=== PATIENT | male | born 1950 | race Caucasian/White ===

== ENCOUNTER 2020-09-04 06:08 | Inpatient (IN) ==
--- NOTE | 2020-08-20 13:58 | PAT Medication Instructions ---
Medication Instructions Date of Service August 20, 2020 Home Medications aspirin 81 mg PO UD atorvastatin [Lipitor] 40 mg PO QAM cholecalciferol (vitamin D3) 25 mcg PO QAM clopidogrel [Plavix] 75 mg PO QAM cyanocobalamin (vitamin B-12) [Vitamin B-12] 1,000 mcg PO QAM finasteride [Proscar] 5 mg PO QAM folic acid 1 mg PO QAM omeprazole 40 mg PO QAM Continue as directed aspirin 81 mg PO UD ASK your prescriber and surgeon clopidogrel [Plavix] 75 mg PO QAM DO NOT take the morning of surgery cholecalciferol (vitamin D3) 25 mcg PO QAM cyanocobalamin (vitamin B-12) [Vitamin B-12] 1,000 mcg PO QAM folic acid 1 mg PO QAM Take morning of surgery With a small sip of water, OTHERWISE NOTHING TO EAT OR DRINK AFTER MIDNIGHT: atorvastatin [Lipitor] 40 mg PO QAM finasteride [Proscar] 5 mg PO QAM omeprazole 40 mg PO QAM Other Notes If you have any questions please call us at [phone] or [phone] or [phone] or [phone]
--- NOTE | 2020-08-21 10:54 | Anesthesiology Consultation ---
Date of Service August 21, 2020 Assessment & Plan (1) Encounter for pre-operative examination: - COVID screening: Per assessment on 08/21: Travel screen negative, no known COVID-19 positive contacts or current COVID-19 related symptoms. Patient vaccinated. Surgeon arranging preop COVID testing (scheduled 09/02; SUSANNAH). Awaiting results. - ASA/plavix instructions: per surgeon/prescriber (to hold Plavix 7 days prior to surgery and continue ASA perioperatively) Chart Review Chart Review: Acceptable Risk for Surgery and Patient seen in Pre Admission Testing Teaching & Discussion Pre-Anesthesia Teaching/Discussion Notes: Instructed NPO after midnight before surgery,except medications with 15 cc of water. Medication instructions provided according to the PAT guidelines. History Surgery Operation Date: 09/04/20 12:25 Proposed Procedures p L3-L5 Decompression and Fusion, Spinal Cord Monitoring - Alex Ron DO Height/Weight Height: 6 ft 2 in Weight: 106.1 kg Allergies Allergy/AdvReac Type Severity Reaction Status Date / Time No Known Drug Allergies Allergy Verified 08/20/20 10:04 Medications Home Medications Medication Instructions Recorded Confirmed Last Taken aspirin 81 mg PO UD 08/20/20 08/20/20 Unknown atorvastatin [Lipitor] 40 mg PO QAM 08/20/20 08/20/20 Unknown cholecalciferol (vitamin D3) 25 mcg PO QAM 08/20/20 08/20/20 Unknown clopidogrel [Plavix] 75 mg PO QAM 08/20/20 08/20/20 Unknown cyanocobalamin (vitamin B-12) 1,000 mcg PO QAM 08/20/20 08/20/20 Unknown [Vitamin B-12] finasteride [Proscar] 5 mg PO QAM 08/20/20 08/20/20 Unknown folic acid 1 mg PO QAM 08/20/20 08/20/20 Unknown omeprazole 40 mg PO QAM 08/20/20 08/20/20 Unknown Past Medical History Medical History (Updated 08/21/20 @ 11:20 by Jordana Kirby) BPH (benign prostatic hyperplasia) GERD (gastroesophageal reflux disease) controlled Hiatal hernia Hyperlipidemia Sleep apnea CPAP Spinal stenosis Transient ischemic attack (TIA) x2 (2015)- on plavix Exercise / Class Metabolic Activity II 4-5 Yardwork/Stairs/Walk up hill (one flight of stairs (no chest pain, no sob)) Past Surgical History Surgical History History of arthroscopy R/L rotator cuff repairs (Rx1, Lx2) History of colonoscopy History of esophagogastroduodenoscopy (EGD) History of herniorrhaphy Right inguinal S/P eye surgery Right lens 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 Physical Exam Vital Signs VITALS BP 130/88 P 90 TEMP 97.9 SP02 97%RA RESP 18 PHYSICAL Full cervical extension range of motion. Full TMJ range of motion. TMD 4 finger breaths Mallampati Score 3 Dentition: missing molars, + crown (upper front) Lungs: clear throughout to auscultation Cardiac: regular rate and rhythm, no murmurs noted Spine: normal Carotid arteries: negative bruit Extremities: no edema Trimmed jaimes Lab Results Anesthesia Preop Results Results Anesthesia Widget: WBC 6.68 K/uL (4.8-10.8) 08/21/20 Hgb 15.3 g/dL (14.0-18.0) 08/21/20 Hct 44.5 % (42-52) 08/21/20 Plt 256 K/uL (130-400) 08/21/20 Na 141 mmol/L (136-145) 08/21/20 K 4.5 mmol/L (3.5-5.1) 08/21/20 Cl 113 mmol/L (98-107) H 08/21/20 CO2 24 mmol/L (21-32) 08/21/20 BUN 29 mg/dl (7-18) H 08/21/20 Creat 0.96 mg/dl (0.6-1.4) 08/21/20 Glucose Level 85 mg/dl (70-99) 08/21/20 PT 10.0 Seconds (9.0-12.0) 08/21/20 PTT 24.9 Seconds (21.0-31.0) 08/21/20 INR 1.0 (0.9-1.1) 08/21/20 Urine Color Yellow 08/21/20 Urine Appearance Clear (Clear) 08/21/20 Urine pH 8.0 (4.5-7.5) H 08/21/20 Urine Specific [place] 1.023 (1.000-1.030) 08/21/20 Urine Protein Negative (Negative) 08/21/20 Urine Glucose (UA) Negative (Negative) 08/21/20 Urine Ketones Negative (Negative) 08/21/20 Urine Blood 1+ (Negative) H 08/21/20 Urine Nitrite Negative (Negative) 08/21/20 Urine Bilirubin Negative (Negative) 08/21/20 Urine Urobilinogen Negative (Negative) 08/21/20 Urine Leukocyte Esterase Negative (Negative) 08/21/20 Urine WBC (Auto) 1-5 /hpf (0-5) 08/21/20 Urine RBC (Auto) 10-30 /hpf (0-4) H 08/21/20 Urine Hyaline Casts (Auto) 0 /lpf (0-5) 08/21/20 Urine Epithelial Cells (Auto) 10-20 /lpf (0-5) H 08/21/20 Urine Bacteria (Auto) Negative (Negative) 08/21/20 Blood Type A Positive 08/21/20 Antibody Screen NEGATIVE 08/21/20 Testing Electrocardiogram Date: 08/21/20 NSR at 82bpm. Leftward axis. Otherwise normal ECG. Chest X-Ray Date: 08/21/20 FINDINGS: The cardiac and mediastinal contours are normal. There is no evidence of focal pulmonary consolidation. There is no evidence of failure. No pleural effusions are visualized.[ There is a suspected hiatal hernia. There are moderate basilar atelectatic changes. IMPRESSION: Suspected hiatal hernia. Mild basilar atelectatic change
[~2020-09-04 06:08] MED LIST: ACETAMINOPHEN 500 MG TAB PO SCH; CeleBREX 200 MG CAP PO SCH; GABAPENTIN 300 MG CAP PO SCH; LACTATED RINGER'S 1,000 ML IV SCH; ceFAZolin 2000MG 2,000 MG/15 ML SYR IV SCH
[2020-09-04] MEDS ORDERED: MIDAZOLAM HCL 1 MG/ML 2ML VIAL ONE (06:55)
[2020-09-04] MEDS ORDERED: fentaNYL citrate 100 MCG/2 ML VIAL ONE (06:55)
[2020-09-04] MEDS ORDERED: HYDROmorphone INJ 2 MG/ML SYR/VIAL ONE (06:55)
[2020-09-04] MEDS ORDERED: fentaNYL citrate 100 MCG/2 ML VIAL IV PRN (07:00)
[2020-09-04] MEDS ORDERED: NALOXONE HCL 0.4 MG/1 ML VIAL/CARP IV PRN ×2 (07:00→11:50)
[2020-09-04] MEDS ORDERED: PROMETHAZINE HCL 12.5 MG in SODIUM CHLORIDE 0.9% 50 ML IV PRN ×2 (07:00→11:50)
[2020-09-04] MEDS ORDERED: ATROPINE SULFATE 0.1 MG/ML 10ML SYR IV PRN (07:00)
[2020-09-04] MEDS ORDERED: LABETALOL HCL IV 5 MG/ML 20ML IV PRN (07:00)
[2020-09-04] MEDS ORDERED: ONDANSETRON INJ 2 MG/ML 2 ML VIAL IV PRN ×2 (07:00→11:50)
[2020-09-04] MEDS ORDERED: ePHEDrine sulfate 50 MG/ML AMP IV PRN (07:00)
[2020-09-04] MEDS ORDERED: FLUMAZENIL 0.1 MG/1 ML 10 ML VIAL IV PRN (07:00)
[2020-09-04] MEDS ORDERED: HYDROmorphone INJ 1 MG/ML SYRINGE IV PRN ×2 (07:00→11:50)
[2020-09-04] MEDS ORDERED: SCOPOLAMINE 1 MG TDSY TD ONE (07:07)
--- NOTE | 2020-09-04 07:26 | History & Physical Bridge Note ---
Date of Service September 04, 2020 History & Physical Bridge Note I have examined the patient, reviewed the History & Physical and in the interval since the performance of the History & Physical I have noted the following changes of clinical significance: no changes noted
--- NOTE | 2020-09-04 07:27 | History & Physical Report ---
Date of Service September 04, 2020 Assessment & Plan (1) Neurogenic 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 spinal stenosis: Admission and Anticipated Discharge Date Admission Date: L3-L5 decompression fusion History of Present Illness Chief Complaint: Back and leg pain Primary Care Provider: Jessee Bello DO This is a 70-year-old male who presents with current persistent back and leg pain. Failing course of nonoperative care is here for surgical invention. Allergies Allergy/AdvReac Type Severity Reaction Status Date / Time No Known Drug Allergies Allergy Verified 09/04/20 06:56 Home Medications Medication Instructions Recorded Confirmed Type aspirin 81 mg PO UD 08/20/20 08/20/20 History atorvastatin [Lipitor] 40 mg PO QAM 08/20/20 08/20/20 History cholecalciferol (vitamin D3) 25 mcg PO QAM 08/20/20 09/04/20 History clopidogrel [Plavix] 75 mg PO QAM 08/20/20 09/04/20 History cyanocobalamin (vitamin B-12) 1,000 mcg PO QAM 08/20/20 09/04/20 History [Vitamin B-12] finasteride [Proscar] 5 mg PO QAM 08/20/20 09/04/20 History folic acid 1 mg PO QAM 08/20/20 09/04/20 History omeprazole 40 mg PO QAM 08/20/20 08/20/20 History Past Med/Surg History Medical History (Updated 09/04/20 @ 07:27 by Alex Ron DO) BPH (benign prostatic hyperplasia) GERD (gastroesophageal reflux disease) controlled Hiatal hernia Hyperlipidemia Sleep apnea CPAP Spinal stenosis Transient ischemic attack (TIA) x2 (2015)- on plavix Surgical History History of arthroscopy R/L rotator cuff repairs (Rx1, Lx2) History of colonoscopy History of esophagogastroduodenoscopy (EGD) History of herniorrhaphy Right inguinal S/P eye surgery Right lens 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, 3rd, 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) Status post repair of hydrocele Social History Smoking Status: Never smoker Do You Dip or Chew Tobacco: No; Hx Alcohol Use: No Hx Substance Use: No Preferred Language: [place] Timorese Manager Investment Banking Required: No Beliefs That Will Affect Care: None Current Living Situation: Spouse Other Information That Helps Us Care for You: No Feels Safe at Home: Yes Safety Concerns: Feels Safe At This Time Assistive Devices: Cane Physical Exam Physical Exam: Patient is alert and oriented Heart regular rate and rhythm Lungs clear to auscultation Results & Data ([facility]) Vital Signs (Past 12 Hours) Vital Signs Temp Pulse Resp BP Pulse Ox 09/04/20 06:40 36.5 C 88 18 174/100 H 97
[2020-09-04] MEDS ORDERED: FAMOTIDINE/PF 20 MG/2 ML VIAL IV ONE (07:29)
[2020-09-04] MEDS ORDERED: BUPIVACAINE/EPINEPHRINE 0.5% MPF 1:200,000 30 ML VIAL ONE (07:38)
[2020-09-04] MEDS ORDERED: KETAMINE 50 MG/5 ML SYRINGE ONE (08:05)
[2020-09-04] MEDS ORDERED: ALBUMIN HUMAN 5% 12.5 GM/250 ML VIAL IV ONE (08:06)
[2020-09-04] MEDS ORDERED: PHENYLEPHRINE HCL 10 MG/ML VIAL ONE (08:19)
[2020-09-04] MEDS ORDERED: PROPOFOL IV EMULSION 10 MG/ML 20 ML VIAL IV ONE (08:19)
[2020-09-04] MEDS ORDERED: ONDANSETRON INJ 2 MG/ML 2 ML VIAL ONE (08:19)
[2020-09-04] MEDS ORDERED: ROCURONIUM BROMIDE 10 MG/ML 5 ML VIAL IV ONE (08:19)
[2020-09-04] MEDS ORDERED: GLYCOPYRROLATE 0.2 MG/ML VIAL ONE (08:19)
[2020-09-04] MEDS ORDERED: PHENYLEPHRINE 100MCG/ML 5ML SYR ONE (08:19)
[2020-09-04] MEDS ORDERED: NEOSTIGMINE METHYLSULFATE 1 MG/ML 10ML VIAL ONE (08:19)
[2020-09-04] MEDS ORDERED: DEXAMETHASONE SOD INJ 4 MG/ML VIAL ONE (08:19)
[2020-09-04] MEDS ORDERED: LIDOCAINE 2% 2 ML VIAL/AMP(20MG/ML) INFIL ONE (08:19)
[2020-09-04] MEDS ORDERED: METOCLOPRAMIDE HCL INJ 5 MG/ML 2 ML VIAL ONE (08:19)
[2020-09-04] MEDS ORDERED: FLOSEAL HEMOSTATIC MATRIX 10ML TOP ONE (09:41)
--- NOTE | 2020-09-04 09:49 | Operative Report ---
Post Operative Report Pre & Post Diagnosis Operation Date: 09/04/20 07:45 Pre-Op Diagnosis: Spinal Stenosis, Lumbar Region with Neurogenic Claudication Post-Op Diagnosis: Spinal Stenosis, Lumbar Region with Neurogenic Claudication I identified the patient and participated in the time-out.: Yes Procedure Operation Date: 09/04/20 07:45 Actual Procedures #1 Lumbar decompression with bilateral medial facetectomies and foraminotomies L2-3, L3-4 and L4-5. #2 posterior spinal fusion L3-4 L4-5. #3 placement posterior instrumentation L3-4 L4-5. #4 interbody fusion L3-4 L4-5. #5 placement peek cage 12 x 26 mm at L3-4 and L4-5. #6 placement locally harvested morselized autograft in the posterior gutters. #7 placement of infuse collagen sponge, and master graft in the posterior lateral gutters and I factor in the interbody space. Surgeon Alex Ron, DO Line Dancer Thee Brown Estimated Blood Loss 300 Findings Consistent with Post-Op Diagnosis Specimens None Indications This is a 70-year-old male who presents with above-mentioned diagnosis after failed extensive course of nonoperative care is here for surgical intervention. Description of Procedure Patient was met with identified informed consent obtained. Patient was then taken to the operative suite underwent ablation placed in a prone position Maged table top Keyur frame. All bony prominences well-padded eyes inspected to ensure no external pressure placed upon the. This point the lumbar spine was prepped and draped in a sterile fashion. Sharp dissection with the assistance of Bovie cautery performed down to and exposing the lamina and transverse processes of L3-L4-L5 bilaterally. From a caudal cephalad fashion complete laminectomy L4 L3 and partial laminectomy of L2 was performed including bilateral medial facetectomies and foraminotomies addressing severe spinal stenosis. Pedicle screws were then placed in L3-L4-L5 bilaterally with assistance of fluoroscopy and the proper sized kandace placed. By way of a transforaminal approach on the right a complete discectomy of L3-4 L5 was p erformed endplates curetted to subcortical being bone and a 13 x 26 mm peek cage filled with I factor tapped in position. Then proceeded to L3-L4 and again by way of a transforaminal portion right complete discectomy was performed endplates curetted to subcortically bone and a 13 x 26 mm peek cage filled with I factor tapped position. The rods were then compressed locked in final position bilaterally. The transverse processes of L3-L4-L5 burred to subcortical bleeding bone. Infuse collagen sponge master graft local autograft was placed in the posterior gutters. 15 round HENRRY drain inserted. The incision was then closed with 1 Vicryl the fascia 2-0 Vicryl subcutaneously and 4 Monocryl for final skin closure. Steri-Strip sterile dressing placed. Patient waken taken PACU stable condition. Please note spinal cord monitoring was utilized at the procedure no changes noted. Lastly Thee Brown was present at the entire surgery involved the patient positioning complex portions of the surgery and final skin closure. I attest to the content of the Intraoperative Record and any orders documented therein. Any exceptions are noted below.
--- NOTE | 2020-09-04 09:54 | History & Physical Report ---
Date of Service September 04, 2020 Assessment & Plan (1) Neurogenic 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 spinal stenosis: Admission and Anticipated Discharge Date Admission Date: L1-L3 decompression fusion History of Present Illness Chief Complaint: Back and leg pain Primary Care Provider: Jessee Bello DO This is a 70-year-old male who presents with chronic persistent back and leg pain. Failing course of nonoperative care is here for surgical intervention. Allergies Allergy/AdvReac Type Severity Reaction Status Date / Time No Known Drug Allergies Allergy Verified 09/04/20 06:56 Home Medications Medication Instructions Recorded Confirmed Type aspirin 81 mg PO UD 08/20/20 08/20/20 History atorvastatin [Lipitor] 40 mg PO QAM 08/20/20 08/20/20 History cholecalciferol (vitamin D3) 25 mcg PO QAM 08/20/20 09/04/20 History clopidogrel [Plavix] 75 mg PO QAM 08/20/20 09/04/20 History cyanocobalamin (vitamin B-12) 1,000 mcg PO QAM 08/20/20 09/04/20 History [Vitamin B-12] finasteride [Proscar] 5 mg PO QAM 08/20/20 09/04/20 History folic acid 1 mg PO QAM 08/20/20 09/04/20 History omeprazole 40 mg PO QAM 08/20/20 08/20/20 History Past Med/Surg History Medical History (Updated 09/04/20 @ 07:27 by Alex Ron DO) BPH (benign prostatic hyperplasia) GERD (gastroesophageal reflux disease) controlled Hiatal hernia Hyperlipidemia Sleep apnea CPAP Spinal stenosis Transient ischemic attack (TIA) x2 (2015)- on plavix Surgical History History of arthroscopy R/L rotator cuff repairs (Rx1, Lx2) History of colonoscopy History of esophagogastroduodenoscopy (EGD) History of herniorrhaphy Right inguinal S/P eye surgery Right lens 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, 3rd, 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) Status post repair of hydrocele Social History Smoking Status: Never smoker Do You Dip or Chew Tobacco: No; Hx Alcohol Use: No Hx Substance Use: No Preferred Language: Indonesian Tower Director Required: No Beliefs That Will Affect Care: None Current Living Situation: Spouse Other Information That Helps Us Care for You: No Feels Safe at Home: Yes Safety Concerns: Feels Safe At This Time Assistive Devices: Cane Physical Exam Physical Exam: Patient is alert and oriented Heart regular rhythm Lungs clear to auscultation Results & Data ([facility]) Vital Signs (Past 12 Hours) Vital Signs Temp Pulse Resp BP Pulse Ox 09/04/20 06:40 36.5 C 88 18 174/100 H 97
--- NOTE | 2020-09-04 10:06 | Fluoroscopy Report ---
FL lumbar spine 2-3V CLINICAL HISTORY: L3-L5 DECOMPRESSION AND FUSION COMPARISON STUDY: None. FLUOROSCOPY TIME: 26 seconds. FINDINGS: 2 fluoroscopic spot images of the lumbar spine were submitted. There is posterior decompres ginny and fusion from L3 through L5 with pedicle screws and rods. The hardware appears intact. Disc sp aces are placed. IMPRESSION: Fluoroscopy provided for posterior decompression and fusion from L3 through L5. ACT 112: Negative or not required by law. Electronically signed by: Raúl Chan M.D. 09/04/2020 10:05 AM
[2020-09-04] MEDS ORDERED: MAGNESIUM HYDROXIDE SUSP 30 ML UDC PO PRN (11:50)
[2020-09-04] MEDS ORDERED: ACETAMINOPHEN 1,000 MG/100 ML VIAL IV PRN (11:50)
[2020-09-04] MEDS ORDERED: diphenhydrAMINE Capsule 25 MG CAP PO PRN (11:50)
[2020-09-04] MEDS ORDERED: ALUMINUM/MAGNESIUM SUSP 30 ML UDC PO PRN (11:50)
[2020-09-04] MEDS ORDERED: DO NOT ADMINISTER PNEUMOCOCCAL VACCINE PRN (11:50)
[2020-09-04] MEDS ORDERED: FAMOTIDINE 20 MG TAB PO PRN (11:50)
[2020-09-04] MEDS ORDERED: LORazepam 0.5 MG/1 ML VIAL IV PRN (11:50)
[2020-09-04] MEDS ORDERED: ONDANSETRON 4 MG OD TAB PO PRN (11:50)
[2020-09-04] MEDS ORDERED: LORazepam 0.5 MG TAB PO PRN (11:50)
[2020-09-04] MEDS ORDERED: HYDROmorphone INJ 0.5 MG/0.5 ML SYR IV PRN (11:50)
[2020-09-04] MEDS ORDERED: DO NOT ADMINISTER FLU VACCINE PRN (11:50)
[2020-09-04] MEDS ORDERED: ACETAMINOPHEN 500 MG TAB PO PRN (11:50)
[2020-09-04] MEDS ORDERED: METOCLOPRAMIDE HCL INJ 5 MG/ML 2 ML VIAL IV PRN (11:50)
[2020-09-04] MEDS ORDERED: SOD PHOSPHATE/SOD BIPHOSPHATE ENEMA 132 ML BTL PR PRN (11:50)
[2020-09-04] MEDS ORDERED: hydrOXYzine HCl 25 MG TAB PO PRN (11:50)
--- NOTE | 2020-09-04 12:03 | Anesthesiology Progress Note ---
Date of Service September 04, 2020 Anesthesia Post Procedure Vital Signs Vital Signs: Temp Pulse Pulse Resp BP BP Pulse Ox 09/04/20 11:23 80 22 124/72 95 09/04/20 11:05 90 20 123/71 94 09/04/20 10:55 79 20 126/74 97 09/04/20 10:45 82 20 129/74 97 09/04/20 10:35 82 20 121/70 97 09/04/20 10:25 82 20 139/77 98 09/04/20 10:17 36.2 C L 100 H 16 144/76 H 98 09/04/20 06:40 36.5 C 88 18 174/100 H 97 Transfer of Care Handoff Completed per policy Notes Mental Status: alert / awake / arousable Patient Amnestic to Procedure: Yes Nausea / Vomiting: adequately controlled Pain: adequately controlled Airway Patency, RR, SpO2: stable & adequate BP & HR: stable & adequate Hydration State: stable & adequate Anesthetic Complications: no major complications apparent
--- NOTE | 2020-09-04 15:28 | Hospitalist Consultation ---
Date of Consultation September 04, 2020 Assessment & Plan (1) S/P spinal surgery: This is a 70yo M with PMH of TIAs, GERD, obstructive sleep apnea on CPAP, hyperlipidemia, BPH and other medical problems below who is POD#0 s/p lumbar decompression with bilateral medial facetectomies and foraminotomies L2-3, L3-4 and L4-5 and posterior spinal fusion L3-4 L4-[address] Ron. POD#0 s/p lumbar decompression with bilateral medial facetectomies and foraminotomies L2-3, L3-4 and L4-5 and posterior spinal fusion L3-4 L4-[address] Ron Per ortho for pain control, wound care, anticoagulation and activities Monitor H&H (EBL: 300ml, pre-op hgb 15.3) Continue incentive spirometry, PT/OT when appropriate (2) Transient ischemic attack (TIA): History of TIAs in 2013 Continue aspirin, statin Recommend resuming Plavix as soon as appropriate in post-op setting, per Dr. Ron (3) Sleep apnea: CPAP HS (4) Hyperlipidemia: Continue statin (5) BPH (benign prostatic hyperplasia): Continue Proscar Bladder scan PRN (6) GERD (gastroesophageal reflux disease): Continue PPI PCP: Dr. Hooks ([place]) Dispo: Per ortho Patient seen in collaboration with Dr. Avila. Please see addendum. Thank you for this consultation. We will follow the patient with you during their hospital stay. You can reach a member of the [facility] Hospitalist Team 17/10 via [employer]. Supervising Physician Co-Signing Physician Notes Patient seen and examined by me, care coordinated with Herlinda Breaux PA-C, please refer to her note above for further detail. Pt is a 70yo M with PMH of TIAs, GERD, obstructive sleep apnea on CPAP, hyperlipidemia, BPH , hiatal hernia, who is POD#0 s/p lumbar decompression with bilateral medial facetectomies and foraminotomies L2-3, L3-4 and L4-5 and posterior spinal fusion L3-4 L4-[address] Ron. Patient tolerated procedure well, currently laying in bed, in no acute distress. He is alert and oriented, answering questions appropriately. Patient's at the bedside. Pt denies any fevers, chills, chest pain, shortness of breath. Says that his legs are already feeling better. Has minimal back pain right now after surgery. Lungs are clear to auscultation bilaterally, w/o any wheezing rhonchi crackles. Heart sounds regular. Abdomen soft, nontender nondistended. Patient moves extremities. Continue to monitor hemodynamic status, H&H, Plavix restart per Dr. Ron, when appropriate. Jocelyn Avila MD History of Present Illness Reason for Consultation: post op med mgmt Attending Physician: Alex Ron DO History of Present Illness This is a 70yo M with PMH of TIAs, GERD, obstructive sleep apnea on CPAP, hyperlipidemia, BPH and other medical problems below who is POD#0 s/p lumbar decompression with bilateral medial facetectomies and foraminotomies L2-3, L3-4 and L4-5 and posterior spinal fusion L3-4 L4-[address] Ron. Feeling well postoperatively. Minimal surgical site discomfort. No paresthesias or pain in bilateral lower extremities. Tolerating diet without issue. Denies any nausea, vomiting,abdominal pain or diarrhea. No fever, chills, lightheadedness, chest pain, palpitations or shortness of breath. History of 2 TIAs in 2013. Is on aspirin, Plavix and statin. Receives primary care from Dr. Hooks in [place]. Allergies Allergy/AdvReac Type Severity Reaction Status Date / Time No Known Drug Allergies Allergy Verified 09/04/20 06:56 Home Medications Medication Instructions Recorded Confirmed Type aspirin 81 mg PO UD 08/20/20 08/20/20 History atorvastatin [Lipitor] 40 mg PO QAM 08/20/20 08/20/20 History cholecalciferol (vitamin D3) 25 mcg PO QAM 08/20/20 09/04/20 History clopidogrel [Plavix] 75 mg PO QAM 08/20/20 09/04/20 History cyanocobalamin (vitamin B-12) 1,000 mcg PO QAM 08/20/20 09/04/20 History [Vitamin B-12] finasteride [Proscar] 5 mg PO QAM 08/20/20 09/04/20 History folic acid 1 mg PO QAM 08/20/20 09/04/20 History omeprazole 40 mg PO QAM 08/20/20 08/20/20 History Patient History Medical History BPH (benign prostatic hyperplasia) GERD (gastroesophageal reflux disease) controlled Hiatal hernia Hyperlipidemia Sleep apnea CPAP Spinal stenosis Transient ischemic attack (TIA) x2 (2016)- on plavix Surgical History History of arthroscopy R/L rotator cuff repairs (Rx1, Lx2) History of colonoscopy History of esophagogastroduodenoscopy (EGD) History of herniorrhaphy Right inguinal S/P eye surgery Right lens 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, 3rd, 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) Status post repair of hydrocele Family History Other Hypertension Social History Smoking Status: Never smoker Do You Dip or Chew Tobacco: No; Hx Alcohol Use: No Hx Substance Use: No Preferred Language: Tunisian Communication Ability: Effective Pediatric Anesthesiologist Required: No Beliefs That Will Affect Care: None marital status: Current Living Situation: Spouse Other Information That Helps Us Care for You: No Feels Safe at Home: Yes Safety Concerns: Feels Safe At This Time Assistive Devices: Cane Review of Systems Review of Systems: At least ten systems reviewed and negative except as noted in the HPI. Physical Exam Physical Exam: General Appearance: WD/WN, vitals as above, NAD, sitting up in bed, pleasant, conversing easily Head: normocephalic, atraumatic Eyes: normal inspection, PERRL, conjunctivae normal, anicteric sclerae ENT: external ear and nose normal, oropharynx normal Neck: normal visual inspection, trachea midline, no thyromegaly Respiratory: normal respiratory effort, lungs clear to auscultation, no wheeze, rales, rhonchi. No accessory muscle use Cardiovascular: regular rate, rhythm, no murmur, normal peripheral pulses, no BLE edema Abdomen/GI: normal bowel sounds, soft, nontender, no hepatosplenomegaly : Bo in place Extremities/Musculoskeletal: +Lumbar surgical dressing c/d/i. + HENRRY drain visualized. No cyanosis or clubbing, extremities motor strength 5/5 Neurologic: PERRL, CN's II-XI intact bilaterally and moves all extremities Psychiatric: A+Ox3, euthymic affect Skin: no rashes, normal color, warm/dry Results & Data Results & Data ([facility]) Vital Signs (Past 12 Hours) Vital Signs Temp Pulse Pulse Resp BP BP Pulse Ox 09/04/20 14:15 105 H 18 138/81 96 09/04/20 13:55 36.4 C L 88 12 119/72 97 09/04/20 13:15 99 H 19 107/74 96 09/04/20 12:50 96 H 12 118/68 97 09/04/20 12:30 106 H 18 111/63 94 09/04/20 11:55 87 20 120/65 94 09/04/20 11:40 87 22 121/69 95 09/04/20 11:23 80 22 124/72 95 09/04/20 11:05 90 20 123/71 94 09/04/20 10:55 79 20 126/74 97 09/04/20 10:45 82 20 129/74 97 09/04/20 10:35 82 20 121/70 97 09/04/20 10:25 82 20 139/77 98 09/04/20 10:17 36.2 C L 100 H 16 144/76 H 98 09/04/20 06:40 36.5 C 88 18 174/100 H 97 Diagnostic Findings Lumbar Spine X-Ray 09/04/20 07:45 FL lumbar spine 2-3V CLINICAL HISTORY: L3-L5 DECOMPRESSION AND FUSION COMPARISON STUDY: None. FLUOROSCOPY TIME: 26 seconds. FINDINGS: 2 fluoroscopic spot images of the lumbar spine were submitted. There is posterior decompression and fusion from L3 through L5 with pedicle screws and rods. The hardware appears intact. Disc spaces are placed. IMPRESSION: Fluoroscopy provided for posterior decompression and fusion from L3 through L5. ACT 112: Negative or not required by law. Electronically signed by: Raúl Chan M.D. 09/04/2020 10:05 AM
[2020-09-04] MEDS: ceFAZolin 2000MG 2,000 MG/15 ML SYR IV SCH ×2 (18:15→22:51)
[2020-09-04] MEDS: LACTATED RINGER'S 1,000 ML IV SCH ×3 (18:15→23:53)
[2020-09-04] MEDS: DOCUSATE SODIUM/SENNA 50/8.6MG TAB PO SCH (19:58)
[2020-09-04] MEDS: oxyCODONE HCL IR 5 MG TAB (IMMEDIATE RELEASE) PO PRN (22:51)
[2020-09-05] MEDS ORDERED: Nursing to Pharmacy Communication SCH (05:15)
[2020-09-05] MEDS: POLYETHYLENE (MIRALAX) 17 GM PACK PO SCH ×3 (05:32→19:40)
[2020-09-05 06:00] LABS: Basophils # (auto) 0.01 K/uL (0-0.2); Basophils % (auto) 0.1 %; Eosinophils # (auto) 0.02 K/uL (0-0.5); Eosinophils % (auto) 0.2 %; Hematocrit (blood only) 35.7 % (42-52); Hemoglobin 12.2 g/dL (14.0-18.0); Immature Granulocytes # (auto) 0.03 K/uL (0.00-0.02); Immature Granulocytes % (auto) 0.2 %; Lymphocytes # (auto) 1.19 K/uL (1.2-3.4); Lymphocytes % (auto) 9.9 %; Mean Corpuscular Hemoglobin 32.2 pg (25-34); Mean Corpuscular Hgb Conc 34.2 g/dL (32-36); Mean Corpuscular Volume 94.2 fL (80-100); Mean Platelet Volume 8.9 fL (7.4-10.4); Monocytes # (auto) 1.34 K/uL (0.11-0.59); Monocytes % (auto) 11.2 %; Neutrophils # (auto) 9.42 K/uL (1.4-6.5); Neutrophils % (auto) 78.4 %; Platelet Count 219 K/uL (130-400); RDW Coefficient of Variation 13.5 % (11.5-14.5); RDW Standard Deviation 46.1 fL (36.4-46.3); Red Blood Count 3.79 M/uL (4.7-6.1); White Blood Count 12.01 K/uL (4.8-10.8)
[2020-09-05 06:19] LABS: BUN Creatinine Ratio 20.6 (10-20); Calcium 8.4 mg/dl (8.5-10.1); Creatinine Clr Calc Pharmacy 85.9 ml/min; Est GFR (African American) 86.8 ml/min; Est GFR (Non-African American) 74.9 ml/min; Potassium 4.1 mmol/L (3.5-5.1)
[2020-09-05] MEDS: CHOLECALCIFEROL 1,000 UNITS 25 MCG TAB PO SCH (08:41)
[2020-09-05] MEDS: PANTOprazole 40 MG TAB PO SCH (08:41)
[2020-09-05] MEDS: ATORVASTATIN 40 MG TAB PO SCH (08:41)
[2020-09-05] MEDS: FOLIC ACID 1 MG TAB PO SCH (08:42)
[2020-09-05] MEDS: CYANOCOBALAMIN 500 MCG TABLET (VITAMIN B-12) PO SCH (08:42)
[2020-09-05] MEDS: FINASTERIDE 5 MG TAB PO SCH (08:42)
--- NOTE | 2020-09-05 08:51 | Hospitalist Progress Note ---
Date of Service September 05, 2020 Assessment & Plan (1) S/P spinal surgery: This is a 70yo M with PMH of TIAs, GERD, obstructive sleep apnea on CPAP, hyperlipidemia, BPH and other medical problems below who is POD#0 s/p lumbar decompression with bilateral medial facetectomies and foraminotomies L2-3, L3-4 and L4-5 and posterior spinal fusion L3-4 L4-[address] Ron. POD#2 s/p lumbar decompression with bilateral medial facetectomies and foraminotomies L2-3, L3-4 and L4-5 and posterior spinal fusion L3-4 L4-[address] Ron Per ortho for pain control, wound care, anticoagulation and activities Monitor H&H (pre-op hgb 15.3, now 12.2) Continue incentive spirometry, PT/OT when appropriate Mild acute blood loss anemia, postop, dilutional Current hemoglobin 12.2, preop 15.3 Expected, no need for blood transfusion, continue to monitor H&H (2) Transient ischemic attack (TIA): History of TIAs in 2013 Continue aspirin, statin Recommend resuming Plavix as soon as appropriate in post-op setting, per Dr. Ron (3) Sleep apnea: CPAP HS (4) Hyperlipidemia: Continue statin (5) BPH (benign prostatic hyperplasia): Continue Proscar Bladder scan PRN (6) GERD (gastroesophageal reflux disease): Continue PPI PCP: Dr. Hooks ([place]) Dispo: Per ortho Thank you for this consultation. We will follow the patient with you during their hospital stay. You can reach a [facility] via [place] Text. Admission and Anticipated Discharge Date Admission Date: September 04, 2020 Subjective Patient seen in follow-up postop spinal surgery Currently is lying in bed, in no acute distress, had uneventful night however did not sleep much Denies any chest pain, shortness of breath, abdominal pain, nausea or vomiting He is moving extremities, was walking in hallway today Bo catheter was just removed Review of Systems Review of Systems: All systems reviewed & are unremarkable except as noted in HPI & below Constitutional: no fever and no chills Respiratory: no cough and no dyspnea Cardiovascular: no chest pain and no palpitations Gastrointestinal: no abdominal pain, no nausea and no vomiting Physical Exam Physical Exam: General Appearance: WD/WN, vitals as above, NAD, sitting up in bed, pleasant, conversing easily Head: normocephalic, atraumatic Eyes: normal inspection, PERRL, conjunctivae normal, anicteric sclerae ENT: external ear and nose normal, oropharynx normal Neck: normal visual inspection, trachea midline, no thyromegaly Respiratory: normal respiratory effort, lungs clear to auscultation, no wheeze, rales, rhonchi. No accessory muscle use Cardiovascular: regular rate, rhythm, no murmur, normal peripheral pulses, no BLE edema Abdomen/GI: normal bowel sounds, soft, nontender : Bo removed (09/05) Extremities/Musculoskeletal: +Lumbar surgical dressing c/d/i. + HENRRY drain visualized. No cyanosis or clubbing, extremities motor strength 5/5 Neurologic: PERRL, EOMI, no facial asymmetry, speech fluent, moves all extremities Psychiatric: A+Ox3, euthymic affect Skin: no rashes, normal color, warm/dry Results & Data Results & Data ([facility]) Vital Signs (Past 12 Hours) Vital Signs Temp Pulse Resp BP Pulse Ox 09/05/20 03:09 36.6 C 90 16 123/69 98 09/04/20 23:05 36.5 C 68 16 127/75 97 Laboratory Results 09/05/20 09/05/20 Range/Units 05:39 05:39 WBC 12.01 H (4.8-10.8) K/uL RBC 3.79 L (4.7-6.1) M/uL Hgb 12.2 L (14.0-18.0) g/dL Hct 35.7 L (42-52) % MCV 94.2 (80-100) fL MCH 32.2 (25-34) pg MCHC 34.2 (32-36) g/dL RDW Std Deviation 46.1 (36.4-46.3) fL RDW Coeff of Catina 13.5 (11.5-14.5) % Plt Count 219 (130-400) K/uL MPV 8.9 (7.4-10.4) fL Immature Gran % (Auto) 0.2 % Neut % (Auto) 78.4 % Lymph % (Auto) 9.9 % Schleicher % (Auto) 11.2 % Eos % (Auto) 0.2 % Baso % (Auto) 0.1 % Neut # (Auto) 9.42 H (1.4-6.5) K/uL Lymph # (Auto) 1.19 L (1.2-3.4) K/uL Schleicher # (Auto) 1.34 H (0.11-0.59) K/uL Eos # (Auto) 0.02 (0-0.5) K/uL Baso # (Auto) 0.01 (0-0.2) K/uL Immature Gran # (Auto) 0.03 H (0.00-0.02) K/uL Sodium 141 (136-145) mmol/L Potassium 4.1 (3.5-5.1) mmol/L Chloride 110 H (98-107) mmol/L Carbon Dioxide 26 (21-32) mmol/L Anion Gap 5.0 (3-11) BUN 21 H (7-18) mg/dl Creatinine 1.00 (0.6-1.4) mg/dl Est Cr Clr Drug Dosing 85.9 ml/min Est GFR ( Amer) 86.8 ml/min Est GFR (Non-Af Amer) 74.9 ml/min BUN/Creatinine Ratio 20.6 H (10-20) Glucose 116 H (70-99) mg/dl Calcium 8.4 L (8.5-10.1) mg/dl Medications Administered Current Inpatient Medications Acetaminophen (Acetaminophen 500 Mg Tab) 1,000 mg PO Q8H PRN PRN Reason: MILD Pain Scale 1,2,3 & Pre PT Stop: 10/04/20 11:49 Al Hydrox/Mg Hydrox/Simethicone (Aluminum/Magnesium Susp 30 Ml Udc) 30 ml PO Q6H PRN PRN Reason: Dyspepsia Stop: 10/04/20 11:49 Aspirin (Aspirin 81 Mg Ectab) 81 mg PO [id number] [facility] Stop: 10/07/20 08:59 Atorvastatin Calcium (Atorvastatin 40 Mg Tab) 40 mg PO QAM [facility] Stop: 10/05/20 08:59 Last Admin: 09/05/20 08:41 Dose: 40 mg Documented by: Bisacodyl (Bisacodyl 10 Mg Supp) 10 mg [place] DAILY PRN PRN Reason: Constipation Stop: 10/06/20 09:49 Cyanocobalamin (Cyanocobalamin 500 Mcg Tablet (Vitamin B-12)) [facility] Stop: 10/05/20 08:59 Last Admin: 09/05/20 08:42 Dose: 1,000 mcg Documented by: Diphenhydramine HCl (Diphenhydramine Capsule 25 Mg Cap) 25 mg PO Q6H PRN PRN Reason: Allergic Rhinitis/Insomnia Stop: 10/04/20 11:49 Famotidine (Famotidine 20 Mg Tab) 20 mg PO Q12H PRN PRN Reason: Dyspepsia Stop: 10/04/20 11:49 Finasteride (Finasteride 5 Mg Tab) 5 mg PO [facility] Stop: 10/05/20 08:59 Last Admin: 09/05/20 08:42 Dose: 5 mg Documented by: Folic Acid (Folic Acid 1 Mg Tab) 1 mg PO [facility] Stop: 10/05/20 08:59 Last Admin: 09/05/20 08:42 Dose: 1 mg Documented by: Hydromorphone HCl (Hydromorphone Inj 0.5 Mg/0.5 Ml Syr) 0.5 mg IV Q3H PRN PRN Reason: MOD pain (scale 4-6) & Pre PT Stop: 09/18/20 11:49 Hydromorphone HCl (Hydromorphone Inj 1 Mg/Ml Syringe) 1 mg IV Q3H PRN PRN Reason: severe pain (scale 7-10) Stop: 09/18/20 11:49 Hydroxyzine HCl (Hydroxyzine Hcl 25 Mg Tab) 25 mg PO Q8H PRN PRN Reason: Anxiety Stop: 10/04/20 11:49 Promethazine HCl 12.5 mg/ (Sodium Chloride) 50.5 mls @ 202 mls/hr IV Q6H PRN PRN Reason: Nausea &/or Vomiting Stop: 10/04/20 11:49 Acetaminophen (Ofirmev) 1,000 mg in 100 mls @ 400 mls/hr IV Q8H PRN PRN Reason: Pain Rating 1-3 & Pre PT Stop: 09/05/20 09:50 Lorazepam (Ativan) 0.5 mg in 1 mls @ 1 mls/min IV Q8H PRN PRN Reason: Sedation/Anxiety Stop: 10/04/20 11:49 Influenza Virus Vaccine Quadrival (Do Not Administer Flu Vaccine) 1 ea N/A PRN PRN PRN Reason: Notification Stop: 10/04/20 11:49 Lorazepam (Lorazepam 0.5 Mg Tab) 0.5 mg PO Q8H PRN PRN Reason: sedation/anxiety Stop: 10/04/20 11:49 Last Admin: 09/04/20 22:38 Dose: 0.5 mg Documented by: Magnesium Hydroxide (Magnesium Hydroxide Susp 30 Ml Udc) 30 ml PO Q24H PRN PRN Reason: Constipation Stop: 10/04/20 11:49 Metoclopramide HCl (Metoclopramide Hcl Inj 5 Mg/Ml 2 Ml Vial) 10 mg IV Q6H PRN PRN Reason: Nausea &/or Vomiting Stop: 10/04/20 11:49 Naloxone HCl (Naloxone Hcl 0.4 Mg/1 Ml Vial/Carp) 0.1 mg IV Q5M PRN PRN Reason: Oversedation/respiratory dep Stop: 10/04/20 11:49 Ondansetron HCl (Ondansetron Inj 2 Mg/Ml 2 Ml Vial) 4 mg IV Q6H PRN PRN Reason: Nausea &/or Vomiting Stop: 10/04/20 11:49 Ondansetron HCl (Ondansetron 4 Mg Od Tab) 4 mg PO Q6H PRN PRN Reason: Nausea Stop: 10/04/20 11:49 Oxycodone HCl (Oxycodone Hcl Ir 5 Mg Tab (Immediate Release)) 5 - 10 mg PO Q4H PRN PRN Reason: Pain & Pre PT Stop: 09/18/20 11:49 Last Admin: 09/04/20 22:51 Dose: 5 mg Documented by: Pantoprazole Sodium (Pantoprazole 40 Mg Tab) 40 mg PO QAM [facility]; Protocol Stop: 10/05/20 08:59 Last Admin: 09/05/20 08:41 Dose: 40 mg Documented by: Pneumococcal Polyvalent Vaccine (Do Not Administer Pneumococcal Vaccine) 1 ea N/A PRN PRN PRN Reason: Notification Stop: 10/04/20 11:49 Polyethylene Glycol (Polyethylene (Miralax) 17 Gm Pack) 17 gm PO Q6 [facility] Stop: 10/05/20 05:59 Last Admin: 09/05/20 05:32 Dose: 17 gm Documented by: Senna/Docusate Sodium (Docusate Sodium/Senna 50/8.6mg Tab) 2 tab PO HS [facility] Stop: 10/04/20 20:59 Last Admin: 09/04/20 19:58 Dose: 2 tab Documented by: Sodium Biphosphate/Sodium Phosphate (Sod Phosphate/Sod Biphosphate Enema 132 Ml Btl) 132 ml [place] ONE PRN PRN Reason: Constipation Stop: 10/04/20 11:49 Tramadol HCl (Tramadol Hcl 50 Mg Tablet) 50 - 100 mg PO Q4H PRN PRN Reason: Moderate-Severe pain & Pre PT Stop: 10/04/20 11:49 Vitamin D (Cholecalciferol 1,000 Units 25 Mcg Tab) 1,[facility] Stop: 10/05/20 08:59 Last Admin: 09/05/20 08:41 Dose: 1,000 units Documented by:
[2020-09-05] MEDS: oxyCODONE HCL IR 5 MG TAB (IMMEDIATE RELEASE) PO PRN ×3 (10:01→16:30)
--- NOTE | 2020-09-05 10:49 | Orthopedic Progress Note ---
Date of Service September 05, 2020 Assessment & Plan (1) Neurogenic 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 spinal stenosis: Admission and Anticipated Discharge Date Admission Date: September 04, 2020 This time we will continue physical therapy monitor his HENRRY output anticipate discharge home Monday. Subjective Patient's back pain is controlled leg symptoms improved Physical Exam Physical Exam: Patient is in the chair at the bedside. Is good strength testing. Appears comfortable. Results & Data ([facility]) Vital Signs (Past 12 Hours) Vital Signs Temp Pulse Resp BP Pulse Ox 09/05/20 03:09 36.6 C 90 16 123/69 98 09/04/20 23:05 36.5 C 68 16 127/75 97
[2020-09-05] MEDS ORDERED: SODIUM CHLORIDE 0.9% 1000ML 500 ML IV ONE (18:45)
--- NOTE | 2020-09-05 19:09 | Hospitalist Progress Note ---
Date of Service September 05, 2020 Assessment & Plan Admission and Anticipated Discharge Date Admission Date: September 04, 2020 Subjective Called by the nursing staff at the bedside for the patient. Apparently patient was sleeping soundly, received pain medications around 4:30 PM. Then he got up on his own and was a bit confused. Unfortunately he also pulled out his drain at that time. Nursing staff then got patient to the chair and placed dressings over the site. Reportedly there was still a lot of serosanguineous fluid in the drain. He then reportedly had episode of reduced consciousness. However nursing staff also reports that he was able to answer questions appropriately during this time. Also surgical team was notified about the drain yet. Now positioned in bed, back to baseline. He is alert and oriented answering questions appropriately. He denies any chest pain, shortness of breath, dizziness, or lightheadedness. He is able to move all 4 extremities spontaneously and without difficulty. There is no sensory loss. There is no facial asymmetry. Speech is fluent. Heart sounds regular, breath sounds clear. Abdomen soft nontender to palpation. Patient may have had a vasovagal episode but will further evaluate, ordered 500 bolus of normal saline. Stat CBC BMP, EKG. Will notify the music composer to follow-up and monitor the patient. Jocelyn Avila MD Results & Data Results & Data ([facility]) Vital Signs (Past 12 Hours) Vital Signs Temp Pulse Resp BP Pulse Ox 09/05/20 14:58 36.6 C 77 16 103/63 99 09/05/20 07:05 36.7 C 76 16 106/64 99
[2020-09-05 19:49] LABS: Hemoglobin 11.3 g/dL (14.0-18.0); Mean Corpuscular Hemoglobin 32.3 pg (25-34); Mean Corpuscular Volume 97.1 fL (80-100); Mean Platelet Volume 9.2 fL (7.4-10.4); Platelet Count 217 K/uL (130-400); RDW Coefficient of Variation 13.5 % (11.5-14.5); RDW Standard Deviation 47.6 fL (36.4-46.3); White Blood Count 8.02 K/uL (4.8-10.8)
[2020-09-05 20:05] LABS: BUN Creatinine Ratio 23.7 (10-20); Calcium 7.6 mg/dl (8.5-10.1); Creatinine Clr Calc Pharmacy 90.4 ml/min; Est GFR (African American) 92.3 ml/min; Est GFR (Non-African American) 79.7 ml/min; Magnesium 1.7 mg/dl (1.8-2.4); Potassium 4.3 mmol/L (3.5-5.1)
[2020-09-05] MEDS: DOCUSATE SODIUM/SENNA 50/8.6MG TAB PO SCH (20:26)
[2020-09-05 20:29] LABS: Mean Corpuscular Hgb Conc 33.2 g/dL (32-36)
[2020-09-06] MEDS: POLYETHYLENE (MIRALAX) 17 GM PACK PO SCH ×4 (00:29→18:12)
[2020-09-06] MEDS: traMADol HCL 50 MG TABLET PO PRN ×2 (00:53→05:38)
[2020-09-06 06:03] LABS: Hematocrit (blood only) 34.6 % (42-52); Hemoglobin 11.8 g/dL (14.0-18.0); Mean Corpuscular Hemoglobin 32.5 pg (25-34); Mean Corpuscular Hgb Conc 34.1 g/dL (32-36); Mean Corpuscular Volume 95.3 fL (80-100); Mean Platelet Volume 9.2 fL (7.4-10.4); Platelet Count 214 K/uL (130-400); RDW Coefficient of Variation 13.5 % (11.5-14.5); RDW Standard Deviation 47.1 fL (36.4-46.3); Red Blood Count 3.63 M/uL (4.7-6.1); White Blood Count 9.42 K/uL (4.8-10.8)
[2020-09-06 06:26] LABS: BUN Creatinine Ratio 22.6 (10-20); Calcium 8.6 mg/dl (8.5-10.1); Creatinine Clr Calc Pharmacy 98.8 ml/min; Est GFR (African American) 99.9 ml/min; Est GFR (Non-African American) 86.2 ml/min; Magnesium 1.8 mg/dl (1.8-2.4)
[2020-09-06] MEDS ORDERED: SODIUM PHOSPHATE 3 MMOL/1 ML INFUSION IV STA (06:58)
--- NOTE | 2020-09-06 07:06 | Hospitalist Progress Note ---
Date of Service September 06, 2020 Assessment & Plan (1) S/P spinal surgery: This is a 70yo M with PMH of TIAs, GERD, obstructive sleep apnea on CPAP, hyperlipidemia, BPH and other medical problems below who is POD#0 s/p lumbar decompression with bilateral medial facetectomies and foraminotomies L2-3, L3-4 and L4-5 and posterior spinal fusion L3-4 L4-[address] Ron. S/p lumbar decompression with bilateral medial facetectomies and foraminotomies L2-3, L3-4 and L4-5 and posterior spinal fusion L3-4 L4-[address] Ron Per ortho for pain control, wound care, anticoagulation and activities Monitor H&H (pre-op hgb 15.3, now 12.2) Continue incentive spirometry, PT/OT when appropriate Mild acute blood loss anemia, postop, dilutional Current hemoglobin 11.8 stable from yesterday 12.2, (preop 15.3) Expected, no need for blood transfusion, continue to monitor H&H (2) Transient ischemic attack (TIA): History of TIAs in 2013 Continue aspirin, statin Recommend resuming Plavix as soon as appropriate in post-op setting, per Dr. Ron (3) Sleep apnea: CPAP HS (4) Hyperlipidemia: Continue statin (5) BPH (benign prostatic hyperplasia): Continue Proscar Bladder scan PRN (6) GERD (gastroesophageal reflux disease): Continue PPI PCP: Dr. Hooks ([place]) Dispo: Per ortho Thank you for this consultation. We will follow the patient with you during their hospital stay. You can [facility] via [place] Text. Admission and Anticipated Discharge Date Admission Date: September 04, 2020 Subjective Patient seen in follow-up postop spinal surgery Currently is sitting up in chair, just walked from the bathroom, in no acute distress Denies any chest pain, shortness of breath, abdominal pain, nausea or vomiting Currently sitting in the chair, in no acute distress, feeling quite well. He says he feels much better than yesterday. He had episode last evening when he got up from bed confused and pulled his drain. Then had also reduced consciousness per nursing staff. On my evaluation, exam was unremarkable at that time. No significant change on the labs or EKG. Patient feels that it was likely due to pain medications. Currently no complaints at all. Eating well, voiding, passing gas but no bowel movement yet. Review of Systems Review of Systems: All systems reviewed & are unremarkable except as noted in HPI & below Constitutional: no fever and no chills Respiratory: no cough and no dyspnea Cardiovascular: no chest pain and no palpitations Gastrointestinal: no abdominal pain, no nausea and no vomiting Physical Exam Physical Exam: General Appearance: WD/WN, vitals as above, NAD, sitting up in bed, pleasant, conversing easily Head: normocephalic, atraumatic Eyes: normal inspection, PERRL, conjunctivae normal, anicteric sclerae ENT: external ear and nose normal, oropharynx normal Neck: normal visual inspection, trachea midline, no thyromegaly Respiratory: normal respiratory effort, lungs clear to auscultation, no wheeze, rales, rhonchi. No accessory muscle use Cardiovascular: regular rate, rhythm, no murmur, normal peripheral pulses, no BLE edema Abdomen/GI: normal bowel sounds, soft, nontender : Bo removed (09/05) Extremities/Musculoskeletal: +Lumbar surgical dressing c/d/i. (HENRRY drain removed accidentally by the pt). No cyanosis or clubbing, extremities motor strength 5/5 Neurologic: PERRL, EOMI, no facial asymmetry, speech fluent, moves all extremities Psychiatric: A+Ox3, euthymic affect Skin: no rashes, normal color, warm/dry Results & Data Results & Data ([facility]) Vital Signs (Past 12 Hours) Vital Signs Temp Pulse Resp BP Pulse Ox 09/05/20 22:01 36.9 C 88 18 99/54 L 97 Laboratory Results 09/06/20 09/06/20 09/05/20 Range/Units 05:33 05:33 19:13 WBC 9.42 (4.8-10.8) K/uL RBC 3.63 L (4.7-6.1) M/uL Hgb 11.8 L (14.0-18.0) g/dL Hct 34.6 L (42-52) % MCV 95.3 (80-100) fL MCH 32.5 (25-34) pg MCHC 34.1 (32-36) g/dL RDW Std Deviation 47.1 H (36.4-46.3) fL RDW Coeff of Catina 13.5 (11.5-14.5) % Plt Count 214 (130-400) K/uL MPV 9.2 (7.4-10.4) fL Sodium 139 138 (136-145) mmol/L Potassium 4.0 4.3 (3.5-5.1) mmol/L Chloride 108 H 107 (98-107) mmol/L Carbon Dioxide 24 27 (21-32) mmol/L Anion Gap 6.0 5.0 (3-11) BUN 20 H 22 H (7-18) mg/dl Creatinine 0.87 0.95 (0.6-1.4) mg/dl Est Cr Clr Drug Dosing 98.8 90.4 ml/min Est GFR ( Amer) 99.9 92.3 ml/min Est GFR (Non-Af Amer) 86.2 79.7 ml/min BUN/Creatinine Ratio 22.6 H 23.7 H (10-20) Glucose 103 H 122 H (70-99) mg/dl Calcium 8.6 7.6 L (8.5-10.1) mg/dl Phosphorus 2.0 L (2.5-4.9) mg/dl Magnesium 1.8 1.7 L (1.8-2.4) mg/dl Crossmatch 09/05/20 09/04/20 Range/Units 19:13 06:25 WBC 8.02 (4.8-10.8) K/uL RBC 3.50 L (4.7-6.1) M/uL Hgb 11.3 L (14.0-18.0) g/dL Hct 34.0 L (42-52) % MCV 97.1 (80-100) fL MCH 32.3 (25-34) pg MCHC 33.2 (32-36) g/dL RDW Std Deviation 47.6 H (36.4-46.3) fL RDW Coeff of Catina 13.5 (11.5-14.5) % Plt Count 217 (130-400) K/uL MPV 9.2 (7.4-10.4) fL Sodium (136-145) mmol/L Potassium (3.5-5.1) mmol/L Chloride (98-107) mmol/L Carbon Dioxide (21-32) mmol/L Anion Gap (3-11) BUN (7-18) mg/dl Creatinine (0.6-1.4) mg/dl Est Cr Clr Drug Dosing ml/min Est GFR ( Amer) ml/min Est GFR (Non-Af Amer) ml/min BUN/Creatinine Ratio (10-20) Glucose (70-99) mg/dl Calcium (8.5-10.1) mg/dl Phosphorus (2.5-4.9) mg/dl Magnesium (1.8-2.4) mg/dl Crossmatch See Detail Medications Administered Current Inpatient Medications Acetaminophen (Acetaminophen 500 Mg Tab) 1,000 mg PO Q8H PRN PRN Reason: MILD Pain Scale 1,2,3 & Pre PT Stop: 10/04/20 11:49 Al Hydrox/Mg Hydrox/Simethicone (Aluminum/Magnesium Susp 30 Ml Udc) 30 ml PO Q6H PRN PRN Reason: Dyspepsia Stop: 10/04/20 11:49 Aspirin (Aspirin 81 Mg Ectab) 81 mg PO MoWeFr@0900 [facility] Stop: 10/07/20 08:59 Atorvastatin Calcium (At[facility]vastatin 40 Mg Tab) [facility] Stop: 10/05/20 08:59 Last Admin: 09/05/20 08:41 Dose: 40 mg Documented by: Bisacodyl (Bisacodyl 10 Mg Supp) 10 mg [place] DAILY PRN PRN Reason: Constipation Stop: 10/06/20 09:49 Cyanocobalamin (Cyanocobalamin 500 Mcg Tablet (Vitamin B-12)) 1,000 [facility] Stop: 10/05/20 08:59 Last Admin: 09/05/20 08:42 Dose: 1,000 mcg Documented by: Diphenhydramine HCl (Diphenhydramine Capsule 25 Mg Cap) 25 mg PO Q6H PRN PRN Reason: Allergic Rhinitis/Insomnia Stop: 10/04/20 11:49 Famotidine (Famotidine 20 Mg Tab) 20 mg PO Q12H PRN PRN Reason: Dyspepsia Stop: 10/04/20 11:49 Finasteride (Finasteride 5 Mg Tab) [facility] Stop: 10/05/20 08:59 Last Admin: 09/05/20 08:42 Dose: 5 mg Documented by: Folic Acid (Folic Acid 1 Mg Tab) 1 mg PO QAM [facility] Stop: 10/05/20 08:59 Last Admin: 09/05/20 08:42 Dose: 1 mg Documented by: Hydromorphone HCl (Hydromorphone Inj 0.5 Mg/0.5 Ml Syr) 0.5 mg IV Q3H PRN PRN Reason: MOD pain (scale 4-6) & Pre PT Stop: 09/18/20 11:49 Hydromorphone HCl (Hydromorphone Inj 1 Mg/Ml Syringe) 1 mg IV Q3H PRN PRN Reason: severe pain (scale 7-10) Stop: 09/18/20 11:49 Hydroxyzine HCl (Hydroxyzine Hcl 25 Mg Tab) 25 mg PO Q8H PRN PRN Reason: Anxiety Stop: 10/04/20 11:49 Promethazine HCl 12.5 mg/ (Sodium Chloride) 50.5 mls @ 202 mls/hr IV Q6H PRN PRN Reason: Nausea &/or Vomiting Stop: 10/04/20 11:49 Lorazepam (Ativan) 0.5 mg in 1 mls @ 1 mls/min IV Q8H PRN PRN Reason: Sedation/Anxiety Stop: 10/04/20 11:49 Dexamethasone 8 mg/ Syringe 2 mls @ 1 mls/min IV DAILY [facility] Stop: 10/06/20 08:59 Sodium Phosphate 21 mmol/ (Sodium Chloride) 507 mls @ 88 mls/hr IV ONE ONE Stop: 09/06/20 13:00 Influenza Virus Vaccine Quadrival (Do Not Administer Flu Vaccine) 1 ea N/A PRN PRN PRN Reason: Notification Stop: 10/04/20 11:49 Lorazepam (Lorazepam 0.5 Mg Tab) 0.5 mg PO Q8H PRN PRN Reason: sedation/anxiety Stop: 10/04/20 11:49 Last Admin: 09/04/20 22:38 Dose: 0.5 mg Documented by: Magnesium Hydroxide (Magnesium Hydroxide Susp 30 Ml Udc) 30 ml PO Q24H PRN PRN Reason: Constipation Stop: 10/04/20 11:49 Metoclopramide HCl (Metoclopramide Hcl Inj 5 Mg/Ml 2 Ml Vial) 10 mg IV Q6H PRN PRN Reason: Nausea &/or Vomiting Stop: 10/04/20 11:49 Naloxone HCl (Naloxone Hcl 0.4 Mg/1 Ml Vial/Carp) 0.1 mg IV Q5M PRN PRN Reason: Oversedation/respiratory dep Stop: 10/04/20 11:49 Ondansetron HCl (Ondansetron Inj 2 Mg/Ml 2 Ml Vial) 4 mg IV Q6H PRN PRN Reason: Nausea &/or Vomiting Stop: 10/04/20 11:49 Ondansetron HCl (Ondansetron 4 Mg Od Tab) 4 mg PO Q6H PRN PRN Reason: Nausea Stop: 10/04/20 11:49 Oxycodone HCl (Oxycodone Hcl Ir 5 Mg Tab (Immediate Release)) 5 - 10 mg PO Q4H PRN PRN Reason: Pain & Pre PT Stop: 09/18/20 11:49 Last Admin: 09/05/20 16:30 Dose: 10 mg Documented by: Pantoprazole Sodium (Pantoprazole 40 Mg Tab) [facility] Protocol Stop: 10/05/20 08:59 Last Admin: 09/05/20 08:41 Dose: 40 mg Documented by: Pneumococcal Polyvalent Vaccine (Do Not Administer Pneumococcal Vaccine) 1 ea N/A PRN PRN PRN Reason: Notification Stop: 10/04/20 11:49 Polyethylene Glycol (Polyethylene (Miralax) 17 Gm Pack) 17 gm PO Q6 [facility] Stop: 10/05/20 05:59 Last Admin: 09/06/20 05:35 Dose: 17 gm Documented by: Senna/Docusate Sodium (Docusate Sodium/Senna 50/8.6mg Tab) 2 tab PO HS [facility] Stop: 10/04/20 20:59 Last Admin: 09/05/20 20:26 Dose: 2 tab Documented by: Sodium Biphosphate/Sodium Phosphate (Sod Phosphate/Sod Biphosphate Enema 132 Ml Btl) 132 ml [place] ONE PRN PRN Reason: Constipation Stop: 10/04/20 11:49 Tramadol HCl (Tramadol Hcl 50 Mg Tablet) 50 - 100 mg PO Q4H PRN PRN Reason: Moderate-Severe pain & Pre PT Stop: 10/04/20 11:49 Last Admin: 09/06/20 05:38 Dose: 100 mg Documented by: Vitamin D (Cholecalciferol 1,000 Units 25 Mcg Tab) 1,000 units PO QAM [facility] Stop: 10/05/20 08:59 Last Admin: 09/05/20 08:41 Dose: 1,000 units Documented by:
[2020-09-06] MEDS ORDERED: SODIUM PHOSPHATE 21 MMOL in SODIUM CHLORIDE 0.9% 500 ML IV ONE (07:15)
--- NOTE | 2020-09-06 08:25 | Orthopedic Progress Note ---
Date of Service September 06, 2020 Assessment & Plan (1) Neurogenic 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 spinal stenosis: Patient about confusion last night resulting in removal of his HENRRY drain. We will continue to monitor for any signs of hematoma. We will continue with GI DVT prophylaxis and pain control measures. We will try to minimize the use of narcotics to reduce the risk of confusion. We will mobilize him with physical therapy today. We will see how he does over the next 24 hours and possible discharge home tomorrow if all goes well. Admission and Anticipated Discharge Date Admission Date: September 04, 2020 Subjective Patient was seen bedside in room 312. Apparently last night he had a bout of confusion. He gotten up and out of bed accidentally pulling out his HENRRY drain. He was confused brought back to the room and passed on the chair. Medicine was called he was given a bolus of IV fluid. The rest of the night was uneventful. This morning he is alert and oriented. He has a moderate amount of pain mostly incisional no symptoms going down the legs. He denies any other numbness, tingling, or paresthesias. Physical Exam Physical Exam: On exam he is alert and oriented. He answers questions appropriately. He is able to move all extremities to gravity. His dressing is clean dry and intact. His calves are supple nontender his abdomen supple nontender. Results & Data ([facility]) Vital Signs (Past 12 Hours) Vital Signs Temp Pulse Resp BP BP Pulse Ox 09/06/20 07:34 37.1 C 96 H 16 102/63 92 09/05/20 22:01 36.9 C 88 18 99/54 L 97
[2020-09-06] MEDS: FOLIC ACID 1 MG TAB PO SCH (09:44)
[2020-09-06] MEDS: dexAMETHasone 8 MG in SYRINGE 0 ML IV SCH (09:45)
[2020-09-06] MEDS: ATORVASTATIN 40 MG TAB PO SCH (09:45)
[2020-09-06] MEDS: CHOLECALCIFEROL 1,000 UNITS 25 MCG TAB PO SCH (09:45)
[2020-09-06] MEDS: CYANOCOBALAMIN 500 MCG TABLET (VITAMIN B-12) PO SCH (09:45)
[2020-09-06] MEDS: PANTOprazole 40 MG TAB PO SCH (09:45)
[2020-09-06] MEDS: FINASTERIDE 5 MG TAB PO SCH (09:46)
[2020-09-06] MEDS ORDERED: bisacodyL 10 MG SUPP PR PRN (09:50)
--- NOTE | 2020-09-06 09:54 | Electrocardiogram Report ---
Test Reason : Blood Pressure : / mmHG Vent. Rate : 091 BPM Atrial Rate : 091 BPM P-R Int : 140 ms QRS Dur : 098 ms QT Int : 356 ms P-R-T Axes : 052 -26 023 degrees QTc Int : 437 ms Normal sinus rhythm with sinus arrhythmia Normal ECG When compared with ECG of 21-AUG-2020 11:24, Left anterior fascicular block is no longer Present Confirmed by Vaibhav Armas ([id number]) on 09/06/2020 9:53:48 AM Referred By: Alex Ron Confirmed By:Vaibhav Armas
[2020-09-06] MEDS: DOCUSATE SODIUM/SENNA 50/8.6MG TAB PO SCH (19:54)
[2020-09-07] MEDS: POLYETHYLENE (MIRALAX) 17 GM PACK PO SCH ×3 (00:52→12:19)
[2020-09-07] MEDS: traMADol HCL 50 MG TABLET PO PRN (02:03)
[2020-09-07 06:05] LABS: Hematocrit (blood only) 34.2 % (42-52); Hemoglobin 11.8 g/dL (14.0-18.0)
[2020-09-07 06:46] LABS: BUN Creatinine Ratio 20.7 (10-20); Calcium 8.1 mg/dl (8.5-10.1); Creatinine Clr Calc Pharmacy 108.8 ml/min; Est GFR (Non-African American) 89.7 ml/min; Potassium 3.7 mmol/L (3.5-5.1)
--- NOTE | 2020-09-07 07:50 | Hospitalist Progress Note ---
Date of Service September 07, 2020 Assessment & Plan (1) S/P spinal surgery: This is a 70yo M with PMH of TIAs, GERD, obstructive sleep apnea on CPAP, hyperlipidemia, BPH and other medical problems below who is POD#0 s/p lumbar decompression with bilateral medial facetectomies and foraminotomies L2-3, L3-4 and L4-5 and posterior spinal fusion L3-4 L4-[address] Ron. S/p lumbar decompression with bilateral medial facetectomies and foraminotomies L2-3, L3-4 and L4-5 and posterior spinal fusion L3-4 L4-[address] Ron Per ortho for pain control, wound care, anticoagulation and activities Monitor H&H (pre-op hgb 15.3) Continue incentive spirometry, PT/OT when appropriate Mild acute blood loss anemia, postop, dilutional Current hemoglobin 11.8 stable from previous (preop 15.3) Expected, no need for blood transfusion, continue to monitor H&H (2) Transient ischemic attack (TIA): History of TIAs in 2013 Continue aspirin, statin Recommend resuming Plavix as soon as appropriate in post-op setting, per Dr. Ron (3) Sleep apnea: CPAP HS (4) Hyperlipidemia: Continue statin (5) BPH (benign prostatic hyperplasia): Continue Proscar Bladder scan PRN (6) GERD (gastroesophageal reflux disease): Continue PPI PCP: Dr. Hooks ([place]) Dispo: Per ortho Thank you for this consultation. We will follow the patient with you during their hospital stay. You can reach a member of the [facility]10 via [employer]. Admission and Anticipated Discharge Date Admission Date: September 04, 2020 Subjective Patient seen in follow-up postop spinal surgery Currently laying in bed in NAD Walked w/ PT earlier this AM Denies any chest pain, shortness of breath, abdominal pain, nausea or vomiting Eating well, voiding, passing gas but no bowel movement yet. Review of Systems Review of Systems: All systems reviewed & are unremarkable except as noted in HPI & below Constitutional: no fever and no chills Respiratory: no cough and no dyspnea Cardiovascular: no chest pain and no palpitations Gastrointestinal: no abdominal pain, no nausea and no vomiting Physical Exam Physical Exam: General Appearance: WD/WN, vitals as above, NAD, sitting up in bed, pleasant, conversing easily Head: normocephalic, atraumatic Eyes: normal inspection, PERRL, conjunctivae normal, anicteric sclerae ENT: external ear and nose normal, oropharynx normal Neck: normal visual inspection, trachea midline, no thyromegaly Respiratory: normal respiratory effort, lungs clear to auscultation, no wheeze, rales, rhonchi. No accessory muscle use Cardiovascular: regular rate, rhythm, no murmur, normal peripheral pulses, no BLE edema Abdomen/GI: normal bowel sounds, soft, nontender : Bo removed (09/05) Extremities/Musculoskeletal: +Lumbar surgical dressing c/d/i. (HENRRY drain removed accidentally by the pt). No cyanosis or clubbing, extremities motor strength 5/5 Neurologic: PERRL, EOMI, no facial asymmetry, speech fluent, moves all extremities Psychiatric: A+Ox3, euthymic affect Skin: no rashes, normal color, warm/dry Results & Data Results & Data ([facility]) Vital Signs (Past 12 Hours) Vital Signs Temp Pulse Resp BP Pulse Ox 09/07/20 06:12 36.7 C 94 H 16 131/77 93 09/06/20 22:55 36.9 C 94 H 16 123/77 94 Laboratory Results 09/07/20 09/07/20 Range/Units 05:50 05:50 Hgb 11.8 L (14.0-18.0) g/dL Hct 34.2 L (42-52) % Sodium 140 (136-145) mmol/L Potassium 3.7 (3.5-5.1) mmol/L Chloride 108 H (98-107) mmol/L Carbon Dioxide 26 (21-32) mmol/L Anion Gap 6.0 (3-11) BUN 16 (7-18) mg/dl Creatinine 0.79 (0.6-1.4) mg/dl Est Cr Clr Drug Dosing 108.8 ml/min Est GFR ( Amer) 104.0 ml/min Est GFR (Non-Af Amer) 89.7 ml/min BUN/Creatinine Ratio 20.7 H (10-20) Glucose 115 H (70-99) mg/dl Calcium 8.1 L (8.5-10.1) mg/dl Magnesium 2.0 (1.8-2.4) mg/dl Medications Administered Current Inpatient Medications Acetaminophen (Acetaminophen 500 Mg Tab) 1,000 mg PO Q8H PRN PRN Reason: MILD Pain Scale 1,2,3 & Pre PT Stop: 10/04/20 11:49 Al Hydrox/Mg Hydrox/Simethicone (Aluminum/Magnesium Susp 30 Ml Udc) 30 ml PO Q6H PRN PRN Reason: Dyspepsia Stop: 10/04/20 11:49 Aspirin (Aspirin 81 Mg Ectab) 81 mg PO [id number] [facility] Stop: 10/07/20 08:59 Atorvastatin Calcium (Atorvastatin 40 Mg Tab) 40 mg PO [facility] Stop: 10/05/20 08:59 Last Admin: 09/06/20 09:45 Dose: 40 mg Documented by: Bisacodyl (Bisacodyl 10 Mg Supp) 10 mg [place] DAILY PRN PRN Reason: Constipation Stop: 10/06/20 09:49 Cyanocobalamin (Cyanocobalamin 500 Mcg Tablet (Vitamin B-12)) 1,000 mcg PO [facility] Stop: 10/05/20 08:59 Last Admin: 09/06/20 09:45 Dose: 1,000 mcg Documented by: Diphenhydramine HCl (Diphenhydramine Capsule 25 Mg Cap) 25 mg PO Q6H PRN PRN Reason: Allergic Rhinitis/Insomnia Stop: 10/04/20 11:49 Famotidine (Famotidine 20 Mg Tab) 20 mg PO Q12H PRN PRN Reason: Dyspepsia Stop: 10/04/20 11:49 Finasteride (Finasteride 5 Mg Tab) 5 mg PO [facility] Stop: 10/05/20 08:59 Last Admin: 09/06/20 09:46 Dose: 5 mg Documented by: Folic Acid (Folic Acid 1 Mg Tab) 1 mg PO [facility] Stop: 10/05/20 08:59 Last Admin: 09/06/20 09:44 Dose: 1 mg Documented by: Hydromorphone HCl (Hydromorphone Inj 0.5 Mg/0.5 Ml Syr) 0.5 mg IV Q3H PRN PRN Reason: MOD pain (scale 4-6) & Pre PT Stop: 09/18/20 11:49 Hydromorphone HCl (Hydromorphone Inj 1 Mg/Ml Syringe) 1 mg IV Q3H PRN PRN Reason: severe pain (scale 7-10) Stop: 09/18/20 11:49 Hydroxyzine HCl (Hydroxyzine Hcl 25 Mg Tab) 25 mg PO Q8H PRN PRN Reason: Anxiety Stop: 10/04/20 11:49 Promethazine HCl 12.5 mg/ (Sodium Chloride) 50.5 mls @ 202 mls/hr IV Q6H PRN PRN Reason: Nausea &/or Vomiting Stop: 10/04/20 11:49 Lorazepam (Ativan) 0.5 mg in 1 mls @ 1 mls/min IV Q8H PRN PRN Reason: Sedation/Anxiety Stop: 10/04/20 11:49 Dexamethasone 8 mg/ Syringe 2 mls @ 1 mls/min IV DAILY [place] Stop: 10/06/20 08:59 Last Admin: 09/06/20 09:45 Dose: 1 mls/min Documented by: Influenza Virus Vaccine Quadrival (Do Not Administer Flu Vaccine) 1 ea N/A PRN PRN PRN Reason: Notification Stop: 10/04/20 11:49 Lorazepam (Lorazepam 0.5 Mg Tab) 0.5 mg PO Q8H PRN PRN Reason: sedation/anxiety Stop: 10/04/20 11:49 Last Admin: 09/04/20 22:38 Dose: 0.5 mg Documented by: Magnesium Hydroxide (Magnesium Hydroxide Susp 30 Ml Udc) 30 ml PO Q24H PRN PRN Reason: Constipation Stop: 10/04/20 11:49 Metoclopramide HCl (Metoclopramide Hcl Inj 5 Mg/Ml 2 Ml Vial) 10 mg IV Q6H PRN PRN Reason: Nausea &/or Vomiting Stop: 10/04/20 11:49 Naloxone HCl (Naloxone Hcl 0.4 Mg/1 Ml Vial/Carp) 0.1 mg IV Q5M PRN PRN Reason: Oversedation/respiratory dep Stop: 10/04/20 11:49 Ondansetron HCl (Ondansetron Inj 2 Mg/Ml 2 Ml Vial) 4 mg IV Q6H PRN PRN Reason: Nausea &/or Vomiting Stop: 10/04/20 11:49 Ondansetron HCl (Ondansetron 4 Mg Od Tab) 4 mg PO Q6H PRN PRN Reason: Nausea Stop: 10/04/20 11:49 Oxycodone HCl (Oxycodone Hcl Ir 5 Mg Tab (Immediate Release)) 5 - 10 mg PO Q4H PRN PRN Reason: Pain & Pre PT Stop: 09/18/20 11:49 Last Admin: 09/05/20 16:30 Dose: 10 mg Documented by: Pantoprazole Sodium (Pantoprazole 40 Mg Tab) 40 mg PO QAM [facility]; Protocol Stop: 10/05/20 08:59 Last Admin: 09/06/20 09:45 Dose: 40 mg Documented by: Pneumococcal Polyvalent Vaccine (Do Not Administer Pneumococcal Vaccine) 1 ea N/A PRN PRN PRN Reason: Notification Stop: 10/04/20 11:49 Polyethylene Glycol (Polyethylene (Miralax) 17 Gm Pack) 17 gm PO Q6 [place] Stop: 10/05/20 05:59 Last Admin: 09/07/20 05:56 Dose: 17 gm Documented by: Potassium Chloride (Potassium Chloride Crtab 20 Meq Tabcr) 20 meq PO NOW STA Stop: 09/07/20 07:49 Senna/Docusate Sodium (Docusate Sodium/Senna 50/8.6mg Tab) 2 tab PO HS [place] Stop: 10/04/20 20:59 Last Admin: 09/06/20 19:54 Dose: 2 tab Documented by: Sodium Biphosphate/Sodium Phosphate (Sod Phosphate/Sod Biphosphate Enema 132 Ml Btl) 132 ml [place] ONE PRN PRN Reason: Constipation Stop: 10/04/20 11:49 Tramadol HCl (Tramadol Hcl 50 Mg Tablet) 50 - 100 mg PO Q4H PRN PRN Reason: Moderate-Severe pain & Pre PT Stop: 10/04/20 11:49 Last Admin: 09/07/20 02:03 Dose: 100 mg Documented by: Vitamin D (Cholecalciferol 1,000 Units 25 Mcg Tab) 1,000 units PO QAM [facility] Stop: 10/05/20 08:59 Last Admin: 09/06/20 09:45 Dose: 1,000 units Documented by:
[2020-09-07] MEDS: ATORVASTATIN 40 MG TAB PO SCH (08:07)
[2020-09-07] MEDS: FINASTERIDE 5 MG TAB PO SCH (08:08)
[2020-09-07] MEDS: PANTOprazole 40 MG TAB PO SCH (08:08)
[2020-09-07] MEDS: FOLIC ACID 1 MG TAB PO SCH (08:08)
[2020-09-07] MEDS: CHOLECALCIFEROL 1,000 UNITS 25 MCG TAB PO SCH (08:08)
[2020-09-07] MEDS: CYANOCOBALAMIN 500 MCG TABLET (VITAMIN B-12) PO SCH (08:08)
[2020-09-07] MEDS: dexAMETHasone 8 MG in SYRINGE 0 ML IV SCH (08:09)
[2020-09-07] MEDS ORDERED: POTASSIUM CHLORIDE CRTAB 20 MEQ TABCR PO ONE (08:15)
[2020-09-07] MEDS ORDERED: ASPIRIN 81 MG ECTAB PO SCH (09:00)
[2020-09-07] MEDS ORDERED: POTASSIUM CHLORIDE CRTAB 20 MEQ TABCR PO SCH (10:45)
--- NOTE | 2020-09-07 12:20 | Discharge Summary ---
Date of Service September 07, 2020 Admission HPI Per Admitting Provider This is a 70-year-old male who presents with chronic persistent back and leg pain. Failing course of nonoperative care is here for surgical intervention. Principal Diagnosis Lumbar spinal stenosis with neurogenic claudication Discharge Data Allergies Allergy/AdvReac Type Severity Reaction Status Date / Time No Known Drug Allergies Allergy Verified 09/04/20 06:56 Consultations 09/04/20 11:50 Consult Hospitalist Routine Procedures Performed Operation Date: 09/04/20 07:45 Actual Procedures p L3-L5 Decompression and Fusion, Spinal Cord Monitoring, Interbody at L3-L4 and L4-L5(Not Applicable) - Alex Ron DO Ordered Studies 09/04/20 07:45 FL lumbar spine 2-3V Routine Hospital Course (1) Neurogenic 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 spinal stenosis: Patient with limiting present fusion trial exhausting orthopedic for possibly. Postop day #1 is up and ambulating beers postop day #2 on postop day 3 pain is well controlled HENRRY drain decreased appropriately. Excellent strength testing. Subsequent discharge home. Discharge orders instructions from the chart for further review. Total Time Total Time Spent Total Time Spent (In Minutes): 20 minutes Discharge Plan Discharge Items Patient Disposition: Home - Self-Care Reason For Visit: Spinal Stenosis, Lumbar Region with Neurogenic Discharge Diagnosis: Lumbar spinal stenosis with neurogenic claudication Activity: As commented below Non-emergency contact: Primary Care Provider Call non-emergency contact if: you have any medication questions Follow-up/Referrals: Jessee Bello DO [Primary Care Provider] - Diet: Regular Addtl Attending Provider Instructions: ACTIVITY RECOMMENDATIONS: SELF CARE INSTRUCTIONS AFTER THORACIC/LUMBAR FUSIONS 1. You may walk to your tolerance. It is good exercise for your legs and back. Expect some back and intermittent leg aches and pains. 2. You may perform "counter-top" level activities (make a sandwich, vincent with a project, etc.). 3. No bending or lifting of more than 10 pounds or back twisting of any nature (roll like a log when turning in bed). 4. You may ride in a car for 20-30 minutes at a time. No driving until after your first visit with your doctor. 5. Frequent changes of position and restricting sitting to 30 minutes at a time will help limit the amount of back spasms and stiffness you may experience. 6. You may discontinue the use of ambulatory aids (cane, crutches, etc.) once your strength and confidence allow. 7. You may copper roller handler printing the shower and let water strike your incision when you arrive home at least once daily. Do not take a tub bath, sit in a hot tub or go into a swimming pool until after your first recheck in the office. SPECIAL CARE INSTRUCTIONS: VERY IMPORTANT TO READ AND REVIEW A. Your surgical incision has been closed with a cosmetic suture under the skin that will dissolve in about 6 weeks. In 14 days, you can use a pair of clean scissors and cut the suture that is left outside of the skin at the ends of your incision. 1. The small skin tapes can be removed 7 days after surgery if they have not fallen off by that point. 2. You may keep the wound open to air as much as possible to promote healing after post-op day number 5 unless told otherwise by your doctor. 3. If you think the wound looks like it is becoming infected (redness or worsening drainage) and/or you are experiencing fever, chill or worsening back pain and muscle spasms, contact the office so that we may evaluate you as soon as possible. B. Complications are uncommon, but please contact us if you have any signs or symptoms of: 1. wound infection (fever higher than 102.5 degrees F, redness, separation of wound, drainage, or increasing pain from the incision) 2. blood clots in legs (pain, swelling, redness and warmth in legs) 3. urinary tract infection (fever higher than 102.5 degrees F, burning upon urination or increased frequency of urination) 4. nerve problems (inability to walk on your toes or heels, numbness, loss of bowel or bladder control) 5. any other symptoms that concern you C. Please call the office at if you have any concerns or questions about your operation or recovery. D. No smoking! Smoking drastically decreases the chance of a solid fusion. E. Do not take any anti-inflammatory medications (Indocin, Advil, Motrin, Aspirin, Naprosyn, etc.) as these may inhibit the chance of a solid fusion. Tylenol is okay to take for pain. MANAGING PAIN AFTER SPINAL SURGERY 1. Narcotic medication is intended for short-term use and will be provided for surgical pain. Surgical pain usually lasts for a period of 4-6 weeks. Narcotic medication includes Percocet, Vicodin, Darvocet, Tylenol #3 or Lortab. 2. Longer-term pain is more appropriately treated with non-narcotic medication such as Tylenol ES. 3. Muscle spasm is not appropriately treated with narcotics. Muscle relaxers such as Soma, Flexeril or Skelaxin can be used along with Tylenol ES. 4. Remember that we all live with some "aches and pains". This is not unusual or uncommon after an injury or as we get older. a. Back pain is expected and may include muscle spasms for 4 to 6 weeks after surgery. The pain should gradually improve. If the pain worsens for no apparent reason, please contact the office. b. Intermittent leg pain may also be experienced and should not be concerned about unless it worsens for no apparent reason. If so, please contact the office. 5. We will provide appropriate medication within the normal guidelines of their prescribed use. We will also be very cautious and aware of potential abuse and extended duration of patients' medication needs. a. Pain medications are for your comfort and to assist with sleep and rest so that the tissue can heal. They are not provided in order to return to normal activity and should not be used through the day. To do so or worsening pain at night can result from ongoing tissue damage and development of tolerance to the prescribed medicine. 6. Please allow 2-3 days to process refills. Prescriptions will not be mailed but must be picked up at the office. FOLLOW UP VISIT: Keep your scheduled follow-up appointment. Any questions, please call the office at . Pending Studies at Discharge: No Stand-Alone Forms: [facility], Sm[facility] Cess[facility] Medications and DC Order Prescriptions: New tramadol 50 mg tablet 50 mg PO Q6H PRN (Reason: pain, moderate) Qty: 30 RF: 0 Continued atorvastatin [Lipitor] 40 mg Tablet 40 mg PO QAM RF: 0 cyanocobalamin (vitamin B-12) [Vitamin B-12] 1,000 mcg Tablet 1,000 mcg PO QAM RF: 0 clopidogrel [Plavix] 75 mg Tablet 75 mg PO QAM RF: 0 omeprazole 40 mg Capsule,Delayed Release(Dr/Ec) 40 mg PO QAM RF: 0 aspirin 81 mg Tablet,Delayed Release (Dr/Ec) 81 mg PO UD RF: 0 folic acid 1 mg Tablet 1 mg PO QAM RF: 0 finasteride [Proscar] 5 mg Tablet 5 mg PO QAM RF: 0 cholecalciferol (vitamin D3) 25 mcg (1,000 unit) Tablet 25 mcg PO QAM RF: 0 Discharge Orders: Discharge Order (Routine); Ordered 09/07/20 Ordered By: Alex Ron Admission Data Admit Date/Time: 09/04/20 11:50 Attending Provider: Alex Ron Admit Provider: Alex Ron Primary Care Provider: Jessee Bello Other Providers: Juan M Avila Other Interventions: Discharge Summary Assessment (RN) Last Done: 09/07/20 12:16
== END 2020-09-07 13:59 | disposition home health service (06) | DRG 455 ==
LOC: ASU 06:08 → 3E 11:50

== ENCOUNTER 2024-10-29 14:03 | Inpatient (IN) ==
[2024-10-29 14:57] LABS: Hematocrit (blood only) 35.2 % (42.0-52.0); Hemoglobin 11.6 g/dl (14.0-18.0); Immature Granulocytes # (auto) 0.04 K/uL (0.01-0.20); Immature Granulocytes % (auto) 0.4 %; Mean Corpuscular Hemoglobin 29.7 pg (25.0-34.0); Mean Corpuscular Volume 90.3 fL (80.0-100.0); Platelet Count 282 K/uL (130-400); RDW Standard Deviation 47.7 fL (36.4-46.3); Red Blood Count 3.90 M/uL (4.70-6.10); White Blood Count 9.03 K/ul (4.8-10.8)
[2024-10-29 15:15] LABS: Alanine Aminotransferase 8 U/L (7-52); Albumin Globulin Ratio 1.2 (0.9-2); Alkaline Phosphatase 70 U/L (34-104); Anion Gap 8 (3-11); Bilirubin,Total 0.5 mg/dl (0.2-1.0); Blood Urea Nitrogen 30 mg/dl (6-23); Calcium 9.2 mg/dl (8.6-10.3); Carbon Dioxide 24 mmol/L (21-32); Chloride 104 mmol/L (98-107); Globulin 2.9 gm/dl (2.5-4.0); Glucose 108 mg/dl (70-99(Fasting)); Lipase 11 U/L (11-82); Potassium 4.9 mmol/L (3.5-5.1); Sodium 136 mmol/L (136-145); Total Protein 6.5 gm/dl (6.0-8.3)
[2024-10-29 15:23] LABS: Appearance Urine Turbid (Clear); Bacteria Urine Automated None Seen (None Seen); Cast Urine Automated 0-2 /lpf (0-2); Epithelial Cell Urine Auto 0-2 /hpf (0-2); Glucose Urine UA Negative (Negative); RBC Urine Automated >20 /hpf (0-2); WBC Urine Automated >50 /hpf (0-5)
[2024-10-29 15:23] LABS: INR 0.9 (0.9-1.1); Partial Thromboplastin Time 26 Seconds (21-31); Prothrombin Time 10.3 Seconds (9.0-12.0)
--- NOTE | 2024-10-29 16:39 | Emergency Department Note ---
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 Patient is accompanied by his who provide additional history. they report he is due to start chemo. Patient has been struggling with ureteral stents in place. He states his hydronephrosis continues to worsen. He is trying to get set up of [facility] for percutaneous nephrostomy tubes. Patient notes that he passing large clots and blood today. Patient reports some suprapubic pain. Patient does report that he takes Plavix daily. They deny fever or chills. No cough or congestion. Denies chest pain or palpitations. No shortness of breath. They deny abdominal pain, nausea and vomiting. No recent changes in bowel movements. Patient denies recent changes in medications or OTC supplements. Patient offers no other complaints, today. ADDITIONAL HISTORY OBTAINED: Per HPI Chronic Medical/Social Conditions Affecting Care: Per HPI PAST MEDICAL HISTORY: See Below PAST SURGICAL HISTORY: See Below FAMILY HISTORY: See Below SOCIAL HISTORY: See Below HOME MEDICATIONS: See Below ALLERGIES: See Below VITALS: See Below PHYSICAL EXAMINATION: GENERAL: Sitting up in bed, alert, ill appearing, well nourished, no distress, non-toxic EYE EXAM: conjunctival pallor.PERRL and EOM's grossly intact. OROPHARYNX: no exudate, no erythema, lips, buccal mucosa, and tongue normal and mucous membranes are moist NECK: supple, no nuchal rigidity, no adenopathy, non-tender LUNGS: Clear to auscultation. Normal chest wall mechanics HEART: no murmurs, Tachycardic rate, regular rhythm ABDOMEN: abdomen soft, tenderness to palpation suprapubic regionr, no masses, no rebound or guarding. BACK: Back is symmetrical on inspection and there is no deformity, no midline tenderness, no CVA tenderness. SKIN: no rashes and no bruising UPPER EXTREMITIES: upper extremities are grossly normal. LOWER EXTREMITIES: No pitting edema. NEURO EXAM: Normal sensorium, GCS 15, normal speech, no gross weakness of arms, no gross weakness of legs. MEDICAL DECISION MAKING: Differential diagnoses includes but not limited to gross hematuria, malignancy, complicated UTI, pyelonephritis, hydronephrosis, acute anemia, electrolyte derangements, kidney dysfunction In summary, this is a 74 year old male who presented with worsening kidney function as an outpatient. Differential as above. Nursing notes and pertinent past medical records reviewed. Vital signs reviewed and the patient is tachycardic but otherwise afebrile and hemodynamically stable. History and presentation revealed complex past medical history with urothelial cell carcinoma with significant hydronephrosis secondary to his malignancy. Patient does have ureteral stenting in place. Patient is being evaluated for PCNs as an outpatient but now presents with gross hematuria. Given his complex urologic history, I would be concern for possible UTI. I reviewed outpatient urology notes. It is unclear if the urology team was going to attempt right ureteral stenting again but that seems to be dictated within her note. The patient is trying to get set up for PCNs at [facility] but this is a nonurgent procedure. I did discuss with the patient that I will touch base with his urologist given his symptoms today. Patient is concerned about his chemo that is supposed to start within the coming days. Physical examination revealed General He appears ill and pale. He does have suprapubic tenderness to palpation. Some blood noted at the penis. Do suspect he likely has gross hematuria from his cancer but could be related to a complicated UTI. Will likely recheck his CT for further evaluation of his hydronephrosis as well as his malignancy. Plan for labs as well as urinalysis. I did have a prolonged discussion regarding placement of a urethral catheter with the patient. He is very hesitant and would like to hold off for now. Diagnostics interpreted by me include EKG and cardiac monitoring as listed below: -Cardiac Monitoring: An order was placed for continuous cardiac monitoring. The monitor shows a rate of 80-110s with regular rhythm. -ECG: EKG independently interpreted ny me reveals sinus tachycardia at a rate of [address] segment changes suggest STEMI. Left anterior fascicular block present. Intervals are otherwise within normal limits. Patient completed laboratory studies and imaging. labs show no significant leukocytosis. He does have mild anemia. Kidney function has continued to worsen. ALESIA present. No significant electrolyte derangements. Patient's urinalysis shows large amount of blood. There is a significant amount of pyuria. This is leukocyte esterase as well as nitrite positive. Given his foreign objects within his urinary symptoms including ureteral stenting, as well as the gross hematuria, I am concerned that he could possibly have a UTI. He was started on IV ceftriaxone. I again had prolonged conversations with the patient as well as his at the bedside. I did recommend placement of Bo catheter. He was finally agreeable. Patient was given IV fentanyl for pain control as well as Uro-Jet. Patient had hand irrigation and showed a pale red urine after irrigation. Do not feel that continuous bladder irrigation was necessary at this time. Patient had a CT abdomen/pelvis that was independently interpreted by me as significant mural thickening of the bladder. Likely from his malignancy but could be blood clot as well. The patient will require admission. I did discuss with on-call urology regarding his case. They again did not recommend transfer as he has been on anticoagulation/antiplatelets and this is not an urgent procedure to have PCNs in place. They are agreeable for admission at the hospital. Family is also agreeable to this plan. Ultimately, the decision was made to admit the patient for gross hematuria with extensive urological history in the setting of an ALESIA and possible complicated UTI. I discussed the case with the hospitalist service via telephone/Tiger[employer] and they are agreeable to admit the patient to their services. Based on the above, including the patient's age, coexisting illnesses, labs, imaging, and exam findings the decision to treat as an inpatient. I discussed the patient with the hospitalist team who recommended admission to their services. They received the medications, treatments, interventions indicated above and their condition remained stable. I discussed my findings with the patient and their family and they understand and agree with the treatment plan. All patient / family questions were answered to their satisfaction. Consults/Care Managements Discussions: Per [facility] ER treatment provided: See above Procedures:none Critical Care: None The chart was completed utilizing [employer] Speech voice recognition software. Grammatical errors, random word insertions, pronoun errors, and incomplete sentences are an occasional consequence of this system due to software limitations, ambient noise, and hardware issues. Any formal questions or concerns about the content, text, or information contained within the body of this dictation should be directly addressed to the physician for clarification. Past Med/Surg History Problem List (Updated 11/01/24 @ 19:40 by Warner Borjas DO) Diarrhea Gross hematuria (Acute) Iron deficiency anemia Acute kidney injury (Acute) Hydronephrosis (Acute) Urothelial carcinoma of bladder (Acute) History of bladder cancer Neurogenic 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 spinal stenosis BPH (benign prostatic hyperplasia) GERD (gastroesophageal reflux disease) controlled Hyperlipidemia Sleep apnea CPAP Transient ischemic attack (TIA) x2 (2015)- on plavix Medical History Hydronephrosis creat worsening; pt saw urology and had procedure 10/22/24 Anemia heme/onc following On anticoagulant therapy Hx of motion sickness PONV (postoperative nausea and vomiting) Prostate cancer dx in 2021 - monitoring, no treatment Bladder cancer initially dx 2021,s/p TURBT; now with metastatic urothelial carcinoma: currently undergoing chemo tx History of COVID-2019 - no hospitalization Hyperlipidemia Hx of deep venous thrombosis remote hx, prior to 1999 (s/p surgery) - no issues since treated with anticoagulant. History of TIA (transient ischemic attack) x2 (2015)- on plavix BPH (benign prostatic hyperplasia) Sleep apnea cpap GERD (gastroesophageal reflux disease) Spinal stenosis Hiatal hernia Surgical History H/O insertion of central venous access port (10/24/24) Insertion of Access Port with Fluoroscopy(Left) - Sky Mojica DO History of cystoscopy 10/22/24; 'no major complications' per anesthesia progress note S/P trigger finger release S/P cataract extraction S/P ureteral stent placement left (early august 2024) H/O transurethral resection of bladder tumor (TURBT) August 2024 S/P spinal surgery L3/[address] 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) History of arthroscopy R/L rotator cuff repairs (Rx1, Lx2) History of herniorrhaphy Right inguinal Status post repair of hydrocele History of esophagogastroduodenoscopy (EGD) History of colonoscopy Family History Father Cancer Sister Cancer Other Hypertension No family history of adverse response to anesthesia Social History Smoking Status: Never smoker Second Hand Exposure: No; Do You Dip or Chew Tobacco: No; Hx Alcohol Use: No Hx Substance Use: No Preferred Language: Hong Konger Communication Ability: Effective Technical Sales Director Required: No Beliefs That Will Affect Care: Spiritual marital status: Current Living Situation: Spouse and Family Current Living Situation Comment: home with and grandson current occupational status: retired How many Children do You have: 1 Feels Safe at Home: Yes during the past year weight has: remained stable Assistive Devices: Cane and CPAP Allergies Allergies Allergy/AdvReac Type Severity Reaction Status Date / Time No Known Drug Allergies Allergy Verified 10/29/24 12:56 Home Meds Home Medications Medication Instructions Recorded Confirmed aspirin 81 mg tablet,delayed 81 mg PO UD 08/20/20 10/29/24 release atorvastatin 40 mg tablet (Lipitor) 40 mg PO HS 08/20/20 10/29/24 cholecalciferol (vitamin D3) 25 25 mcg PO HS 08/20/20 10/29/24 mcg (1,000 unit) tablet clopidogrel 75 mg tablet (Plavix) 75 mg PO QAM 08/20/20 10/29/24 cyanocobalamin (vitamin B-12) 1,000 mcg PO QPM 08/20/20 10/29/24 1,000 mcg tablet (Vitamin B-12) folic acid 1 mg tablet 1 mg PO QPM 08/20/20 10/29/24 omeprazole 40 mg capsule,delayed 40 mg PO QAM 08/20/20 10/29/24 release tamsulosin 0.4 mg capsule 0.8 mg PO HS 08/21/24 10/29/24 ferrous sulfate 325 mg (65 mg 325 mg PO 3XWK 10/14/24 10/29/24 iron) tablet (FeroSul) calcium carbonate 500 mg PO HS 10/15/24 10/29/24 magnesium aspart,citrate,oxide 400 mg PO HS 10/15/24 10/29/24 loperamide 2 mg capsule 2 mg PO BID PRN Loose Stool 10/29/24 10/29/24 vibegron 75 mg tablet 0 mg PO DAILY 10/29/24 10/29/24 Previous Rx's Medication Instructions Recorded escitalopram oxalate 10 mg tablet 10 mg PO QAM #7 tabs 10/31/24 oxybutynin chloride 5 mg 5 mg PO QAM #10 tabs 10/31/24 tablet,extended release 24 hr Results & Data (ED) Vital Signs Vital Signs - 24 hr 10/29/24 14:21 10/29/24 15:00 10/29/24 16:00 Temperature 36.6 C Temperature Source Temporal Artery Scan Pulse Rate 119 H 119 H 91 H Pulse Rate from SpO2 Sensor 92 H Pulse Rhythm Regular Respiratory Rate 18 18 16 Respiratory Effort / Characteristics Non-Labored Spontaneous Respiratory Depth Normal Respiratory Pattern Regular Blood Pressure 121/71 131/80 Blood Pressure Mean 87 97 Pulse Oximetry 96 96 98 Oxygen Delivery Method Room Air Room Air Sepsis Recent Fever Within 48 Hours No Sepsis New/Unexplained Change in Mental Status N/A Sepsis Action Taken by Nursing No Action Required 10/29/24 16:04 Temperature Temperature Source Pulse Rate 98 H Pulse Rate from SpO2 Sensor Pulse Rhythm Respiratory Rate Respiratory Effort / Characteristics Respiratory Depth Respiratory Pattern Blood Pressure Blood Pressure Mean Pulse Oximetry Oxygen Delivery Method Sepsis Recent Fever Within 48 Hours Sepsis New/Unexplained Change in Mental Status Sepsis Action Taken by Nursing Laboratory Data 10/31/24 08:03 10/31/24 08:03 Lab Results 10/29/24 10/29/24 Range/Units 14:41 14:53 WBC 9.03 (4.8-10.8) K/ul RBC 3.90 L (4.70-6.10) M/uL Hgb 11.6 L (14.0-18.0) g/dl Hct 35.2 L (42.0-52.0) % MCV 90.3 (80.0-100.0) fL MCH 29.7 (25.0-34.0) pg MCHC 33.0 (32.0-36.0) g/dL RDW Std Deviation 47.7 H (36.4-46.3) fL RDW Coeff of Catina 14.6 H (11.5-14.5) % Plt Count 282 (130-400) K/uL MPV 8.4 L (9.4-12.4) fL Immature Gran % (Auto) 0.4 % Neut % (Auto) 68.6 % Lymph % (Auto) 15.2 % [place] % (Auto) 11.1 % Eos % (Auto) 3.9 % Baso % (Auto) 0.8 % Neut # (Auto) 6.20 (1.40-6.50) K/uL Lymph # (Auto) 1.37 (1.20-3.40) K/uL [place] # (Auto) 1.00 H (0.11-0.59) K/uL Eos # (Auto) 0.35 (0.00-0.50) K/uL Baso # (Auto) 0.07 (0.00-0.20) K/uL Immature Gran # (Auto) 0.04 (0.01-0.20) K/uL PT 10.3 (9.0-12.0) Seconds INR 0.9 (0.9-1.1) APTT 26 (21-31) Seconds PTT Ratio 1.0 Sodium 136 (136-145) mmol/L Potassium 4.9 (3.5-5.1) mmol/L Chloride 104 (98-107) mmol/L Carbon Dioxide 24 (21-32) mmol/L Anion Gap 8 (3-11) BUN 30 H (6-23) mg/dl Creatinine 1.83 H (0.6-1.4) mg/dl Est Cr Clr Drug Dosing Not Reportable eGFR 37.77 BUN/Creatinine Ratio 16.4 (10-20) Glucose 108 H (70-99(Fasting)) mg/dl Lactate 1.2 (0.4-2.0) mmol/L Calcium 9.2 (8.6-10.3) mg/dl Total Bilirubin 0.5 (0.2-1.0) mg/dl AST 14 (13-39) U/L ALT 8 (7-52) U/L Alkaline Phosphatase 70 (34-104) U/L Total Protein 6.5 (6.0-8.3) gm/dl Albumin 3.6 (3.4-5.0) gm/dl Globulin 2.9 (2.5-4.0) gm/dl Albumin/Globulin Ratio 1.2 (0.9-2) Lipase 11 (11-82) U/L Urine Color Red Urine Appearance Turbid A (Clear) Urine pH 6.5 (4.5-7.5) Ur Specific [place] 1.022 (1.000-1.030) Urine Protein 2+ H (Negative) Urine Glucose (UA) Negative (Negative) Urine Ketones Negative (Negative) Urine Blood 3+ H (Negative) Urine Nitrite Positive A (Negative) Urine Bilirubin 1+ H (Negative) Urine Urobilinogen Negative (Negative) Ur Leukocyte Esterase 2+ H (Negative) Urine WBC (Auto) >50 H (0-5) /hpf Urine RBC (Auto) >20 H (0-2) /hpf U Hyaline Cast (Auto) 0-2 (0-2) /lpf U Epithel Cells (Auto) 0-2 (0-2) /hpf Urine Bacteria (Auto) None Seen (None Seen) Urine Comment Administered Medications Discontinued Medications Acetaminophen (Acetaminophen 325 Mg Tab) 650 mg PO NOW STA Stop: 10/29/24 20:47 Last Admin: 10/29/24 20:50 Dose: 650 mg Documented By: RASHID Atorvastatin Calcium (Atorvastatin 40 Mg Tab) 40 mg PO [facility] Stop: 11/28/24 21:56 Last Admin: 10/31/24 19:06 Dose: 40 mg Documented By: Admin: 10/30/24 21:48 Dose: 40 mg Documented By: Admin: 10/29/24 22:32 Dose: 40 mg Documented By: MARZENA Calcium Carbonate (Calcium Carbonate 1250mg Tab) 1 tab PO [facility] Stop: 11/28/24 21:59 Last Admin: 10/30/24 21:48 Dose: 1 tab Documented By: Admin: 10/29/24 22:33 Dose: 1 tab Documented By: MARZENA Diazepam (Diazepam 5 Mg Tablet) 5 mg PO NOW ONE Stop: 10/30/24 22:49 Last Admin: 10/30/24 23:45 Dose: 5 mg Documented By: MARZENA Escitalopram Oxalate (Escitalopram Oxalate 10 Mg Tab) 10 mg PO QAM [facility] Stop: 11/30/24 08:59 Last Admin: 10/31/24 10:28 Dose: 10 mg Documented By: CHAYA Fentanyl Citrate (Fentanyl Citrate Pf 100 Mcg/2 Ml Vial) 50 mcg IV NOW ONE Stop: 10/29/24 18:18 Last Admin: 10/29/24 18:57 Dose: 50 mcg Documented By: RHONDA Ferrous Sulfate (Ferrous Sulfate 325 Mg Tab) 325 mg PO MoWeFr [facility] Stop: 11/29/24 08:59 Last Admin: 10/30/24 09:28 Dose: Not Given Documented By: GUILLERMO Folic Acid (Folic Acid 1 Mg Tab) 1 mg PO QPM [facility] Stop: 11/28/24 21:56 Last Admin: 10/30/24 21:49 Dose: 1 mg Documented By: Admin: 10/29/24 22:33 Dose: 1 mg Documented By: MARZENA Hydromorphone HCl (Hydromorphone Inj 0.5 Mg/0.5 Ml Syr) 0.25 mg IV NOW STA Stop: 10/30/24 00:53 Last Admin: 10/30/24 01:13 Dose: 0.25 mg Documented By: MARZENA Hydromorphone HCl (Hydromorphone Inj 0.5 Mg/0.5 Ml Syr) 0.5 mg IV Q3H PRN PRN Reason: Pain5,6,7 Stop: 11/13/24 01:53 Last Admin: 10/30/24 19:39 Dose: 0.5 mg Documented By: Admin: 10/30/24 12:11 Dose: 0.5 mg Documented By: Admin: 10/30/24 09:27 Dose: 0.5 mg Documented By: Admin: 10/30/24 06:20 Dose: 0.5 mg Documented By: Admin: 10/30/24 02:15 Dose: 0.5 mg Documented By: MARZENA Hydromorphone HCl (Hydromorphone Inj 1 Mg/Ml Syringe) 1 mg IV Q3H PRN PRN Reason: Pain 8,9,10 Stop: 11/13/24 01:53 Last Admin: 10/31/24 19:19 Dose: 1 mg Documented By: Admin: 10/31/24 11:45 Dose: 1 mg Documented By: Admin: 10/31/24 01:13 Dose: 1 mg Documented By: MARZENA Hydroxyzine HCl (Hydroxyzine Hcl 25 Mg Tab) 25 mg PO Q8H PRN PRN Reason: Anxiety/Agitation Stop: 11/30/24 07:55 Last Admin: 10/31/24 12:58 Dose: 25 mg Documented By: YARA Ceftriaxone Sodium (Rocephin) 1,000 mg in 50 mls @ 100 mls/hr IV NOW STA Stop: 10/29/24 18:34 Last Infusion: 10/29/24 19:38 Dose: Infused Documented By: Admin: 10/29/24 19:01 Dose: 100 mls/hr Documented By: RHONDA Lactated Ringer's (Lr) 1,000 mls @ 80 mls/hr IV .[id number] [facility] Stop: 11/01/24 20:29 Last Infusion: 10/30/24 19:51 Dose: Infused Documented By: Admin: 10/30/24 13:35 Dose: 125 mls/hr Documented By: Infusion: 10/30/24 13:35 Dose: Infused Documented By: Admin: 10/30/24 06:17 Dose: 125 mls/hr Documented By: Infusion: 10/30/24 06:17 Dose: Infused Documented By: Admin: 10/29/24 22:32 Dose: 125 mls/hr Documented By: MARZENA Acetaminophen (Ofirmev) 1,000 mg in 100 mls @ 400 mls/hr IV Q8H PRN PRN Reason: Pain or Fever Stop: 11/02/24 02:59 Last Infusion: 10/31/24 17:16 Dose: Infused Documented By: Admin: 10/31/24 16:53 Dose: 400 mls/hr Documented By: Infusion: 10/31/24 10:13 Dose: Infused Documented By: Admin: 10/31/24 07:15 Dose: 400 mls/hr Documented By: YARA Ceftriaxone Sodium (Rocephin) 2,000 mg in 50 mls @ 100 mls/hr IV Q24H [facility]; Protocol Stop: 11/09/24 16:29 Last Infusion: 10/31/24 17:16 Dose: Infused Documented By: Admin: 10/31/24 16:38 Dose: 100 mls/hr Documented By: Infusion: 10/30/24 19:51 Dose: Infused Documented By: Admin: 10/30/24 19:13 Dose: 100 mls/hr Documented By: MARZENA Iron Sucrose 300 mg/ Sodium (Chloride) 265 mls @ 176.667 mls/hr IV TODAY ONE Stop: 10/31/24 09:29 Last Infusion: 10/31/24 12:04 Dose: Infused Documented By: Admin: 10/31/24 09:53 Dose: 177 mls/hr Documented By: CHAYA Sodium Chloride (Nss) 500 mls @ 999 mls/hr IV .Q31M ONE Stop: 10/31/24 08:21 Last Infusion: 10/31/24 09:40 Dose: Infused Documented By: Admin: 10/31/24 08:58 Dose: 999 mls/hr Documented By: CHAYA Sodium Chloride (Nss) 1,000 mls @ 80 mls/hr IV .[id number] [facility] Stop: 11/01/24 08:59 Last Admin: 10/31/24 09:49 Dose: 80 mls/hr Documented By: CHAYA Ioversol (Optiray 320 100ml) 93 ml IV ONCE ONE Stop: 10/29/24 17:36 Last Admin: 10/29/24 17:35 Dose: 93 ml Documented By: LUCRECIA Lidocaine HCl (Lidocaine 2% Jelly 5 Ml Tube) 5 ml EXT NOW ONE Stop: 10/29/24 18:18 Last Admin: 10/29/24 18:59 Dose: 5 ml Documented By: RHONDA Lorazepam (Lorazepam 2 Mg/1 Ml Vial) 0.25 mg IV NOW ONE Stop: 10/29/24 20:24 Last Admin: 10/29/24 22:31 Dose: 0.25 mg Documented By: MARZENA Lorazepam (Lorazepam 2 Mg/1 Ml Vial) Confirm Administered Dose 2 mg .ROUTE .STK- MED ONE Stop: 10/29/24 22:30 Last Admin: 10/29/24 23:31 Dose: Not Given Documented By: MARZENA Lorazepam (Lorazepam 1 Mg Tab) 1 mg PO NOW STA Stop: 10/29/24 23:26 Last Admin: 10/29/24 23:54 Dose: 1 mg Documented By: MARZENA Magnesium Oxide (Magnesium Oxide 400 Mg Tab) 400 mg PO [facility] Stop: 11/28/24 21:59 Last Admin: 10/30/24 21:48 Dose: 400 mg Documented By: Admin: 10/29/24 22:33 Dose: 400 mg Documented By: MARZENA Ondansetron HCl (Ondansetron Inj 2 Mg/Ml 2 Ml Vial) 4 mg IV Q6H PRN PRN Reason: Nausea Stop: 11/28/24 21:56 Last Admin: 10/31/24 19:20 Dose: 4 mg Documented By: Admin: 10/31/24 12:59 Dose: 4 mg Documented By: Admin: 10/31/24 07:15 Dose: 4 mg Documented By: Admin: 10/30/24 19:38 Dose: 4 mg Documented By: Admin: 10/30/24 02:24 Dose: 4 mg Documented By: MARZENA Oxybutynin Chloride (Oxybutynin Chloride Xl 5 Mg Tabcr) 5 mg PO [facility] Stop: 11/29/24 18:29 Last Admin: 10/31/24 09:05 Dose: 5 mg Documented By: Admin: 10/30/24 19:12 Dose: 5 mg Documented By: MARZENA Pantoprazole Sodium (Pantoprazole 40 Mg Tab) 40 mg PO [facility] Stop: 11/29/24 08:59 Last Admin: 10/31/24 09:05 Dose: 40 mg Documented By: Admin: 10/30/24 09:28 Dose: Not Given Documented By: GUILLERMO Tamsulosin HCl (Tamsulosin Hcl 0.4 Mg Cap) 0.8 mg PO [facility] Stop: 11/28/24 21:56 Last Admin: 10/31/24 19:06 Dose: 0.8 mg Documented By: Admin: 10/29/24 22:34 Dose: 0.8 mg Documented By: Admin: 10/29/24 22:33 Dose: Not Given Documented By: MARZENA Discharge Plan Visit Data Chief Complaint: Hematuria Stated Complaint: BLOOD CLOTS ED Provider: Warner Borjas Discharge Problem: Gross hematuria, Urothelial carcinoma of bladder, Hydronephrosis, Acute kidney injury Patient Disposition: Admitted As Inpatient Condition: Fair Discharge Instructions Interventions: ED Discharge Assessment Last Done: 10/29/24 21:27
[2024-10-29] MEDS: OPTIRAY 320 100ml IV ONE (17:35)
[2024-10-29] MEDS: LIDOCAINE 2% JELLY 5 ML TUBE EXT ONE (18:59)
[2024-10-29] MEDS: cefTRIAXone SODIUM 1,000 MG/50 ML BAG IV STA (19:01)
--- NOTE | 2024-10-29 19:18 | CT Scan Report ---
EXAM: CT abd pelvis IV con only CLINICAL HISTORY: gross hematuria, stents, bladder caner TECHNIQUE: Contrast-enhanced CT of the abdomen and pelvis was performed, with the following protocol: axial images with, and reconstructed coronal and sagittal images. Intravenous contrast was administered. One of the following dose reduction techniques was utilized for this exam: Automated exposure control, adjustment of the mA and/or kV according to patient size, and use of iterative reconstruction. COMPARISON: None. FINDINGS: Abdomen: Liver: Normal in size, shape, and density. No focal lesions, cysts, or masses were identified. Hepatic vasculature and biliary ducts are unremarkable. Gallbladder and Biliary System: The gallbladder is normal in size and shape. No wall thickening, or pericholecystic fluid. There are few gallstones ranging 7-13 mm. The common bile duct is normal in caliber without dilation. Pancreas: Pancreatic head, body, and tail are visualized and appear normal in size and density. No pancreatic masses or calcifications were noted. The pancreatic duct is not dilated. Spleen: Normal in size, shape, and density. No splenic lesions or masses were identified. Appendix: The appendix is not seen. Kidneys and Adrenal Glands: Both kidneys are normal in size, shape, and position. Cortical thickness is within normal limits. No renal calculi. A left double J catheter is seen in adequate place with residual mild hjgfm-gysjshs-hqvhjblch. The proximal end is within the left renal upper calyx while the lower end is intravesical. Mild right tduhm-rmdiqtz-hguhpxnds. Adrenal glands are unremarkable with no evidence of masses or hyperplasia. Pelvis: Urinary Bladder: Mural wall thickening is encircling the bladder neck and encroaching upon both VUJs, reaching 24 mm in thickness. Prostate: Normal in size and contour. No focal lesions or masses identified. Seminal Vesicles: Normal in size and appearance. No abnormalities noted. Rectum and Sigmoid Colon: Uniform circumferential anorectal mural wall thickening is extending up to the distal sigmoid colon and reaching 2 cm in unilateral lip thickness. Peritoneal and Retroperitoneal Structures: No free fluid or abnormal fluid collections were identified within the abdomen or pelvis. Multiple bilateral iliac and paraortic pathological lymph nodes, measure up to 4 cm. Bowel: The visualized small bowel loops are normal in caliber and appearance. No evidence of bowel obstruction. Bones and Soft Tissues: Pelvic bones and soft tissues are unremarkable. Lower lumbar fixation. No fractures or abnormal masses were identified. Lower chest: Large hiatus hernia with adjacent small free fluid. IMPRESSION: 1. Mural wall thickening is encircling the bladder neck and encroaching upon both VUJs, reaching 24 mm in thickness, matched with the provided history of bladder cancer. Associated bilateral iliac and paraaortic pathological lymphadenopathy; metastatic. 2. A left double J catheter is seen in adequate place with residual mild jjzqg-ljhrddm-pewvjxhti. 3. Mild right baghm-mpxltql-vuzwhokgv. 4. Uniform circumferential anorectal mural wall thickening is extending up to the distal sigmoid colon, limited assessment due to collapsed lumen. Advise reassessment after rectal contrast distension. 5. Calcular GB. 6. Large hiatus hernia with adjacent small free fluid. Electronically signed by Omar Dickinson 10-29-2024 7:18 PM
--- NOTE | 2024-10-29 19:40 | History & Physical Report ---
Date of Service October 29, 2024 Assessment & Plan (1) Gross hematuria: (2) Acute kidney injury: (3) Diarrhea: Plan 74-year-old male PMHx of PAD, prostate cancer (2021 s/p TURBT, metastatic urothelial carcinoma), BPH, HLD, DVT (1999), TIA (2016, x 2), LIZBETH on CPAP, GERD, spinal stenosis, and hydronephrosis presenting for hematuria. Patient states that he has been following with urology for worsening creatinine and known hydronephrosis. ED evaluation reveals CBC without leukocytosis, H&H 11.6/35.2; PT/INR WNL; CMP creatinine 1.83, BUN 39, glucose 100; lactate 1.2 protein, blood, nitrites, LE, WBC and RBC without bacteria; CTAP mural wall thickening bladder neck (24 mm thickness), LAD, left double-J catheter in adequate place with residual hydroureteronephrosis, anorectal mural wall thickening to the sigmoid colon, calcular GB, hiatal hernia; EKG sinus tachycardia with LAFB at 101 bpm.; Provided with fentanyl 50 mcg IV and ceftriaxone 1 g IV in the ED. #Gross hematuria/ALESIA/Metastatic urothelial CA H/o prostate CA (dx 2021, s/p TURBT), BPH, known hydronephrosis bilaterally (s/p L ureteral stent 08/29/2024); Was having normal renal functions until September 2024 where it started to increase to 1.8-2.0. Currently awaiting bilateral nephrostomy tubes. Initially was scheduled to have bilateral stents placed but due to anatomy, unable to be completed. Does follow with oncology, is to "start on Enfortumab Vedotin/pembrolizumab from 10/30/24 (EV 1.2 mg/kg, D 1, 8, Pembrolizumab 200 mg IV q21d) x 9 cycles and then Pembrolizumab x 2 years" per urology note (10/29/2024). Hematuria with clots worsening day of arrival. Hand irrigation completed in ED, pt passing urine independently now. - CBC w/o leukocytosis, H/H 11.6/35.2; CMP Cr 1.83, BUN 39; lactate WNL - CBC, BMP am - UA does have abnormal findings, no bacteria present however; pending cx -- did receive 1 dose ceftriaxone in ED - deferred at time of admission, adjust at urology's discretion - CTAP mural wall thickening of bladder (24mm), LAD, L double-J catheter - Bladder scan prn - If clotting continues, assist with manual irrigation first. If no resolution, then initiate CBI - Tamsulosin po - continue - Hold ASA + Plavix night of admission - IVF LR @ 125 mL/hr - Urology consulted - appreciate input + recs - Oncology consulted - appreciate input + recs #Diarrhea Ongoing x 1 month; Takes Imodium as needed for loose stool. - CBC w/o leukocytosis, lactate WNL - CTAP uniform circumferential anorectal mural wall thickening to distal sigmoid - Stool studies completed ~ 1 week ago, negative results - Continue prn imodium #H/o TIA- x2 in 2015; On DAPT (ASA on //, Plavix) - HOLD while gross hematuria #HLD- Atorvastatin - continue #RANI- H/H 11.6/35.2 at admission; On ferrous sulfate (//), folic acid po - continue #GERD- Omeprazole - continue Dispo: Admit, med/tele VTE Prophylaxis: SCDs This document was dictated utilizing Datalink. Please excuse any grammatical errors that may be secondary to use of this software. Admission and Anticipated Discharge Date Admission Date: 10/29/2024 History of Present Illness Chief Complaint: Hematuria Primary Care Provider: Pete Escobar MD 74-year-old male PMHx of PAD, prostate cancer (2021 s/p TURBT, metastatic urothelial carcinoma), BPH, HLD, DVT (1999), TIA (2015, x 2), LIZBETH on CPAP, GERD, spinal stenosis, and hydronephrosis presenting for hematuria. Patient states that he has been following with urology for worsening creatinine and known hydronephrosis. Patient states that he has not ongoing for coming and going episodes of hematuria for "months." States that he [facility] arrival he started to pass clots in his urine and was having bright red urine. He was not having any pain, but continues to feel as though he cannot urinate which has also been "going on for a while." States he has been able to control his bowel and bladder for the past month or so. Whenever he is sitting and stretches his legs out he is without control. Patient denies fever or chills. No pain at present, just some discomfort with sleeping. Denies palpitation, SOB, lightheadedness, dizziness, or syncope. He does not use urinary catheter at baseline. He had a stent placed in August by urology. He did have a port placed in his L chest on 10/24/2024 because he was scheduled to have chemo initiated on 10/30/2024. He does admit to some anxiety regarding his situation. Requesting something to help with his anxiety and to help him sleep. ED evaluation reveals CBC without leukocytosis, H&H 11.6/35.2; PT/INR WNL; CMP creatinine 1.83, BUN 39, glucose 100; lactate 1.2 protein, blood, nitrites, LE, WBC and RBC without bacteria; CTAP rmural wall thickening bladder neck (24 mm thickness), LAD, left double-J catheter in adequate place with residual hydroureteronephrosis, anorectal mural wall thickening to the sigmoid colon, calcular GB, hiatal hernia; EKG sinus tachycardia with LAFB at 101 bpm.; Provided with fentanyl 50 mcg IV and ceftriaxone 1 g IV in the ED. Please see Dr. Breaux's attestation for adjustments/additions to treatment plan. Allergies Allergy/AdvReac Type Severity Reaction Status Date / Time No Known Drug Allergies Allergy Verified 10/29/24 12:56 Home Medications Medication Instructions Recorded Confirmed Type aspirin 81 mg tablet,delayed 81 mg PO UD 08/20/20 10/29/24 History release atorvastatin 40 mg tablet (Lipitor) 40 mg PO HS 08/20/20 10/29/24 History cholecalciferol (vitamin D3) 25 25 mcg PO HS 08/20/20 10/29/24 History mcg (1,000 unit) tablet clopidogrel 75 mg tablet (Plavix) 75 mg PO QAM 08/20/20 10/29/24 History cyanocobalamin (vitamin B-12) 1,000 mcg PO QPM 08/20/20 10/29/24 History 1,000 mcg tablet (Vitamin B-12) folic acid 1 mg tablet 1 mg PO QPM 08/20/20 10/29/24 History omeprazole 40 mg capsule,delayed 40 mg PO QAM 08/20/20 10/29/24 History release tamsulosin 0.4 mg capsule 0.8 mg PO HS 08/21/24 10/29/24 History ferrous sulfate 325 mg (65 mg 325 mg PO 3XWK 10/14/24 10/29/24 History iron) tablet (FeroSul) calcium carbonate 500 mg PO HS 10/15/24 10/29/24 History magnesium aspart,citrate,oxide 400 mg PO HS 10/15/24 10/29/24 History loperamide 2 mg capsule 2 mg PO BID PRN Loose Stool 10/29/24 10/29/24 History vibegron 75 mg tablet 0 mg PO DAILY 10/29/24 10/29/24 History Past Med/Surg History Problem List (Updated 10/29/24 @ 20:27 by Esvin Cardenas PA-C) Diarrhea Gross hematuria Iron deficiency anemia Acute kidney injury Hydronephrosis Urothelial carcinoma of bladder History of bladder cancer Neurogenic 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 spinal stenosis BPH (benign prostatic hyperplasia) GERD (gastroesophageal reflux disease) controlled Hyperlipidemia Sleep apnea CPAP Transient ischemic attack (TIA) x2 (2015)- on plavix Medical History Hydronephrosis creat worsening; pt saw urology and had procedure 10/22/24 Anemia heme/onc following On anticoagulant therapy Hx of motion sickness PONV (postoperative nausea and vomiting) Prostate cancer dx in 2021 - monitoring, no treatment Bladder cancer initially dx 2021,s/p TURBT; now with metastatic urothelial carcinoma: curre ntly undergoing chemo tx History of COVID-2019 - no hospitalization Hyperlipidemia Hx of deep venous thrombosis remote hx, prior to 1999 (s/p surgery) - no issues since treated with anticoagulant. History of TIA (transient ischemic attack) x2 (2015)- on plavix BPH (benign prostatic hyperplasia) Sleep apnea cpap GERD (gastroesophageal reflux disease) Spinal stenosis Hiatal hernia Surgical History H/O insertion of central venous access port (10/24/24) Insertion of Access Port with Fluoroscopy(Left) - Sky Mojica, DO History of cystoscopy 10/22/24; 'no major complications' per anesthesia progress note S/P trigger finger release S/P cataract extraction S/P ureteral stent placement left (early august 2024) H/O transurethral resection of bladder tumor (TURBT) August 2024 S/P spinal surgery L3/[address] 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) History of arthroscopy R/L rotator cuff repairs (Rx1, Lx2) History of herniorrhaphy Right inguinal Status post repair of hydrocele History of esophagogastroduodenoscopy (EGD) History of colonoscopy Family History Father Cancer Sister Cancer Other Hypertension No family history of adverse response to anesthesia Social History Smoking Status: Never smoker Second Hand Exposure: No; Do You Dip or Chew Tobacco: No; Hx Alcohol Use: No Hx Substance Use: No Preferred Language: Singaporean Communication Ability: Effective Adventure Guide Required: No Beliefs That Will Affect Care: None marital status: Current Living Situation: Spouse and Family Current Living Situation Comment: home with and grandson current occupational status: retired How many Children do You have: 1 Other Information That Helps Us Care for You: No Feels Safe at Home: Yes Safety Concerns: Feels Safe At This Time during the past year weight has: remained stable Assistive Devices: Cane and Glasses Review of Systems Review of Systems: All systems reviewed & are unremarkable except as noted in Subjective Physical Exam Physical Exam: General: No acute distress Skin: Warm and dry Head: Normocephalic, atraumatic Eyes: PERRL, conjunctivae clear, sclera non-icteric; wearing glasses ENT: External ear and ear canal without swelling; nose atraumatic; good dentition, tongue normal appearance, pharynx normal Neck: Supple, no LAD Cardio: RRR, no M/G/R, S1 and S2 normal Resp: No respiratory distress, Lungs CTA in all lobes bilaterally, no wheezes, rales, or rhonchi Abdomen: Soft, symmetric, mild tenderness to palpation of RLQ/LLQ; No masses or hepatosplenomegaly; Bowel sounds normoactive : Urinary catheter in place, light red urine in tubing and bag; some minimal clots base of bag MSK: No deformities; pulses palpable and equal; no edema. Neuro: Awake, alert; Sensation intact bilaterally; CN grossly intact Psych: Appropriate mood and affect; good judgement and insight. , Windy, present in room at time of visit. Results & Data Results & Data Vital Signs (Past 12 Hours) Vital Signs Temp Pulse Resp BP Pulse Ox O2 Del Method 10/29/24 19:30 89 10/29/24 19:00 94 H 21 140/83 95 10/29/24 18:06 90 9 L 142/92 H 96 10/29/24 17:00 89 16 132/85 96 10/29/24 16:33 88 5 L 135/86 97 10/29/24 16:04 98 H 10/29/24 16:00 91 H 16 131/80 98 10/29/24 15:00 119 H 18 96 Room Air 10/29/24 14:21 36.6 C 119 H 18 121/71 96 Room Air Laboratory Results 10/29/24 14:53 Urine Culture - Pending Urine,Clean Catch 10/29/24 10/29/24 14:53 14:41 WBC 9.03 RBC 3.90 L Hgb 11.6 L Hct 35.2 L MCV 90.3 MCH 29.7 MCHC 33.0 RDW Std Deviation 47.7 H RDW Coeff of [place] 14.6 H Plt Count 282 MPV 8.4 L Immature Gran % (Auto) 0.4 Neut % (Auto) 68.6 Lymph % (Auto) 15.2 [place] % (Auto) 11.1 Eos % (Auto) 3.9 Baso % (Auto) 0.8 Neut # (Auto) 6.20 Lymph # (Auto) 1.37 [place] # (Auto) 1.00 H Eos # (Auto) 0.35 Baso # (Auto) 0.07 Immature Gran # (Auto) 0.04 PT 10.3 INR 0.9 APTT 26 PTT Ratio 1.0 Sodium 136 Potassium 4.9 Chloride 104 Carbon Dioxide 24 Anion Gap 8 BUN 30 H Creatinine 1.83 H Est Cr Clr Drug Dosing Not Reportable eGFR 37.77 BUN/Creatinine Ratio 16.4 Glucose 108 H Lactate 1.2 Calcium 9.2 Total Bilirubin 0.5 AST 14 ALT 8 Alkaline Phosphatase 70 Total Protein 6.5 Albumin 3.6 Globulin 2.9 Albumin/Globulin Ratio 1.2 Lipase 11 Urine Color Red Urine Appearance Turbid A Urine pH 6.5 Ur Specific [place] 1.022 Urine Protein 2+ H Urine Glucose (UA) Negative Urine Ketones Negative Urine Blood 3+ H Urine Nitrite Positive A Urine Bilirubin 1+ H Urine Urobilinogen Negative Ur Leukocyte Esterase 2+ H Urine WBC (Auto) >50 H Urine RBC (Auto) >20 H U Hyaline Cast (Auto) 0-2 U Epithel Cells (Auto) 0-2 Urine Bacteria (Auto) None Seen Urine Comment Diagnostic Findings Abdomen/Pelvis CT 10/29/24 14:33 EXAM: CT abd pelvis IV con only CLINICAL HISTORY: gross hematuria, stents, bladder caner TECHNIQUE: Contrast-enhanced CT of the abdomen and pelvis was performed, with the following protocol: axial images with, and reconstructed coronal and sagittal images. Intravenous contrast was administered. One of the following dose reduction techniques was utilized for this exam: Automated exposure control, adjustment of the mA and/or kV according to patient size, and use of iterative reconstruction. COMPARISON: None. FINDINGS: Abdomen: Liver: Normal in size, shape, and density. No focal lesions, cysts, or masses were identified. Hepatic vasculature and biliary ducts are unremarkable. Gallbladder and Biliary System: The gallbladder is normal in size and shape. No wall thickening, or pericholecystic fluid. There are few gallstones ranging 7-13 mm. The common bile duct is normal in caliber without dilation. Pancreas: Pancreatic head, body, and tail are visualized and appear normal in size and density. No pancreatic masses or calcifications were noted. The pancreatic duct is not dilated. Spleen: Normal in size, shape, and density. No splenic lesions or masses were identified. Appendix: The appendix is not seen. Kidneys and Adrenal Glands: Both kidneys are normal in size, shape, and position. Cortical thickness is within normal limits. No renal calculi. A left double J catheter is seen in adequate place with residual mild akgey-zxsuahn-joqngxike. The proximal end is within the left renal upper calyx while the lower end is intravesical. Mild right nxaht-ngrrsyl-hpmbrpvkz. Adrenal glands are unremarkable with no evidence of masses or hyperplasia. Pelvis: Urinary Bladder: Mural wall thickening is encircling the bladder neck and encroaching upon both VUJs, reaching 24 mm in thickness. Prostate: Normal in size and contour. No focal lesions or masses identified. Seminal Vesicles: Normal in size and appearance. No abnormalities noted. Rectum and Sigmoid Colon: Uniform circumferential anorectal mural wall thickening is extending up to the distal sigmoid colon and reaching 2 cm in unilateral lip thickness. Peritoneal and Retroperitoneal Structures: No free fluid or abnormal fluid collections were identified within the abdomen or pelvis. Multiple bilateral iliac and paraortic pathological lymph nodes, measure up to 4 cm. Bowel: The visualized small bowel loops are normal in caliber and appearance. No evidence of bowel obstruction. Bones and Soft Tissues: Pelvic bones and soft tissues are unremarkable. Lower lumbar fixation. No fractures or abnormal masses were identified. Lower chest: Large hiatus hernia with adjacent small free fluid. IMPRESSION: 1. Mural wall thickening is encircling the bladder neck and encroaching upon both VUJs, reaching 24 mm in thickness, matched with the provided history of bladder cancer. Associated bilateral iliac and paraaortic pathological lymphadenopathy; metastatic. 2. A left double J catheter is seen in adequate place with residual mild avryb-hwqhmfo-czttifcis. 3. Mild right omtzb-jducvkx-odpfnjqmo. 4. Uniform circumferential anorectal mural wall thickening is extending up to the distal sigmoid colon, limited assessment due to collapsed lumen. Advise reassessment after rectal contrast distension. 5. Calcular GB. 6. Large hiatus hernia with adjacent small free fluid. Electronically signed by Omar Dickinson 10-29-2024 7:18 PM Medications Administered Fentanyl 50 mcg IV Ceftriaxone 1 g IV ECG Additional Comments: Sinus tachycardia, LAFB 101 bpm, MT 148, QRS 88, QT/QTc 336/435, PRT 35/-51/20 Code Status & VTE Plan Code Status Full Supervising Physician Co-Signing Physician Notes Patient seen and examined, chart reviewed, case discussed with MARILOU Cardenas and I agree with the assessment and plan as above PG Care Time/CCT Total # of Minutes Spent Total Time Spent with Patient: Total time spent is greater than 50% in coordination of care (as documented) at patient's floor/unit and/or counseling patient: Coding Level of Care Code 29340 INT INP/OBS CARE 3/75MIN Diagnoses Gross hematuria R31.0 Acute kidney injury N17.9 Diarrhea R19.7
[2024-10-29] MEDS: ACETAMINOPHEN 325 MG TAB PO STA (20:50)
[2024-10-29] MEDS ORDERED: LOPERAMIDE HCL 2 MG CAP PO PRN (21:57)
[2024-10-29] MEDS ORDERED: POLYETHYLENE (MIRALAX) 17 GM PACK PO PRN (21:57)
[2024-10-29] MEDS ORDERED: ACETAMINOPHEN 325 MG TAB PO PRN (21:57)
[2024-10-29] MEDS: ATORVASTATIN 40 MG TAB PO SCH (22:32)
[2024-10-29] MEDS: LACTATED RINGER'S 1,000 ML IV SCH (22:32)
[2024-10-29] MEDS: TAMSULOSIN HCL 0.4 MG CAP PO SCH (22:33)
[2024-10-29] MEDS: FOLIC ACID 1 MG TAB PO SCH (22:33)
[2024-10-29] MEDS: CALCIUM CARBONATE 1250MG TAB PO SCH (22:33)
[2024-10-29] MEDS: MAGNESIUM OXIDE 400 MG TAB PO SCH (22:33)
[2024-10-29] MEDS: LORazepam 1 MG TAB PO STA (23:54)
[2024-10-30] MEDS: HYDROmorphone INJ 0.5 MG/0.5 ML SYR IV STA (01:13)
[2024-10-30] MEDS: HYDROmorphone INJ 0.5 MG/0.5 ML SYR IV PRN (02:15)
[2024-10-30] MEDS: ONDANSETRON INJ 2 MG/ML 2 ML VIAL IV PRN (02:24)
[2024-10-30 04:30] LABS: Hematocrit (blood only) 28.8 % (42.0-52.0); Hemoglobin 9.4 g/dl (14.0-18.0); Mean Corpuscular Hemoglobin 29.6 pg (25.0-34.0); Mean Corpuscular Volume 90.6 fL (80.0-100.0); Platelet Count 265 K/uL (130-400); RDW Standard Deviation 47.5 fL (36.4-46.3); Red Blood Count 3.18 M/uL (4.70-6.10); White Blood Count 8.05 K/ul (4.8-10.8)
[2024-10-30 04:48] LABS: Anion Gap 6.0 (3-11); Blood Urea Nitrogen 29.0 mg/dl (6-23); Calcium 8.5 mg/dl (8.6-10.3); Carbon Dioxide 23.0 mmol/L (21-32); Chloride 104.0 mmol/L (98-107); Creatinine Clr Calc Pharmacy 47.9 ml/min; Glucose 123.0 mg/dl (70-99(Fasting)); Potassium 5.1 mmol/L (3.5-5.1); Sodium 133.0 mmol/L (136-145)
--- NOTE | 2024-10-30 07:45 | Oncology Consultation ---
Date of Consultation October 30, 2024 Assessment & Plan (1) Gross hematuria: (2) Urothelial carcinoma of bladder: Plan -Management of gross hematuria by urology -Plan to start systemic therapy upon discharge from hospital -While he is in the hospital, recommend giving IV iron sucrose 300 mg daily x 2 to 3 days. Thank you for this consult. Please feel free to call if you have any further questions. History of Present Illness Reason for Consultation: Metastatic urothelial carcinoma Attending Physician: Jeff Dumas History of Present Illness 74-year-old gentleman with metastatic urothelial carcinoma who was scheduled to start systemic therapy with enfortumab vedotin plus pembrolizumab today. He pr esented to the ER yesterday with gross hematuria. Allergies Allergy/AdvReac Type Severity Reaction Status Date / Time No Known Drug Allergies Allergy Verified 10/29/24 12:56 Home Medications Medication Instructions Recorded Confirmed Type aspirin 81 mg tablet,delayed 81 mg PO UD 08/20/20 10/29/24 History release atorvastatin 40 mg tablet (Lipitor) 40 mg PO HS 08/20/20 10/29/24 History cholecalciferol (vitamin D3) 25 25 mcg PO HS 08/20/20 10/29/24 History mcg (1,000 unit) tablet clopidogrel 75 mg tablet (Plavix) 75 mg PO QAM 08/20/20 10/29/24 History cyanocobalamin (vitamin B-12) 1,000 mcg PO QPM 08/20/20 10/29/24 History 1,000 mcg tablet (Vitamin B-12) folic acid 1 mg tablet 1 mg PO QPM 08/20/20 10/29/24 History omeprazole 40 mg capsule,delayed 40 mg PO QAM 08/20/20 10/29/24 History release tamsulosin 0.4 mg capsule 0.8 mg PO HS 08/21/24 10/29/24 History ferrous sulfate 325 mg (65 mg 325 mg PO 3XWK 10/14/24 10/29/24 History iron) tablet (FeroSul) calcium carbonate 500 mg PO HS 10/15/24 10/29/24 History magnesium aspart,citrate,oxide 400 mg PO HS 10/15/24 10/29/24 History loperamide 2 mg capsule 2 mg PO BID PRN Loose Stool 10/29/24 10/29/24 History vibegron 75 mg tablet 0 mg PO DAILY 10/29/24 10/29/24 History Patient History Medical History Hydronephrosis creat worsening; pt saw urology and had procedure 10/22/24 Anemia heme/onc following On anticoagulant therapy Hx of motion sickness PONV (postoperative nausea and vomiting) Prostate cancer dx in 2021 - monitoring, no treatment Bladder cancer initially dx 2021,s/p TURBT; now with metastatic urothelial carcinoma: currently undergoing chemo tx History of COVID-2019 - no hospitalization Hyperlipidemia Hx of deep venous thrombosis remote hx, prior to 1999 (s/p surgery) - no issues since treated with anticoagulant. History of TIA (transient ischemic attack) x2 (2015)- on plavix BPH (benign prostatic hyperplasia) Sleep apnea cpap GERD (gastroesophageal reflux disease) Spinal stenosis Hiatal hernia Surgical History H/O insertion of central venous access port (10/24/24) Insertion of Access Port with Fluoroscopy(Left) - Sky Mojica, History of cystoscopy 10/22/24; 'no major complications' per anesthesia progress note S/P trigger finger release S/P cataract extraction S/P ureteral stent placement left (early august 2024) H/O transurethral resection of bladder tumor (TURBT) August 2024 S/P spinal surgery L3/[address] 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) History of arthroscopy R/L rotator cuff repairs (Rx1, Lx2) History of herniorrhaphy Right inguinal Status post repair of hydrocele History of esophagogastroduodenoscopy (EGD) History of colonoscopy Family History Father Cancer Sister Cancer Other Hypertension No family history of adverse response to anesthesia Social History Smoking Status: Never smoker Second Hand Exposure: No; Do You Dip or Chew Tobacco: No; Hx Alcohol Use: No Hx Substance Use: No Preferred Language: Omani Communication Ability: Effective Garage Door Technician Required: No Beliefs That Will Affect Care: None marital status: Current Living Situation: Spouse and Family Current Living Situation Comment: home with and grandson current occupational status: retired How many Children do You have: 1 Other Information That Helps Us Care for You: No Feels Safe at Home: Yes Safety Concerns: Feels Safe At This Time during the past year weight has: remained stable Assistive Devices: Cane and Glasses Results & Data Vital Signs (Past 12 Hours) Vital Signs Temp Pulse Pulse Resp BP BP Pulse Ox 10/30/24 04:03 36.6 C 90 14 118/72 93 10/30/24 04:02 124 H 10/30/24 00:31 37.2 C 83 20 114/70 95 10/29/24 22:00 10/29/24 22:00 36.5 C 113 H 16 118/76 97 10/29/24 21:57 36.5 C 113 H 16 123/84 97 10/29/24 21:57 10/29/24 21:15 100 H 19 10/29/24 21:00 106 H 10/29/24 21:00 110/56 L 10/29/24 21:00 110/56 L 10/29/24 21:00 110/56 L 10/29/24 20:42 105 H 24 95 10/29/24 20:30 89 22 96 10/29/24 20:21 99 H 18 10/29/24 20:15 96 H 14 10/29/24 20:03 89 13 98 10/29/24 20:00 145/88 H 10/29/24 20:00 145/88 H 10/29/24 19:51 86 98 10/29/24 19:45 136/86 10/29/24 19:45 86 16 97 Pulse Ox O2 Del Method O2 Del Method 10/30/24 04:03 Room Air 10/30/24 04:02 10/30/24 00:31 Room Air 10/29/24 22:00 Room Air 10/29/24 22:00 Room Air 10/29/24 21:57 Room Air 10/29/24 21:57 97 Room Air 10/29/24 21:15 10/29/24 21:00 10/29/24 21:00 10/29/24 21:00 10/29/24 21:00 10/29/24 20:42 10/29/24 20:30 10/29/24 20:21 10/29/24 20:15 10/29/24 20:03 10/29/24 20:00 10/29/24 20:00 10/29/24 19:51 10/29/24 19:45 10/29/24 19:45
--- NOTE | 2024-10-30 08:51 | Urology Consultation ---
<Statement entered by Kailash Fox MD - 10/30/24 11:48> 74-year-old male with metastatic bladder cancer, change pending outpatient therapy. Hematuria is most likely related to his bladder cancer. Agree with continuous bladder irrigation, weaning as able and performing hand irrigation if needed. Due to progressive hydronephrosis and inability to place ureteral stent on the right side, plan had been to attempt nephrostomy tube placement as an outpatient, however at this point would recommend transferring him for nephrostomy tubes to divert the urine away from the bladder which may also help with hematuria. Date of Consultation October 30, 2024 Assessment & Plan (1) Gross hematuria: (2) Hydronephrosis: (3) Urothelial carcinoma of bladder: (4) Acute kidney injury: Plan 74yo male with a hx of metastatic urothelial carcinoma who is admitted with gross hematuria and ALESIA. Recent history of TURBT and left ureteral stent placement on 08/29/[address] Fxo which demonstrated high-grade urothelial carcinoma. Was then found to have right sided hydronephrosis and worsening creatinine possibly due to extrinsic compression developing of his right ureter. He underwent attempted right ureteral stent placement on 10/22/[address] Fox, however, the ureteral orifice could not be identified. An outpatient referral was placed to [facility] interventional radiology for consideration of nephrostomy tubes. He presented to the ED on 10/[address] abd pelvis on arrival demonstrated mural wall thickening encircling the bladder neck and encroaching upon both UVJ's reaching 24 mm in thickness, a left ureteral stent is in place with mild hydronephrosis and there is mild right sided hydronephrosis. Pt is afebrile and hemodynamically stable at present. Labs today reviewed -WBCs 8.05, hemoglobin 9.4 (11.6 on admit), creatinine 1.66 (1.83 on admit). Continue to trend. Urine culture pending. Received IV ceftriaxone in the ED. On exam today, the patient was noted to have a 16Fr Bo catheter in place with minimal hematuria. Due to minimal drainage and discomfort, I removed the 16Fr Bo catheter. Using sterile technique, a 20Fr 3-way Bo catheter was placed by myself and nursing staff. The catheter was then flushed without difficulty with removal of a small amount of clot. CBI was then initiated on slow rate. Pt tolerated the procedure well. At completion, the catheter was draining light pink urine with CBI on slow rate. The patient reported improvement in pain. Recommend maintaining the catheter and monitor output. Can titrate CBI as needed. Okay to manually irrigate for clots, retention, suprapubic pain. Would also recommend continuing antibiotic coverage given the catheter manipulations/CBI. Given his hydronephrosis, ALESIA, and prior unsuccessful attempt at right ureteral stent placement, would recommend transfer for interventional radiology for nephrostomy tube placement. He may benefit from bilateral nephrostomy tubes to divert urine away from the bladder. Recommendations discussed with patient and he is agreeable to plan/transfer. Discussed with hospitalist. Urology will follow along, please contact us with any questions/concerns. Plan/case discussed with Dr. Fox. History of Present Illness Attending Physician: Jeff Dumas History of Present Illness 74 year old male with a hx significant for metastatic urothelial carcinoma who presented to the ED on 10/29/24 with gross hematuria. ED evaluation revealed a CBC without leukocytosis, H&H 11.6/35.2, creatinine 1.83. UA showed 3+ blood, positive nitrite, 2+ LE, negative bacteria. CT abdomen pelvis demonstrated mural wall thickening encircling the bladder neck and encroaching upon both UVJ 's reaching 24 mm in thickness, a left ureteral stent is in place with mild hydronephrosis and there is mild right sided hydronephrosis. A Bo catheter was placed in the ED. He is admitted to medicine service. Patient is known to the urology service, follows with Dr. Fox. Hx of metastatic urothelial carcinoma. Hx TURBT performed on 08/29/2024 demonstrated high-grade urothelial carcinoma with left ureteral stent placed at that time. Due to possible extrinsic compression developing of his right ureter, causing hydronephrosis and worsening renal function, he underwent attempted right urete ral stent placement on 10/22/[address] Fox. However, the ureteral orifice could not be identified. Therefore a referral was placed for interventional radiology for consideration of nephrostomy tubes. He is following with Onc and had a port placed on 10/24/2024 because he was scheduled to have chemo initiated on 10/30/2024. Patient was seen at bedside today. He is awake and resting in bed on arrival. No acute distress. Nurse at bedside. Pt reporting bladder and right sided flank pain. The Bo catheter is intact draining minimal amount of hematuria. Per nursing, the catheter required frequent manual irrigation overnight due to clots. Allergies Allergy/AdvReac Type Severity Reaction Status Date / Time No Known Drug Allergies Allergy Verified 10/29/24 12:56 Home Medications Medication Instructions Recorded Confirmed Type aspirin 81 mg tablet,delayed 81 mg PO UD 08/20/20 10/29/24 History release atorvastatin 40 mg tablet (Lipitor) 40 mg PO HS 08/20/20 10/29/24 History cholecalciferol (vitamin D3) 25 25 mcg PO HS 08/20/20 10/29/24 History mcg (1,000 unit) tablet clopidogrel 75 mg tablet (Plavix) 75 mg PO QAM 08/20/20 10/29/24 History cyanocobalamin (vitamin B-12) 1,000 mcg PO QPM 08/20/20 10/29/24 History 1,000 mcg tablet (Vitamin B-12) folic acid 1 mg tablet 1 mg PO QPM 08/20/20 10/29/24 History omeprazole 40 mg capsule,delayed 40 mg PO QAM 08/20/20 10/29/24 History release tamsulosin 0.4 mg capsule 0.8 mg PO HS 08/21/24 10/29/24 History ferrous sulfate 325 mg (65 mg 325 mg PO 3XWK 10/14/24 10/29/24 History iron) tablet (FeroSul) calcium carbonate 500 mg PO HS 10/15/24 10/29/24 History magnesium aspart,citrate,oxide 400 mg PO HS 10/15/24 10/29/24 History loperamide 2 mg capsule 2 mg PO BID PRN Loose Stool 10/29/24 10/29/24 History vibegron 75 mg tablet 0 mg PO DAILY 10/29/24 10/29/24 History Patient History Medical History Hydronephrosis creat worsening; pt saw urology and had procedure 10/22/24 Anemia heme/onc following On anticoagulant therapy Hx of motion sickness PONV (postoperative nausea and vomiting) Prostate cancer dx in 2021 - monitoring, no treatment Bladder cancer initially dx 2021,s/p TURBT; now with metastatic urothelial carcinoma: currently undergoing chemo tx History of COVID-19 2019 - no hospitalization Hyperlipidemia Hx of deep venous thrombosis remote hx, prior to 1999 (s/p surgery) - no issues since treated with anticoagulant. History of TIA (transient ischemic attack) x2 (2015)- on plavix BPH (benign prostatic hyperplasia) Sleep apnea cpap GERD (gastroesophageal reflux disease) Spinal stenosis Hiatal hernia Surgical History H/O insertion of central venous access port (10/24/24) Insertion of Access Port with Fluoroscopy(Left) - Sky Mojica, History of cystoscopy 10/22/24; 'no major complications' per anesthesia progress note S/P trigger finger release S/P cataract extraction S/P ureteral stent placement left (early august 2024) H/O transurethral resection of bladder tumor (TURBT) August 2024 S/P spinal surgery L3/[address] 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) History of arthroscopy R/L rotator cuff repairs (Rx1, Lx2) History of herniorrhaphy Right inguinal Status post repair of hydrocele History of esophagogastroduodenoscopy (EGD) History of colonoscopy Family History Father Cancer Sister Cancer Other Hypertension No family history of adverse response to anesthesia Social History Smoking Status: Never smoker Second Hand Exposure: No; Do You Dip or Chew Tobacco: No; Hx Alcohol Use: No Hx Substance Use: No Preferred Language: Guinean Communication Ability: Effective Data Entry Manager Required: No Beliefs That Will Affect Care: None marital status: Current Living Situation: Spouse and Family Current Living Situation Comment: home with and grandson current occupational status: retired How many Children do You have: 1 Other Information That Helps Us Care for You: No Feels Safe at Home: Yes Safety Concerns: Feels Safe At This Time during the past year weight has: remained stable Assistive Devices: Cane and Glasses Review of Systems Review of Systems: All systems reviewed & are unremarkable except as noted in HPI & below Physical Exam Constitutional: no acute distress Respiratory: no respiratory distress and no labored breathing Musculoskeletal: Head/Neck/Chest: normocephalic Neurologic: moves all extremities and awake Psychiatric: A+Ox3, euthymic affect Genitourinary: Bo intact Results & Data Vital Signs (Past 12 Hours) Vital Signs Temp Pulse Pulse Resp BP BP Pulse Ox 10/30/24 07:49 36.7 C 96 H 20 147/79 H 92 10/30/24 04:03 36.6 C 90 14 118/72 93 10/30/24 04:02 124 H 10/30/24 00:31 37.2 C 83 20 114/70 95 10/29/24 22:00 10/29/24 22:00 36.5 C 113 H 16 118/76 97 10/29/24 21:57 36.5 C 113 H 16 123/84 97 10/29/24 21:57 10/29/24 21:15 100 H 19 10/29/24 21:00 106 H 10/29/24 21:00 110/56 L 10/29/24 21:00 110/56 L 10/29/24 21:00 110/56 L Pulse Ox O2 Del Method O2 Del Method 10/30/24 07:49 Room Air 10/30/24 04:03 Room Air 10/30/24 04:02 10/30/24 00:31 Room Air 10/29/24 22:00 Room Air 10/29/24 22:00 Room Air 10/29/24 21:57 Room Air 10/29/24 21:57 97 Room Air 10/29/24 21:15 10/29/24 21:00 10/29/24 21:00 10/29/24 21:00 10/29/24 21:00 PG Care Time/CCT Total # of Minutes Spent Total Time Spent with Patient: Total time spent is greater than 50% in coordination of care (as documented) at patient's floor/unit and/or counseling patient: Coding Level of Care Code 37559 INT INP/OBS CARE 2/55MIN Diagnoses Gross hematuria R31.0 Hydronephrosis N13.30 Urothelial carcinoma of bladder C67.9 Acute kidney injury N17.9
[2024-10-30] MEDS: FERROUS SULFATE 325 MG TAB PO SCH (09:28)
--- NOTE | 2024-10-30 10:57 | Electrocardiogram Report ---
Test Reason : Blood Pressure : */* mmHG Vent. Rate : 101 BPM Atrial Rate : 101 BPM P-R Int : 148 ms QRS Dur : 88 ms QT Int : 336 ms P-R-T Axes : 35 -51 20 degrees QTcB Int : 435 ms Sinus tachycardia Left anterior fascicular block Abnormal ECG When compared with ECG of 05-Sep-2020 19:29, Left anterior fascicular block is now Present Confirmed by Collin Hahn ([id number]) on 10/30/2024 10:57:23 AM Referred By: Kailash Fox Confirmed By: Collin Hahn
[2024-10-30 15:34] LABS: Hematocrit (blood only) 28.0 % (42.0-52.0); Hemoglobin 9.6 g/dl (14.0-18.0)
--- NOTE | 2024-10-30 16:20 | Hospitalist Progress Note ---
Date of Service October 30, 2024 Assessment & Plan (1) Gross hematuria: (2) Acute kidney injury: (3) Diarrhea: Plan 74-year-old male PMHx of PAD, prostate cancer (2021 s/p TURBT, metastatic urothelial carcinoma), BPH, HLD, DVT (1999), TIA (2016, x 2), LIZBETH on CPAP, GERD, spinal stenosis, and hydronephrosis presenting for hematuria. Patient states that he has been following with urology for worsening creatinine and known hydronephrosis. ED evaluation reveals CBC without leukocytosis, H&H 11.6/35.2; PT/INR WNL; CMP creatinine 1.83, BUN 39, glucose 100; lactate 1.2 protein, blood, nitrites, LE, WBC and RBC without bacteria; CTAP mural wall thickening bladder neck (24 mm thickness), LAD, left double-J catheter in adequate place with residual hydroureteronephrosis, anorectal mural wall thickening to the sigmoid colon, calcular GB, hiatal hernia; EKG sinus tachycardia with LAFB at 101 bpm.; Provided with fentanyl 50 mcg IV and ceftriaxone 1 g IV in the ED. #Gross hematuria/ALESIA/Metastatic urothelial CA H/o prostate CA (dx 2021, s/p TURBT), BPH, known hydronephrosis bilaterally (s/p L ureteral stent 08/29/2024); Was having normal renal functions until September 2024 where it started to increase to 1.8-2.0. Currently awaiting bilateral nephrostomy tubes. Initially was scheduled to have bilateral stents placed but due to anatomy, unable to be completed. Does follow with oncology, is to "start on Enfortumab Vedotin/pembrolizumab from 10/30/24 (EV 1.2 mg/kg, D 1, 8, Pembrolizumab 200 mg IV q21d) x 9 cycles and then Pembrolizumab x 2 years" per urology note (10/29/2024). Hematuria with clots worsening day of arrival. Hand irrigation completed in ED, pt passing urine independently now. CBC w/ drop of hgb to 9.4 but recheck was 9.6, stable. BMP w/ downtrending creatinine to 1.66/BUN 29 UA w/ no bacteria CTAP mural wall thickening bladder neck (24 mm thickness), LAD, left double-J catheter in adequate place with residual hydroureteronephrosis, anorectal mural wall thickening to the sigmoid colon, calcular GB, hiatal hernia Urology consulted (discussed) - maintain cathether, titrate CBI as needed. manually irrigate for clots, retention & suprapubic pain. Recommending to continue antibiotics. Rocephin resumed Urology did recommend transfer to [place] for Nephrostomy tube placement given unsuccessful attempts @ right ureteral stent placement in August. - Discussed w/ urology team @ [place] who deem this a non urgent procedure given stable creatinine & mild hydronephrosis. Continue Tamsulosin Hold ASA/Plavix --> will have to weigh risks vs benefits prior to resuming. Oncology consulted --> plan to start systemic therapy upon discharge from hospital. Recommending IV Iron x 2-3 days inpatient. --> plan to start IV iron 10/31. #Diarrhea Ongoing x 1 month; Takes Imodium as needed for loose stool. CBC w/o leukocytosis. Lactate WNL CTAP: uniform circumferential anorectal mural wall thickening to distal sigmoid stool studies negative ~ 1 week ago prn Imodium #H/o TIA- x2 in 2016; On DAPT (ASA on //, Plavix) - HOLD while gross hematuria #HLD- Atorvastatin - continue #RANI- H/H 11.6/35.2 at admission; On ferrous sulfate (//), folic acid po - continue #GERD- Omeprazole - continue Dispo: Admit, med/tele VTE Prophylaxis: SCDs Discussed extensively w/ urology, [place] [facility], & family 10/30. Admission and Anticipated Discharge Date Admission Date: October 29, 2024 Brad Freeman was seen and examined this morning. He was resting in blood, w/ gross hematuria draining from his catheter at time of presentation. He had been given a dose of Diluadid prior to encounter so he was lethargic. He had reported no complaints at that time. Discussed w/ & daughter at bedside. Physical Exam Constitutional: WD/WN, vitals as above Eyes: PERRL, conjunctivae normal, anicteric sclerae Respiratory: normal respiratory effort, lungs clear to auscultation Cardiovascular: RRR, no murmur, no edema Gastrointestinal (Abdomen): normal bowel sounds, soft, nontender, no he patosplenomegaly Neurologic: PERRL, EOMI, accommodation nl, no face palsy, no dysarthria Results & Data Results & Data Vital Signs (Past 12 Hours) Vital Signs Temp Pulse Resp BP Pulse Ox O2 Del Method 10/30/24 14:56 36.6 C 94 H 20 132/78 90 Room Air 10/30/24 11:58 36.7 C 90 20 142/82 H 94 Room Air 10/30/24 07:49 36.7 C 96 H 20 147/79 H 92 Room Air PG Care Time/CCT Total # of Minutes Spent Total Time Spent with Patient: Total time spent is greater than 50% in coordination of care (as documented) at patient's floor/unit and/or counseling patient: Coding Level of Care Code 86221 SUB INP/OBS CARE 3/50MIN Diagnoses Gross hematuria R31.0 Acute kidney injury N17.9 Diarrhea R19.7
[2024-10-30] MEDS ORDERED: cefTRIAXone SODIUM 1,000 MG/50 ML BAG IV SCH (16:30)
--- NOTE | 2024-10-30 18:29 | Urology Progress Note ---
Date of Service October 30, 2024 Assessment & Plan (1) Gross hematuria: (2) Urothelial carcinoma of bladder: Plan After my initial evaluation I irrigated the catheter relatively aggressively with normal saline I irrigated approximately 30 cc of clot from the bladder and then had relatively clear urine I believe he is having a bladder spasm intermittently this is causing some of his clot and some change in the quality of his urine with CBI running This is not true clot obstruction Will plan to treat him with oxybutynin ER 10 mg daily starting immediately I hope this gradually helps to alleviate some of his spasms If he experiences a severe spasm, the best thing to do is to allow time for this to dissipate rather than try to irrigate or flush his catheter to fight the spasm Admission and Anticipated Discharge Date Admission Date: October 29, 2024 Subjective Called by nursing to come evaluate the patient secondary to inability to get CBI running appropriately They have irrigated clots on numerous occasions and continue to have obstruction and he is producing clot around the catheter Upon my initial evaluation the patient appeared to be resting very comfortably in catheter tubing was draining relatively clear urine CBI was running at a slow/moderate rate Results & Data Vital Signs (Past 12 Hours) Vital Signs Temp Pulse Resp BP Pulse Ox O2 Del Method 10/30/24 14:56 36.6 C 94 H 20 132/78 90 Room Air 10/30/24 11:58 36.7 C 90 20 142/82 H 94 Room Air 10/30/24 07:49 36.7 C 96 H 20 147/79 H 92 Room Air PG Care Time/CCT Total # of Minutes Spent Total Time Spent with Patient: Total time spent is greater than 50% in coordination of care (as documented) at patient's floor/unit and/or counseling patient: Coding Level of Care Code 87330 SUB INP/OBS CARE 2/35MIN Diagnoses Gross hematuria R31.0 Urothelial carcinoma of bladder C67.9
[2024-10-30] MEDS: OXYBUTYNIN CHLORIDE XL 5 MG TABCR PO SCH (19:12)
[2024-10-30] MEDS: cefTRIAXone SODIUM 2,000 MG/50 ML BAG IV SCH (19:13)
[2024-10-31] MEDS: HYDROmorphone INJ 1 MG/ML SYRINGE IV PRN (01:13)
[2024-10-31] MEDS: ACETAMINOPHEN 1,000 MG/100 ML VIAL IV PRN (07:15)
--- NOTE | 2024-10-31 08:19 | Urology Progress Note ---
<Statement entered by Kailash Fox MD - 10/31/24 15:44> 74-year-old male with metastatic bladder cancer. Recent cystoscopy could not identify the right ureteral orifice. With increasing creatinine, would recommend transfer for nephrostomy tube placement. Participated in a phone call with [facility] and will plan to accept for nephrostomy tube placement. Date of Service October 31, 2024 Assessment & Plan (1) Gross hematuria: (2) Hydronephrosis: (3) Urothelial carcinoma of bladder: (4) Acute kidney injury: Plan 74yo male with a hx of metastatic urothelial carcinoma who is admitted with gross hematuria and ALESIA. Recent history of TURBT and left ureteral stent placement on 08/29/[address] Fox which demonstrated high-grade urothelial carcinoma. Was then found to have right sided hydronephrosis and worsening creatinine possibly due to extrinsic compression developing of his right ureter. He underwent attempted right ureteral stent placement on 10/22/[address] Fox, however, the ureteral orifice could not be identified. An outpatient referral was placed to [facility] interventional radiology for consideration of nephrostomy tubes. He presented to the ED on 10/[address] abd pelvis on arrival demonstrated mural wall thickening encircling the bladder neck and encroaching upon both UVJ's reaching 24 mm in thickness, a left ureteral stent is in place with mild hydronephrosis and there is mild right sided hydronephrosis. Pt afebrile, normotensive but tachycardic at present Labs today reviewed -WBC 10.26, hemoglobin 9, creatinine up to 2.36 (was 1.6 yesterday) Urine culture preliminary Serratia marcescens He is on ceftriaxone Bo intact and draining light pink to light red urine with CBI on slow/moderate rate. Given the rise in his creatinine today as well as hydronephrosis and prior unsuccessful attempt to place a stent on the right side, would recommend transfer for nephrostomy tube placement. Maintain Bo catheter and monitor urine output. Continue CBI and titrate as needed. Okay to hand irrigate as needed for clots, retention, suprapubic pain. Continue supportive care, antibiotics, and pain management. Discussed with hospital team. Discussed with patient/family. Urology will follow. Admission and Anticipated Discharge Date Admission Date: October 29, 2024 Subjective Patient seen at bedside today. He is awake and resting in bed on arrival. No acute distress. Has required manual irrigation of his catheter by nursing staff for clots. Catheter is currently intact and draining light pink to light red urine with CBI on slow/moderate rate. He continues to have intermittent bladder spasms with some leakage around the catheter. No fevers. Review of Systems Constitutional: as per Subjective / HPI Genitourinary: + as per Subjective / HPI Physical Exam Constitutional: no acute distress Respiratory: no respiratory distress and no labored breathing Neurologic: awake Psychiatric: A+Ox3, euthymic affect Genitourinary: Bo intact Results & Data Vital Signs (Past 12 Hours) Vital Signs Temp Pulse Pulse Resp BP Pulse Ox Pulse Ox 10/31/24 07:44 36.7 C 113 H 16 100/65 91 10/31/24 07:25 111 H 10/31/24 07:25 10/31/24 03:25 36.7 C 109 H 16 116/74 90 10/30/24 23:29 96 H 10/30/24 22:50 36.9 C 109 H 18 119/81 91 10/30/24 21:57 97 10/30/24 21:48 111 H O2 Del Method O2 Del Method 10/31/24 07:44 Room Air 10/31/24 07:25 10/31/24 07:25 Room Air 10/31/24 03:25 Room Air 10/30/24 23:29 10/30/24 22:50 Room Air 10/30/24 21:57 Room Air 10/30/24 21:48 PG Care Time/CCT Total # of Minutes Spent Total Time Spent with Patient: Total time spent is greater than 50% in coordination of care (as documented) at patient's floor/unit and/or counseling patient: Coding Level of Care Code 58205 SUB INP/OBS CARE 2/35MIN Diagnoses Gross hematuria R31.0 Hydronephrosis N13.30 Urothelial carcinoma of bladder C67.9 Acute kidney injury N17.9
[2024-10-31 08:32] LABS: Hematocrit (blood only) 27.4 % (42.0-52.0); Hemoglobin 9.0 g/dl (14.0-18.0); Mean Corpuscular Hemoglobin 29.7 pg (25.0-34.0); Mean Corpuscular Volume 90.4 fL (80.0-100.0); Platelet Count 279 K/uL (130-400); RDW Standard Deviation 47.3 fL (36.4-46.3); Red Blood Count 3.03 M/uL (4.70-6.10); White Blood Count 10.26 K/ul (4.8-10.8)
[2024-10-31 08:51] LABS: Anion Gap 5.0 (3-11); Blood Urea Nitrogen 30.0 mg/dl (6-23); Calcium 8.5 mg/dl (8.6-10.3); Carbon Dioxide 26.0 mmol/L (21-32); Chloride 101.0 mmol/L (98-107); Creatinine Clr Calc Pharmacy 33.7 ml/min; Glucose 127.0 mg/dl (70-99(Fasting)); Potassium 5.3 mmol/L (3.5-5.1); Sodium 132.0 mmol/L (136-145)
[2024-10-31] MEDS: SODIUM CHLORIDE 0.9% 500 ML IV ONE (08:58)
[2024-10-31] MEDS: SODIUM CHLORIDE 0.9% 1,000 ML IV SCH (09:49)
[2024-10-31] MEDS: IRON SUCROSE 300 MG in SODIUM CHLORIDE 0.9% 250 ML IV ONE (09:53)
[2024-10-31] MEDS: ESCITALOPRAM OXALATE 10 MG TAB PO SCH (10:28)
--- NOTE | 2024-10-31 10:35 | Discharge Summary ---
Discharge Summary Date of Service October 31, 2024 Principal Dx & Hospital Course #1 = Principal Diagnosis (1) Gross hematuria: (2) Acute kidney injury: (3) Diarrhea: Plan 74-year-old male PMHx of PAD, prostate cancer (2021 s/p TURBT, metastatic urothelial carcinoma), BPH, HLD, DVT (1999), TIA (2015, x 2), LIZBETH on CPAP, GERD, spinal stenosis, and hydronephrosis presenting for hematuria. Patient states that he has been following with urology for worsening creatinine and known hydronephrosis. #Gross hematuria/ALESIA/Metastatic urothelial CA H/o prostate CA (dx 2021, s/p TURBT), BPH, known hydronephrosis bilaterally (s/p L ureteral stent 08/29/2024); Was having normal renal functions until September 2024 where it started to increase to 1.8-2.0. Currently awaiting bilateral nephrostomy tubes. Initially was scheduled to have bilateral stents placed but due to anatomy, unable to be completed. Does follow with oncology, is to "start on Enfortumab Vedotin/pembrolizumab from 10/30/24 x 9 cycles and then Pembrol izumab x 2 years" per urology note (10/29/2024). Hematuria with clots worsening day of arrival. CBC w/ drop of hgb to 9.0. BMP w/ rising creatinine of 2.36/BUN, K elevated at 5.3 UA w/ no bacteria CTAP mural wall thickening bladder neck (24 mm thickness), LAD, left double-J catheter in adequate place with residual hydroureteronephrosis, anorectal mural wall thickening to the sigmoid colon, calcular GB, hiatal hernia Urology consulted (discussed) - maintain catheter, titrate CBI as needed. manually irrigate for clots, retention & suprapubic pain. Recommending to continue antibiotics. Recommending transfer to tertiary care secondary to rising creatinine. Added Oxybutynin Rocephin resumed Continue Tamsulosin Hold ASA/Plavix --> will have to weigh risks vs benefits prior to resuming. Oncology consulted --> plan to start systemic therapy upon discharge from hospital. Recommending IV Iron x 2-3 days inpatient. [facility] did accept patient 10/31 #Diarrhea Ongoing x 1 month; Takes Imodium as needed for loose stool. CBC w/o leukocytosis. Lactate WNL CTAP: uniform circumferential anorectal mural wall thickening to distal sigmoid stool studies negative ~ 1 week ago prn Imodium #H/o TIA- x2 in 2015; On DAPT (ASA on //, Plavix) - HOLD while gross hematuria #HLD- Atorvastatin - continue #RANI- H/H 11.6/35.2 at admission; On ferrous sulfate (/W/), folic acid po - continue Recommending IV Iron infusions. s/p 1 IV Venofer 10/31. recommend additional 1-2 doses prior to dc per oncology. #GERD- Omeprazole - continue Discussed extensively w/ urology 10/31. Updated via phone 10/31. Transferred to [place] for Nephrosotomy tubes. Admission HPI Per Admitting Provider 74-year-old male PMHx of PAD, prostate cancer (2021 s/p TURBT, metastatic urothelial carcinoma), BPH, HLD, DVT (1999), TIA (2015, x 2), LIZBETH on CPAP, GERD, spinal stenosis, and hydronephrosis presenting for hematuria. Patient states that he has been following with urology for worsening creatinine and known h ydronephrosis. Patient states that he has not ongoing for coming and going episodes of hematuria for "months." States that he Ocu-Lube arrival he started to pass clots in his urine and was having bright red urine. He was not having any pain, but continues to feel as though he cannot urinate which has also been "going on for a while." States he has been able to control his bowel and bladder for the past month or so. Whenever he is sitting and stretches his legs out he is without control. Patient denies fever or chills. No pain at present, just some discomfort with sleeping. Denies palpitation, SOB, lightheadedness, dizziness, or syncope. He does not use urinary catheter at baseline. He had a stent placed in August by urology. He did have a port placed in his L chest on 10/24/2024 because he was scheduled to have chemo initiated on 10/30/2024. He does admit to some anxiety regarding his situation. Requesting something to help with his anxiety and to help him sleep. ED evaluation reveals CBC without leukocytosis, H&H 11.6/35.2; PT/INR WNL; CMP creatinine 1.83, BUN 39, glucose 100; lactate 1.2 protein, blood, nitrites, LE, WBC and RBC without bacteria; CTAP rmural wall thickening bladder neck (24 mm thickness), LAD, left double-J catheter in adequate place with residual hydroureteronephrosis, anorectal mural wall thickening to the sigmoid colon, calcular GB, hiatal hernia; EKG sinus tachycardia with LAFB at 101 bpm.; Provided with fentanyl 50 mcg IV and ceftriaxone 1 g IV in the ED. Please see Dr. Breaux's attestation for adjustments/additions to treatment plan. Discharge Exam Constitutional in moderate distress secondary to pain. Respiratory breathing non labored Cardiovascular tachycardic. Psychiatric A+Ox3, euthymic affect Discharge Plan Discharge Items Patient Disposition: Transfer Acute Care Hospital Reason For Visit: GROSS HEMATURIA, ALESIA Discharge Diagnosis: gross hematuria, ALESIA, urological obstruction Activity: Resume your previous activity Non-emergency contact: Primary Care Provider and Urologist Call non-emergency contact if: you have any medication questions, your symptoms worsen and you have a fever Follow-up/Referrals: Kailash Fox MD [Physician] - Pete Escobar MD [Primary Care Provider] - Diet: Regular Addtl Attending Provider Instructions: Mr. Aranda, You were recently hospitalized for ongoing bleeding with urination. You were evaluated by our urology team and have been accepted at [facility] for nephrosotomy tube placement. Best of luck! Mila Gardner PA-C Pending Studies at Discharge: No Stand-Alone Forms: My [facility] Skilled Items Patient informed of condition?: Yes DNR: No Discharge Level of Care: Other Communicable Disease: No Discharge Prognosis: Stable Lines: Peripheral IV Urinary Catheter: Yes Medications and DC Order Prescriptions: New oxybutynin chloride 5 mg Tablet Extended Release 24hr 5 mg PO QAM Qty: 10 0RF escitalopram oxalate 10 mg Tablet 10 mg PO QAM Qty: 7 0RF Continued tamsulosin 0.4 mg capsule 0.8 mg PO HS ferrous sulfate [FeroSul] 325 mg (65 mg iron) tablet 325 mg PO 3XWK Patient Comments: M/W/F atorvastatin [Lipitor] 40 mg Tablet 40 mg PO HS cyanocobalamin (vitamin B-12) [Vitamin B-12] 1,000 mcg Tablet 1,000 mcg PO QPM omeprazole 40 mg Capsule,Delayed Release(Dr/Ec) 40 mg PO QAM folic acid 1 mg Tablet 1 mg PO QPM cholecalciferol (vitamin D3) 25 mcg (1,000 unit) Tablet 25 mcg PO HS calcium carbonate 500 mg calcium (1,250 mg) Tablet 500 mg PO HS magnesium aspart,citrate,oxide 400 mg magnesium Capsule 400 mg PO HS loperamide [Imodium] 2 mg Capsule 2 mg PO BID PRN (Reason: Loose Stool) Rx Instructions: administer after each loose stool until symptoms controlled; do not exceed 8 mg per 24 hrs vibegron 75 mg tablet 0 mg PO DAILY Patient Comments: spouse/patient arent sure of this medication Held clopidogrel [Plavix] 75 mg Tablet 75 mg PO QAM Hold Instructions: Resume on 11/08/24. after discussed w/ PCP aspirin 81 mg Tablet,Delayed Release (Dr/Ec) 81 mg PO UD Hold Instructions: Resume on 11/08/24. after discussed w/ PCP Rx Instructions: M/W/F Discharge Orders: Discharge Order (Routine); Ordered 10/31/24 Ordered By: Mila Gardner Admission Data Admit Date/Time: 10/29/24 19:59 Attending Provider: Jeff Dumas Admit Provider: Sahra Breaux Primary Care Provider: Pete Escobar Other Providers: Sahra Breaux; Kailash Fox; Sharona Figueredo; Kieran Shah; Pete Gonzalez; Che Farris; Francie Goss; Jason Milian; Sally Jimenez; Calixto,Najma Attending Hospital Stay Data Consultations 10/29/24 19:19 ED Decision to Admit Stat 10/29/24 21:57 Consult Oncology Routine Consult Urology Routine Diagnostic Imagining Performed 10/29/24 14:33 CT abd pelvis IV con only Stat Pending Results Patient Have Any Pending Studies at Discharge: No Discharge Instructions Given to Patient (Per Discharging Provider) Mr. Aranda, Elie were recently hospitalized for ongoing bleeding with urination. You were evaluated by our urology team and have been accepted at [facility] for nephrosotomy tube placement. Best of luck! Mila Gardner PA-C Total Time Total Time Spent Total Time Spent (In Minutes): 65 Total Time Includes: Examination of the Patient, Discharge Planning, Medication Reconciliation and Communication With Other Providers Coding Level of Care Code 00454 INP/OBS DISCH >30 MIN Diagnoses Gross hematuria R31.0 Acute kidney injury N17.9 Diarrhea R19.7
[2024-10-31 11:45] VITALS: BP 127/75; RESP 28; TEMP 97.7; O2SAT 93
[2024-10-31 14:34] VITALS: PULSE 113
== END 2024-10-31 19:38 | disposition short-term general hospital (02) | DRG 687 ==
LOC: ED 14:03 → SUATTDRO 19:59 → 2N 19:59

== ENCOUNTER 2024-11-02 21:40 | Inpatient (IN) ==
--- NOTE | 2024-11-02 22:42 | History & Physical Report ---
Date of Service November 02, 2024 Assessment & Plan (1) Gross hematuria: (2) Hydronephrosis: (3) Acute kidney injury: (4) Urothelial carcinoma of bladder: (5) Neurogenic 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 spinal stenosis: (6) GERD (gastroesophageal reflux disease): (7) Hyperlipidemia: (8) Sleep apnea: (9) Transient ischemic attack (TIA): Plan 74 yo male PMHx Bladder CA, prostate CA (s/p TURP 2021), lumbar spinal stenosis s/p surgical intervention, GERD, HLD, LIZBETH on CPAP, DVT (1999) presents as a direct admit from [facility] s/p bilateral nephrostomy tube placement. #Gross hematuria/ALESIA/Metastatic urothelial CA H/o prostate CA (dx 2021, s/p TURP), BPH, known hydronephrosis bilaterally (s/p L ureteral stent 08/29/2024) S/p bilateral nephrostomy tube placement at [facility] Hb 7.4 on admission up from 7.0 at discharge from [place] - continue to trend Creatinine 1.35 at admission down from peak of 3.55 at [place] - continue to trend Given recent surgical intervention and knight in place will continue prophylactic ceftriaxone Continue oxybutynin and tamsulosin Continue CBI, manual irrigation as needed Urology consulted for ongoing management Oncology consulted - seen by Dr. Jimenez prior to transfer to [place] Continue to hold ASA/Plavix given gross hematuria #Intermittent Diarrhea/Constipation Was having diarrhea ongoing for one month, however now with constipation CT prior to transfer with circumferential anorectal mural wall thickening Miralax q6h PRN #H/o TIA- hold ASA/Plavix in setting of gross hematuria, restart when resolved #HLD- Atorvastatin - continue #Iron Deficiency Anemia Ferrous sulfate 325 3x weekly Venofer infusion on 10/31, oncology recommending additional 2 doses #GERD Continue omeprazole FENGI: regular diet Code status: full code DVT prophylaxis: SCDs, holding chemical in setting of hematuria Isolation: none Disposition: PCU Admission and Anticipated Discharge Date Admission Date: November 02, 2024 History of Present Illness Primary Care Provider: Pete Escobar MD 74 yo male PMHx Bladder CA, prostate CA (s/p TURP 2021), lumbar spinal stenosis s/p surgical intervention, GERD, HLD, LIZBETH on CPAP, DVT (1999) presents as a direct admit from [facility] s/p bilateral nephrostomy tube placement. Recently admitted 10/29/24 for hematuria in setting of metastatic urothelial carcinoma. Had known hydronephrosis at that time with R ureteral stent placed. Planned for left as well but was unable to be placed 2/2 anatomy associated with bladder CA. 3-way catheter was placed with CBI. Given rising creatinine during that hospitalization decision was made to transfer for b/l nephrostomy tube placement. This was completed at [facility] without complication and he was transferred back to [facility]. At the time of admission pt is in NAD, describes fairly well controlled surgical site pain, chronic back pain. R nephrostomy tube draining light colored urine. L nephrostomy tube with pollo hematuria. Knight catheter with hematuria as well. Labs from [facility] day of discharge significant for improved creatinine to 1.48 from high of 3.55 during that hospitalization. Hb was 7.0 at time of discharge. Pt is planned to start chemotherapy following discharge. Allergies Allergy/AdvReac Type Severity Reaction Status Date / Time No Known Drug Allergies Allergy Verified 10/29/24 12:56 Home Medications Medication Instructions Recorded Confirmed Type aspirin 81 mg tablet,delayed 81 mg PO UD 08/20/20 10/29/24 History release atorvastatin 40 mg tablet (Lipitor) 40 mg PO HS 08/20/20 10/29/24 History cholecalciferol (vitamin D3) 25 25 mcg PO HS 08/20/20 10/29/24 History mcg (1,000 unit) tablet clopidogrel 75 mg tablet (Plavix) 75 mg PO QAM 08/20/20 10/29/24 History cyanocobalamin (vitamin B-12) 1,000 mcg PO QPM 08/20/20 10/29/24 History 1,000 mcg tablet (Vitamin B-12) folic acid 1 mg tablet 1 mg PO QPM 08/20/20 10/29/24 History omeprazole 40 mg capsule,delayed 40 mg PO QAM 08/20/20 10/29/24 History release tamsulosin 0.4 mg capsule 0.8 mg PO HS 08/21/24 10/29/24 History ferrous sulfate 325 mg (65 mg 325 mg PO 3XWK 10/14/24 10/29/24 History iron) tablet (FeroSul) calcium carbonate 500 mg PO HS 10/15/24 10/29/24 History magnesium aspart,citrate,oxide 400 mg PO HS 10/15/24 10/29/24 History loperamide 2 mg capsule 2 mg PO BID PRN Loose Stool 10/29/24 10/29/24 History vibegron 75 mg tablet 0 mg PO DAILY 10/29/24 10/29/24 History escitalopram oxalate 10 mg tablet 10 mg PO QAM #7 tabs 10/31/24 Rx oxybutynin chloride 5 mg 5 mg PO QAM #10 tabs 10/31/24 Rx tablet,extended release 24 hr Past Med/Surg History Problem List (Updated 11/01/24 @ 19:40 by Warner Borjas DO) Diarrhea Gross hematuria (Acute) Iron deficiency anemia Acute kidney injury (Acute) Hydronephrosis (Acute) Urothelial carcinoma of bladder (Acute) History of bladder cancer Neurogenic 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 spinal stenosis BPH (benign prostatic hyperplasia) GERD (gastroesophageal reflux disease) controlled Hyperlipidemia Sleep apnea CPAP Transient ischemic attack (TIA) x2 (2015)- on plavix Medical History Hydronephrosis creat worsening; pt saw urology and had procedure 10/22/24 Anemia heme/onc following On anticoagulant therapy Hx of motion sickness PONV (postoperative nausea and vomiting) Prostate cancer dx in 2021 - monitoring, no treatment Bladder cancer initially dx 2021,s/p TURBT; now with metastatic urothelial carcinoma: currently undergoing chemo tx History of COVID-2019 - no hospitalization Hyperlipidemia Hx of deep venous thrombosis remote hx, prior to 1999 (s/p surgery) - no issues since treated with anticoagulant. History of TIA (transient ischemic attack) x2 (2015)- on plavix BPH (benign prostatic hyperplasia) Sleep apnea cpap GERD (gastroesophageal reflux disease) Spinal stenosis Hiatal hernia Surgical History H/O insertion of central venous access port (10/24/24) Insertion of Access Port with Fluoroscopy(Left) - Sky Mojica DO History of cystoscopy 10/22/24; 'no major complications' per anesthesia progress note S/P trigger finger release S/P cataract extraction S/P ureteral stent placement left (early august 2024) H/O transurethral resection of bladder tumor (TURBT) August 2024 S/P spinal surgery L3/[address] 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) History of arthroscopy R/L rotator cuff repairs (Rx1, Lx2) History of herniorrhaphy Right inguinal Status post repair of hydrocele History of esophagogastroduodenoscopy (EGD) History of colonoscopy Family History Father Cancer Sister Cancer Other Hypertension No family history of adverse response to anesthesia Social History Smoking Status: Never smoker Second Hand Exposure: No; Do You Dip or Chew Tobacco: No; Hx Alcohol Use: No Hx Substance Use: No Preferred Language: Welsh Communication Ability: Effective Arranging Funeral Director Required: No Beliefs That Will Affect Care: None marital status: Current Living Situation: Spouse Current Living Situation Comment: home with and grandson current occupational status: retired How many Children do You have: 1 Feels Safe at Home: Yes Safety Concerns: Feels Safe At This Time during the past year weight has: remained stable Assistive Devices: Cane and Glasses Review of Systems Review of Systems: reviewed, per HPI Physical Exam Physical Exam: Constitutional: well-appearing, no acute distress HEENT: NCAT, no conjunctival injection CV: well perfused, RRR Resp: no increased work of breathing GI: nondistended MSK: no gross deformities appreciated : b/l nephrostomy tubes in place. R draining light yellow urine, L draining bright red blood, knight catheter in place draining red urine Skin: warm, dry, no rash appreciated Neuro: alert, oriented, no focal neurologic deficit appreciated Results & Data Results & Data Vital Signs (Past 12 Hours) Vital Signs Temp Pulse Resp BP Pulse Ox O2 Del Method 11/02/24 21:54 36.6 C 96 H 18 126/82 94 Room Air Code Status & VTE Plan VTE Prophylaxis Plan VTE Prophylaxis will be ordered: Yes Supervising Physician Co-Signing Physician Notes Attending addendum: I have physically seen this patient, have supervised the medical residents activities, and agree with the H&P unless as otherwise noted. Assessment and Plan: The patient is a 74-year-old male with a past medical history including bladder cancer, prostate cancer status post TURP 2021, lumbar spinal stenosis status postsurgical intervention, GERD, hyperlipidemia, LIZBETH on CPAP, DVT in 1999. He was referred to [facility] for bilateral nephrostomy tube placement, and returns this evening for continuing medical care. Gross hematuria/metastatic ureteral urothelial cancer/status post bilateral nephrostomy tube placement at [facility]- Patient returns this evening for ongoing medical treatment History of prostate cancer diagnosed 2021 status post TURP, bilateral hydronephrosis status post left ureteral stent 08/29/2024. Creatinine 1.35, improved from peak of 3.[address] [facility] Follow serial laboratories every morning Continue ceftriaxone 2 g IV daily Continue oxybutynin and tamsulosin Continue CBI, with manual irrigation as needed Consult urology Dr. Fox Consult oncology, Dr. Jimenez had seen patient prior to [place] transfer Continue to hold aspirin and Plavix History of TIA- Temporarily hold aspirin and Plavix in the setting of gross hematuria, and restart when hematuria resolved Intermittent diarrhea/constipation - MiraLAX every 6 hours as needed GERD- Continue omeprazole/pantoprazole Iron deficiency anemia- Venofer as directed by hematology/oncology Resident Activity Tracking Resident Involvement: Resident Care Provided Care Provided: Adult [facility] Medicine
[2024-11-02] MEDS ORDERED: ALUMINUM/MAGNESIUM SUSP 30 ML UDC PO PRN (22:48)
[2024-11-02] MEDS ORDERED: MELATONIN 3 MG TAB PO PRN (22:48)
[2024-11-02] MEDS ORDERED: ONDANSETRON INJ 2 MG/ML 2 ML VIAL IV PRN (22:48)
[2024-11-02] MEDS ORDERED: MAGNESIUM HYDROXIDE SUSP 30 ML UDC PO PRN (22:48)
[2024-11-02] MEDS ORDERED: POLYETHYLENE (MIRALAX) 17 GM PACK PO PRN (22:48)
[2024-11-02 23:40] LABS: Hematocrit (blood only) 22.9 % (42.0-52.0); Hemoglobin 7.4 g/dl (14.0-18.0); Mean Corpuscular Hemoglobin 30.0 pg (25.0-34.0); Mean Corpuscular Volume 92.7 fL (80.0-100.0); Platelet Count 305 K/uL (130-400); RDW Standard Deviation 49.9 fL (36.4-46.3); Red Blood Count 2.47 M/uL (4.70-6.10); White Blood Count 8.60 K/ul (4.8-10.8)
[2024-11-02 23:47] LABS: Immature Granulocytes # (auto) 0.02 K/uL (0.01-0.20); Immature Granulocytes % (auto) 0.2 %; Polychromasia 1+
[2024-11-02 23:52] LABS: Alanine Aminotransferase 6.0 U/L (7-52); Albumin Globulin Ratio 1.1 (0.9-2); Alkaline Phosphatase 50.0 U/L (34-104); Anion Gap 2.0 (3-11); Bilirubin,Total 0.2 mg/dl (0.2-1.0); Blood Urea Nitrogen 25.0 mg/dl (6-23); Calcium 8.0 mg/dl (8.6-10.3); Carbon Dioxide 26.0 mmol/L (21-32); Chloride 107.0 mmol/L (98-107); Creatinine Clr Calc Pharmacy 60.1 ml/min; Globulin 2.5 gm/dl (2.5-4.0); Glucose 114.0 mg/dl (70-99(Fasting)); Potassium 4.7 mmol/L (3.5-5.1); Sodium 135.0 mmol/L (136-145); Total Protein 5.3 gm/dl (6.0-8.3)
[2024-11-02] MEDS: HEPARIN 100 UNIT/ML 5ML FLUSH FLUSH PRN (23:57)
[2024-11-02 23:59] LABS: INR 1.0 (0.9-1.1); Prothrombin Time 10.5 Seconds (9.0-12.0)
--- NOTE | 2024-11-03 03:22 | Billing Data ---
Date of Service November 03, 2024 Coding Level of Care Code 75966 INT INP/OBS CARE
[2024-11-03 08:22] LABS: Hematocrit (blood only) 22.3 % (42.0-52.0); Hemoglobin 7.2 g/dl (14.0-18.0); Mean Corpuscular Hemoglobin 29.8 pg (25.0-34.0); Mean Corpuscular Volume 92.1 fL (80.0-100.0); Platelet Count 294 K/uL (130-400); RDW Standard Deviation 49.1 fL (36.4-46.3); Red Blood Count 2.42 M/uL (4.70-6.10); White Blood Count 8.00 K/ul (4.8-10.8)
[2024-11-03] MEDS: ACETAMINOPHEN 325 MG TAB PO PRN (08:39)
[2024-11-03] MEDS: OXYBUTYNIN CHLORIDE XL 5 MG TABCR PO SCH (08:40)
[2024-11-03] MEDS: cefTRIAXone SODIUM 2,000 MG/50 ML BAG IV SCH (08:40)
[2024-11-03] MEDS: ESCITALOPRAM OXALATE 10 MG TAB PO SCH (08:40)
[2024-11-03 08:47] LABS: Anion Gap 2.0 (3-11); Blood Urea Nitrogen 20.0 mg/dl (6-23); Calcium 8.1 mg/dl (8.6-10.3); Carbon Dioxide 28.0 mmol/L (21-32); Chloride 107.0 mmol/L (98-107); Creatinine Clr Calc Pharmacy 71.5 ml/min; Glucose 104.0 mg/dl (70-99(Fasting)); Potassium 4.2 mmol/L (3.5-5.1); Sodium 137.0 mmol/L (136-145)
[2024-11-03] MEDS: IRON SUCROSE 300 MG in SODIUM CHLORIDE 0.9% 250 ML IV ONE (09:40)
--- NOTE | 2024-11-03 10:00 | Urology Consultation ---
Date of Consultation November 03, 2024 Assessment & Plan (1) Gross hematuria: Hematuria seems to be improving. Hemoglobin is on the low side but remains stable. Hopefully diverting urine away from the bladder will help with hematuria. Could also potentially remove his Bo catheter and stent and rely on just the nephrostomy tubes. (2) Acute kidney injury: Renal function has improved s/p bilateral nephrostomy tube placement. We will plan to maintain nephrostomy tubes for now. (3) Urothelial carcinoma of bladder: Known metastatic bladder cancer. He is scheduled to start systemic chemotherapy (enfortumab vedotin and pembrolizumab) on discharge from the hospital. He tells me he has an appointment on 11/04/2024, hopefully he will be able to be discharged prior to that visit. (4) Testicular mass: I am suspicious that the firm area on the right testis is a metastatic deposit from bladder cancer. We will plan to get a scrotal ultrasound to evaluate this area and see if it correlates with his PSMA PET scan. History of Present Illness Reason for Consultation: Metastatic bladder cancer, bilateral nephrostomy tubes Attending Physician: Jeff Dumas History of Present Illness This is a 74 year old male with history of metastatic urothelial carcinoma. He was recently admitted with gross hematuria and worsening creatinine. Previous attempt at right ureteral stent placement have been unsuccessful due to tumor burden within the bladder. Was transferred to [facility], where bilateral nephrostomy tubes were placed. He was subsequently returned to [facility]. Today he reports that he is feeling much better and not having any more of the flank pain. Bo catheter remains in place. He required hand irrigation at [place] but denies any other surgical procedures. Hematuria has been clearing. He denies any fevers or chills. During the transfer he noted a firm area on the right testicle that he has not noticed before. Labs reviewed: 11/03/2024: Hemoglobin 7.2 (similar to 7.4 from 11/02) Creatinine 1.14 (down from 2.36 prior to transfer for nephrostomy tubes.) Urine culture from 10/29/2024 with Serratia marcescens. I reviewed his prior PSMA PET scan which does appear to show some tracer uptake in the right hemiscrotum which likely represents metastatic disease. Allergies Allergy/AdvReac Type Severity Reaction Status Date / Time No Known Drug Allergies Allergy Verified 10/29/24 12:56 Home Medications Medication Instructions Recorded Confirmed Type aspirin 81 mg tablet,delayed 81 mg PO UD 08/20/20 10/29/24 History release atorvastatin 40 mg tablet (Lipitor) 40 mg PO HS 08/20/20 10/29/24 History cholecalciferol (vitamin D3) 25 25 mcg PO HS 08/20/20 10/29/24 History mcg (1,000 unit) tablet clopidogrel 75 mg tablet (Plavix) 75 mg PO QAM 08/20/20 10/29/24 History cyanocobalamin (vitamin B-12) 1,000 mcg PO QPM 08/20/20 10/29/24 History 1,000 mcg tablet (Vitamin B-12) folic acid 1 mg tablet 1 mg PO QPM 08/20/20 10/29/24 History omeprazole 40 mg capsule,delayed 40 mg PO QAM 08/20/20 10/29/24 History release tamsulosin 0.4 mg capsule 0.8 mg PO HS 08/21/24 10/29/24 History ferrous sulfate 325 mg (65 mg 325 mg PO 3XWK 10/14/24 10/29/24 History iron) tablet (FeroSul) calcium carbonate 500 mg PO HS 10/15/24 10/29/24 History magnesium aspart,citrate,oxide 400 mg PO HS 10/15/24 10/29/24 History loperamide 2 mg capsule 2 mg PO BID PRN Loose Stool 10/29/24 10/29/24 History vibegron 75 mg tablet 0 mg PO DAILY 10/29/24 10/29/24 History escitalopram oxalate 10 mg tablet 10 mg PO QAM #7 tabs 10/31/24 Rx oxybutynin chloride 5 mg 5 mg PO QAM #10 tabs 10/31/24 Rx tablet,extended release 24 hr Patient History Medical History Hydronephrosis creat worsening; pt saw urology and had procedure 10/22/24 Anemia heme/onc following On anticoagulant therapy Hx of motion sickness PONV (postoperative nausea and vomiting) Prostate cancer dx in 2021 - monitoring, no treatment Bladder cancer initially dx 2021,s/p TURBT; now with metastatic urothelial carcinoma: currently undergoing chemo tx History of COVID-2019 - no hospitalization Hyperlipidemia Hx of deep venous thrombosis remote hx, prior to 1999 (s/p surgery) - no issues since treated with anticoagulant. History of TIA (transient ischemic attack) x2 (2015)- on plavix BPH (benign prostatic hyperplasia) Sleep apnea cpap GERD (gastroesophageal reflux disease) Spinal stenosis Hiatal hernia Surgical History H/O insertion of central venous access port (10/24/24) Insertion of Access Port with Fluoroscopy(Left) - Sky Mojica, DO History of cystoscopy 10/22/24; 'no major complications' per anesthesia progress note S/P trigger finger release S/P cataract extraction S/P ureteral stent placement left (early august 2024) H/O transurethral resection of bladder tumor (TURBT) August 2024 S/P spinal surgery L3/[address] 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) History of arthroscopy R/L rotator cuff repairs (Rx1, Lx2) History of herniorrhaphy Right inguinal Status post repair of hydrocele History of esophagogastroduodenoscopy (EGD) History of colonoscopy Family History Father Cancer Sister Cancer Other Hypertension No family history of adverse response to anesthesia Social History Smoking Status: Never smoker Second Hand Exposure: No; Do You Dip or Chew Tobacco: No; Hx Alcohol Use: No Hx Substance Use: No Preferred Language: Estonian Communication Ability: Effective Regional Marketing Manager Required: No Beliefs That Will Affect Care: None marital status: Current Living Situation: Spouse Current Living Situation Comment: home with and grandson current occupational status: retired How many Children do You have: 1 Feels Safe at Home: Yes during the past year weight has: remained stable Assistive Devices: Cane and Glasses Review of Systems Review of Systems: 10 point review of systems negative exce pt for otherwise indicated. Physical Exam Physical Exam: Resting in bed, NAD Constitutional: well developed and well nourished Eyes: + anicteric sclerae; pupils not irregula r Respiratory: normal respiratory effort; no respiratory distress, does not use accessory muscles and no cough Cardiovascular: well perfused Gastrointestinal (Abdomen): Inspection/Auscultation: abdomen normal to inspection; abdomen not distended Musculoskeletal: Extremities: extremities normal to inspection Skin: normal turgor; no rashes and no lesions Neurologic: moves all extremities and awake Psychiatric: Orientation: alert and oriented x 3 Genitourinary: Bilateral nephrostomy tubes in place draining pink-tinged urine Bo catheter in place draining pink-tinged urine Bilateral testicles descended within the scrotal sac. Firm area on the posterior aspect of the right testis. Results & Data Vital Signs (Past 12 Hours) Vital Signs Temp Pulse Pulse Resp BP Pulse Ox O2 Del Method 11/03/24 07:50 36.7 C 96 H 21 140/87 92 Nasal Cannula 11/03/24 02:07 36.6 C 98 H 22 109/68 91 Nasal Cannula 11/02/24 22:41 99 H 11/02/24 21:54 36.6 C 96 H 18 126/82 94 Room Air O2 Flow Rate 11/03/24 07:50 1 11/03/24 02:07 1 11/02/24 22:41 11/02/24 21:54 PG Care Time/CCT Total # of Minutes Spent Total Time Spent with Patient: Total time spent is greater than 50% in coordination of care (as documented) at patient's floor/unit and/or counseling patient: Coding Level of Care Code 02570 INT INP/OBS CARE 2/55MIN Diagnoses Gross hematuria R31.0 Acute kidney injury N17.9 Urothelial carcinoma of bladder C67.9 Testicular mass N50.89
--- NOTE | 2024-11-03 11:33 | Ultrasound Report ---
US scrotum/testicle CLINICAL HISTORY: 74 years-old Male with testicular mass. Palpable abnormality of the scrotum COMPARISON STUDY: CT abdomen and pelvis 10/29/2024, PET/CT 10-18 TECHNIQUE: Real-time, grayscale, and color Doppler sonography of the testes and scrotum is performed. Images are reviewed in the transverse and longitudinal planes. FINDINGS: RIGHT HEMISCROTUM: The right testis measures 4.7 x 2.6 x 3.9 cm. There is an ill-defined ovoid mass w hich is mostly isoechoic to the adjacent parenchyma and is hyperemic overall measuring 2.7 x 2.4 x 2. 3 cm. Arterial inflow is present within the right testicle. The right epididymal head appears normal. No varicocele or hydrocele is identified. LEFT HEMISCROTUM: The left testis measures 4.0 x 1.8 x 2.2 cm and the parenchyma appears unremarkable . No intratesticular mass is seen. Normal-appearing arterial inflow is present within the left testic le. The left epididymal head appears normal. No varicocele or hydrocele is identified. IMPRESSION: 1. 2.7 cm right testicular mass suggestive of malignancy. Follow-up with urology is needed. 2. No testicular torsion or hydrocele. ACT 112: Positive. There are findings on this exam that require communication between the performing entity and the patient following Patient Test Result Information Act ([place] Act 112) guidelines. The above report was generated using voice recognition software. It may contain grammatical, syntax o r spelling errors. Electronically signed by: Misael Dan M.D. 11/03/2024 11:30 AM
[2024-11-03 13:24] LABS: Hematocrit (blood only) 21.6 % (42.0-52.0); Hemoglobin 6.9 g/dl (14.0-18.0)
[2024-11-03] MEDS ORDERED: SODIUM CHLORIDE 0.9% 100 ML IV PRN (13:46)
--- NOTE | 2024-11-03 13:49 | Hospitalist Progress Note ---
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 #Gross hematuria/ALESIA/Metastatic urothelial CA H/o prostate CA (dx 2021, s/p TURP), BPH, known hydronephrosis bilaterally (s/p L ureteral stent 08/29/2024) S/p bilateral nephrostomy tube placement at [facility] 11/01 hgb dropped to 6.9, consent form signed - to transfuse 1 unit PRBCs. Creatinine now WNL. Given recent surgical intervention and knight in place will continue prophylactic ceftriaxone Continue oxybutynin and tamsulosin Urology consulted --> ok to remove Knight catheter. Oncology consulted - seen by Dr. Jimenez prior to transfer to [place] --> will need to discuss whether chemotherapy can be started tomorrow or not. Continue to hold ASA/Plavix given gross hematuria PT/OT consulted given weakness in setting of acute blood loss + cancer. #Intermittent Diarrhea/Constipation Was having diarrhea ongoing for one month, however now with constipation CT prior to transfer with circumferential anorectal mural wall thickening Miralax q6h PRN #H/o TIA- hold ASA/Plavix in setting of gross hematuria, restart when resolved #HLD- Atorvastatin - continue #Iron Deficiency Anemia Ferrous sulfate 325 3x weekly Venofer infusion on 10/31 & 11/03, reassess H&H in AM prior to ordering 3rd dose. #GERD Continue omeprazole Code status: full code DVT prophylaxis: SCDs, holding chemical in setting of hematuria Family updated at bedside 11/03, Discussed w/ Dr. Fox 11/03 Admission and Anticipated Discharge Date Admission Date: November 02, 2024 Brad Ramirez was seen and examined this morning w/ his family at bedside. James reports that he does feel more comfortable following his nephrostomy tube insertion. He reports he does feel tired & weak. States he is unable to get out of bed. Family reports their goal is for him to get chemotherapy tomorrow. Physical Exam Constitutional: no acute distress Respiratory: normal respiratory effort Neurologic: PERRL, EOMI, accommodation nl, no face palsy, no dysarthria Psychiatric: A+Ox3, euthymic affect Genitourinary: b/l nephro tubes in place draining pink tinged urine. Knight in place draining pink tinged urine. Results & Data Results & Data Vital Signs (Past 12 Hours) Vital Signs Temp Pulse Resp BP Pulse Ox O2 Del Method O2 Flow Rate 11/03/24 10:47 36.7 C 96 H 19 115/53 L 91 Room Air 11/03/24 07:50 36.7 C 96 H 21 140/87 92 Nasal Cannula 1 11/03/24 02:07 36.6 C 98 H 22 109/68 91 Nasal Cannula 1 PG Care Time/CCT Total # of Minutes Spent Total Time Spent with Patient: Total time spent is greater than 50% in coordination of care (as documented) at patient's floor/unit and/or counseling patient: Coding Level of Care Code 99530 SUB INP/OBS CARE 3/50MIN Diagnoses Gross hematuria R31.0 Hydronephrosis N13.30 Acute kidney injury N17.9 Urothelial carcinoma of bladder C67.9 Neurogenic 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 spinal stenosis M48.062 GERD (gastroesophageal reflux disease) K21.9 Hyperlipidemia E78.5 Sleep apnea G47.30 Transient ischemic attack (TIA) G45.9
[2024-11-03] MEDS: SIMETHICONE 80 MG CHEW PO PRN (19:48)
[2024-11-03] MEDS: CHOLECALCIFEROL 25 MCG (1000 UNITS) TAB PO SCH (20:17)
[2024-11-03] MEDS: TAMSULOSIN HCL 0.4 MG CAP PO SCH (20:17)
[2024-11-03] MEDS: MAGNESIUM OXIDE 400 MG TAB PO SCH (20:18)
[2024-11-03] MEDS: CYANOCOBALAMIN (B-12) 500 MCG TABLET PO SCH (20:18)
[2024-11-03] MEDS: ATORVASTATIN 40 MG TAB PO SCH (20:18)
[2024-11-03] MEDS: CALCIUM CARBONATE 1250MG TAB PO SCH (20:18)
[2024-11-03] MEDS: FOLIC ACID 1 MG TAB PO SCH (20:18)
[2024-11-04] MEDS: LOPERAMIDE HCL 2 MG CAP PO PRN (06:22)
[2024-11-04 09:57] LABS: Anion Gap 6.0 (3-11); Blood Urea Nitrogen 17.0 mg/dl (6-23); Calcium 8.3 mg/dl (8.6-10.3); Carbon Dioxide 26.0 mmol/L (21-32); Chloride 106.0 mmol/L (98-107); Creatinine Clr Calc Pharmacy 79.6 ml/min; Glucose 128.0 mg/dl (70-99(Fasting)); Potassium 4.2 mmol/L (3.5-5.1); Sodium 138.0 mmol/L (136-145)
[2024-11-04 09:59] LABS: Hematocrit (blood only) 24.9 % (42.0-52.0); Hemoglobin 8.3 g/dl (14.0-18.0); Mean Corpuscular Hemoglobin 30.4 pg (25.0-34.0); Mean Corpuscular Volume 91.2 fL (80.0-100.0); Platelet Count 339 K/uL (130-400); RDW Standard Deviation 50.7 fL (36.4-46.3); Red Blood Count 2.73 M/uL (4.70-6.10); White Blood Count 8.49 K/ul (4.8-10.8)
--- NOTE | 2024-11-04 11:28 | Hospitalist Progress Note ---
Date of Service November 04, 2024 Assessment & Plan (1) Gross hematuria: (2) Hydronephrosis: (3) Acute kidney injury: (4) Urothelial carcinoma of bladder: (5) Neurogenic 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 spinal stenosis: (6) GERD (gastroesophageal reflux disease): (7) Hyperlipidemia: (8) Sleep apnea: (9) Transient ischemic attack (TIA): Plan 74 yo male PMHx Bladder CA, prostate CA (s/p TURP 2021), lumbar spinal stenosis s/p surgical intervention, GERD, HLD, LIZBETH on CPAP, DVT (1999) presents as a direct admit from [facility] s/p bilateral nephrostomy tube placement. #Gross hematuria/ALESIA/Metastatic urothelial CA H/o prostate CA (dx 2021, s/p TURP), BPH, known hydronephrosis bilaterally (s/p L ureteral stent 08/29/2024) S/p bilateral nephrostomy tube placement at [facility] 11/01 hgb dropped to 6.9, consent form signed - to transfuse 1 unit PRBCs on 11/03. - hgb now stable at 8.3. Creatinine now WNL. On Rocephin --> likely does not need abx on dc. Continue oxybutynin and tamsulosin Urology consulted --> ok to remove Bo catheter. did order scrotal US. Scrotal US 11/03: 2.7cm right testicular mass suggestive of malignancy. no torsion or hydrocele. Discussed w/ Dr. Jimenez 11/04 --> immunotherapy can be started 24 hours after discharge. Discussed w/ patient & - plan to be discharged 11/05 and start immunotherapy 11/[address] Jimenez also notes she can manage the anemia outpatient as well. Continue to hold ASA/Plavix given gross hematuria PT/OT consulted given weakness in setting of acute blood loss + cancer. #Intermittent Diarrhea/Constipation Was having diarrhea ongoing for one month, however now with constipation CT prior to transfer with circumferential anorectal mural wall thickening Miralax q6h PRN Imodium BID prn Bentyl added for abdominal spasm prn TID. #H/o TIA- hold ASA/Plavix in setting of gross hematuria, restart when resolved #HLD- Atorvastatin - continue #Iron Deficiency Anemia Ferrous sulfate 325 3x weekly Venofer infusion on 10/31 & 11/03 #GERD Continue omeprazole Code status: full code DVT prophylaxis: SCDs, holding chemical in setting of hematuria Family updated at bedside 11/04 Admission and Anticipated Discharge Date Admission Date: November 02, 2024 Brad Ramirez was seen and examined this morning. He reports he has been having some diarrhea & abdominal cramping this AM. Reports he feels weak today & does not want to go home today. Physical Exam Constitutional: no acute distress Respiratory: normal respiratory effort Gastrointestinal (Abdomen): +BS, generalized tenderness to palpation . soft. Neurologic: PERRL, EOMI, accommodation nl, no face palsy, no dysarthria Psychiatric: A+Ox3, euthymic affect Results & Data Results & Data Vital Signs (Past 12 Hours) Vital Signs Temp Pulse Pulse Resp BP Pulse Ox O2 Del Method 11/04/24 10:50 36.7 C 114 H 18 106/70 93 Room Air 11/04/24 09:00 107 H 11/04/24 08:00 37.2 C 109 H 18 110/68 91 Room Air 11/04/24 03:33 36.8 C 98 H 19 128/76 93 Nasal Cannula O2 Flow Rate 11/04/24 10:50 11/04/24 09:00 11/04/24 08:00 11/04/24 03:33 1 PG Care Time/CCT Total # of Minutes Spent Total Time Spent with Patient: Total time spent is greater than 50% in coordination of care (as documented) at patient's floor/unit and/or counseling patient: Coding Level of Care Code 78459 SUB INP/OBS CARE 3/50MIN Diagnoses Gross hematuria R31.0 Hydronephrosis N13.30 Acute kidney injury N17.9 Urothelial carcinoma of bladder C67.9 Neurogenic 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 spinal stenosis M48.062 GERD (gastroesophageal reflux disease) K21.9 Hyperlipidemia E78.5 Sleep apnea G47.30 Transient ischemic attack (TIA) G45.9
--- NOTE | 2024-11-04 11:48 | Urology Progress Note ---
Date of Service November 04, 2024 Assessment & Plan (1) Urothelial carcinoma of bladder: (2) Gross hematuria: (3) Testicular mass: Plan Follow-up of metastatic bladder cancer, bilateral nephrostomy tubes Patient afebrile, tachycardic Hematuria seems to be improving He received 1 unit of PRBCs yesterday, hemoglobin improved to 8.3 today Renal function has improved status post bilateral nephrostomy tube placement, creatinine 1.02 Bilateral nephrostomy tubes draining appropriately Plan to maintain nephrostomy tubes He is scheduled to start systemic chemotherapy on discharge from the hospital Will arrange outpatient follow-up with urology after discharge US scrotum with a 2.7 cm right testicular mass suggestive of malignancy, likely metastatic deposit from bladder cancer No acute intervention, continue with plan for oncology/chemotherapy will sign off, please contact our service with any additional questions or concerns Admission and Anticipated Discharge Date Admission Date: November 02, 2024 Subjective Patient seen and examined at bedside this morning present Patient reports diarrhea, has not gotten much rest No nausea or vomiting No fever or chills Bilateral nephrostomy tubes draining without issue Received 1 unit of packed red blood cells yesterday, hemoglobin 8.3 today Review of Systems Constitutional: as per Subjective / HPI Genitourinary: + as per Subjective / HPI Physical Exam Constitutional: no acute distress Respiratory: normal respiratory effort; no respiratory distress and no labored breathing Gastrointestinal (Abdomen): Inspection/Auscultation: abdomen normal to inspection Musculoskeletal: Head/Neck/Chest: normocephalic Neurologic: moves all extremities and awake Psychiatric: Orientation: alert and oriented x 3 Genitourinary: bilateral nephrostomy tubes draining appropriately with pink tinged urine on left side, clear yellow urine on the right side Results & Data Vital Signs (Past 12 Hours) Vital Signs Temp Pulse Pulse Resp BP Pulse Ox O2 Del Method 11/04/24 10:50 36.7 C 114 H 18 106/70 93 Room Air 11/04/24 09:00 107 H 11/04/24 08:00 37.2 C 109 H 18 110/68 91 Room Air 11/04/24 03:33 36.8 C 98 H 19 128/76 93 Nasal Cannula O2 Flow Rate 11/04/24 10:50 11/04/24 09:00 11/04/24 08:00 11/04/24 03:33 1 PG Care Time/CCT Total # of Minutes Spent Total Time Spent with Patient: Total time spent is greater than 50% in coordination of care (as documented) at patient's floor/unit and/or counseling patient: Coding Level of Care Code 99482 SUB INP/OBS CARE 04/20MIN Diagnoses Urothelial carcinoma of bladder C67.9 Gross hematuria R31.0 Testicular mass N50.89
[2024-11-04] MEDS: DICYCLOMINE HCL 10 MG CAP PO PRN (11:58)
[2024-11-05 03:06] VITALS: RESP 18
[2024-11-05 06:53] LABS: Hematocrit (blood only) 24.4 % (42.0-52.0); Hemoglobin 7.9 g/dl (14.0-18.0); Mean Corpuscular Hemoglobin 29.8 pg (25.0-34.0); Mean Corpuscular Volume 92.1 fL (80.0-100.0); Platelet Count 303 K/uL (130-400); RDW Standard Deviation 51.2 fL (36.4-46.3); Red Blood Count 2.65 M/uL (4.70-6.10); White Blood Count 7.78 K/ul (4.8-10.8)
[2024-11-05 07:16] LABS: Anion Gap 5.0 (3-11); Blood Urea Nitrogen 16.0 mg/dl (6-23); Calcium 8.4 mg/dl (8.6-10.3); Carbon Dioxide 26.0 mmol/L (21-32); Chloride 107.0 mmol/L (98-107); Creatinine Clr Calc Pharmacy 85.9 ml/min; Glucose 110.0 mg/dl (70-99(Fasting)); Potassium 4.1 mmol/L (3.5-5.1); Sodium 138.0 mmol/L (136-145)
[2024-11-05 07:46] VITALS: BP 125/71; TEMP 98.4; O2SAT 92
--- NOTE | 2024-11-05 12:52 | Discharge Summary ---
Discharge Summary Date of Service November 05, 2024 Principal Dx & Hospital Course #1 = Principal Diagnosis (1) Gross hematuria: (2) Hydronephrosis: (3) Acute kidney injury: (4) Urothelial carcinoma of bladder: Plan 74 yo male PMHx Bladder CA, prostate CA (s/p TURP 2021), lumbar spinal stenosis s/p surgical intervention, GERD, HLD, LIZBETH on CPAP, DVT (1999) presents as a direct admit from [facility] s/p bilateral nephrostomy tube placement. #Gross hematuria/ALESIA/Metastatic urothelial CA/UTI H/o prostate CA (dx 2021, s/p TURP), BPH, known hydronephrosis bilaterally (s/p L ureteral stent 08/29/2024). S/p bilateral nephrostomy tube placement at [facility] 11/01. Did require 1 unit PRBCs on 11/03. Hgb stable 7.9. Weakness has improved - stable for discharge home, rx for walker given. Will f/u with dr. jimenez for tomorrow to start immunotherpay and monitor anemia. Plavix and ASA on hold. Urology consulted - scrotal US 2.7cm right testicular mass suggestive of malignancy. no torsion or hydrocele. Continue oxybutynin and tamsulosin. Wound care per [place] instruction. urology follow up outpatient Finished out a course of ceftriaxone for Serratia UTI #Intermittent Diarrhea/Constipation Was having diarrhea ongoing for one month, however now with constipation. CT prior to transfer with circumferential anorectal mural wall thickening Responded well to bentyl and imodium #H/o TIA- hold ASA/Plavix in setting of gross hematuria, held on discharge #HLD- Atorvastatin - continue #Iron Deficiency Anemia Ferrous sulfate 325 3x weekly Venofer infusion on 10/31 & 11/03, 1u PRBC given #GERD - Continue omeprazole Dispo: discharge to home with HH today Family updated at bedside 11/04 & 11/05 Notes For Next Care Provider aspirin and plavix held with hematuria Admission HPI Per Admitting Provider 74 yo male PMHx Bladder CA, prostate CA (s/p TURP 2021), lumbar spinal stenosis s/p surgical intervention, GERD, HLD, LIZBETH on CPAP, DVT (1999) presents as a direct admit from [facility] s/p bilateral nephrostomy tube placement. Recently admitted 10/29/24 for hematuria in setting of metastatic urothelial carcinoma. Had known hydronephrosis at that time with R ureteral stent placed. Planned for left as well but was unable to be placed 2/2 anatomy associated with bladder CA. 3-way catheter was placed with CBI. Given rising creatinine during that hospitalization decision was made to transfer for b/l nephrostomy tube placement. This was completed at [facility] without complication and he was transferred back to [facility]. At the time of admission pt is in NAD, describes fairly well controlled surgical site pain, chronic back pain. R nephrostomy tube draining light colored urine. L nephrostomy tube with pollo hematuria. Bo catheter with hematuria as well. Labs from [facility] day of discharge significant for improved creatinine to 1.48 from high of 3.55 during that hospitalization. Hb was 7.0 at time of discharge. Pt is planned to start chemotherapy following discharge. Discharge Exam General: NAD, VS as above Resp: normal respiratory effort, lungs clear to auscultation CV: RRR, no murmur, Abd: normal bowel sounds, mild generalized tenderness : left nephrostomy tube with clear urine, right nephrotosmy tube with pink tinged urine, no clots Extremities: Moves all extremities, no edema Neuro: A&O x3, Discharge Plan Discharge Items Patient Disposition: Home - Home Health Services Reason For Visit: BLADDER CA, S/P B/L NEPHROSTOMY PLACEMENT Discharge Diagnosis: Metastatic cancer Condition on Discharge: Fair Activity: As commented below Activity Comment: work with therapy to get stronger, increase as tolerated Weightbearing: Full weightbearing Non-emergency contact: Primary Care Provider, Oncologist and Urologist Call non-emergency contact if: you have any medication questions, your symptoms worsen and your rectal temperature is above 100.4 Follow-up/Referrals: Kailash Fox MD [Physician] - 11/18/24 3:20 pm (Hospital follow up on November 18 at 3:20 pm.) Sally Jimenez MD [Physician] - (please attend appointment tomorrow ) Pete Escobar MD [Primary Care Provider] - (follow up within one week ) Diet: Regular Addtl Attending Provider Instructions: Mr. Aranda, You were hospitalized after nephrostomy tube plaement. Thankfully the clots in your nephrostomy output has decreased. Please follow the discharge instructions from sanjiv about wound care and dressing changes for these. Please take tylenol as needed for pain - follow the instructions on the bottle. If that does not help, I have sent in some oxycodone you can use for breakthrough pain. Your aspirin and plavix remain on hold - discuss with Dr. Jimenez and urology about when it is safe to resume these based on your nephrostomy output. You were seen by physical therapy - they recommended rehab, but you have opted to go home with Home health. Make sure you are doing your exercises to get stronger. Imodium can be used for diarrhea, follow the instructions on the box. Bentyl has been sent in for as needed for abdominal cramping. Follow-up appointments: Make an appointment with your primary care physician within one week of discharge. A copy of this summary will be sent to them. Every time you see your primary care physician, or any other doctor, bring your medication list, and a list of questions. CONTACT YOUR PRIMARY CARE PROVIDER if you experience any of the following: Shortness of breath or difficulty breathing Fevers or chills Feeling tired with normal activity or experiencing dizziness or fainting Difficulty following your treatment plan, or difficulty taking medications CALL 911 OR GO TO THE EMERGENCY DEPARTMENT if you experience any of the following: Severe abdominal pain or nausea/vomiting Severe chest pain, or chest pain that radiates (moves) to your jaw or arm Sudden, severe shortness of breath or difficulty breathing Thank you for allowing us to participate in your care. Pending Studies at Discharge: No Stand-Alone Forms: My [facility] [employer], Smoking Cessation Medications and DC Order Prescriptions: New dicyclomine 10 mg Capsule 10 mg PO TID PRN (Reason: abdominal pain) Qty: 30 0RF oxycodone 5 mg Tablet 5 mg PO Q6H PRN (Reason: pain) Qty: 10 0RF Continued tamsulosin 0.4 mg capsule 0.8 mg PO HS ferrous sulfate [FeroSul] 325 mg (65 mg iron) tablet 325 mg PO 3XWK Patient Comments: M/W/F atorvastatin [Lipitor] 40 mg Tablet 40 mg PO HS cyanocobalamin (vitamin B-12) [Vitamin B-12] 1,000 mcg Tablet 1,000 mcg PO QPM omeprazole 40 mg Capsule,Delayed Release(Dr/Ec) 40 mg PO QAM folic acid 1 mg Tablet 1 mg PO QPM cholecalciferol (vitamin D3) 25 mcg (1,000 unit) Tablet 25 mcg PO HS calcium carbonate 500 mg calcium (1,250 mg) Tablet 500 mg PO HS magnesium aspart,citrate,oxide 400 mg magnesium Capsule 400 mg PO HS loperamide 2 mg Capsule 2 mg PO BID PRN (Reason: Loose Stool) Rx Instructions: administer after each loose stool until symptoms controlled; do not exceed 8 mg per 24 hrs vibegron 75 mg tablet 0 mg PO DAILY Patient Comments: spouse/patient arent sure of this medication oxybutynin chloride 5 mg Tablet Extended Release 24hr 5 mg PO QAM Qty: 10 0RF escitalopram oxalate 10 mg Tablet 10 mg PO QAM Qty: 7 0RF Held clopidogrel [Plavix] 75 mg Tablet 75 mg PO QAM Hold Instructions: Resume on 10/25/24. aspirin 81 mg Tablet,Delayed Release (Dr/Ec) 81 mg PO UD Hold Instructions: Resume on 11/08/24. after discussed w/ PCP Rx Instructions: M/W/F Discharge Orders: Discharge Order (Routine); Ordered 11/05/24 Ordered By: Saida Dawkins Admission Data Admit Date/Time: 11/02/24 21:40 Attending Provider: Bety Mireles Admit Provider: Jeet Mcfarlane Primary Care Provider: Pete Escobar Other Providers: [facility] Other Interventions: Discharge Summary Assessment (RN) Last Done: 11/05/24 12:59 Hospital Stay Data Consultations 11/02/24 22:48 Consult Urology Routine Diagnostic Imagining Performed 11/03/24 09:45 US scrotum/testicle Routine Pending Results Patient Have Any Pending Studies at Discharge: No Discharge Instructions Given to Patient (Per Discharging Provider) Mr. Aranda, You were hospitalized after nephrostomy tube plaement. Thankfully the clots in your nephrostomy output has decreased. Please follow the discharge instructions from sanjiv about wound care and dressing changes for these. Please take tylenol as needed for pain - follow the instructions on the bottle. If that does not help, I have sent in some oxycodone you can use for breakthrough pain. Your aspirin and plavix remain on hold - discuss with Dr. Jimenez and urology about when it is safe to resume these based on your nephrostomy output. You were seen by physical therapy - they recommended rehab, but you have opted to go home with Home health. Make sure you are doing your exercises to get stronger. Imodium can be used for diarrhea, follow the instructions on the box. Bentyl has been sent in for as needed for abdominal cramping. Follow-up appointments: Make an appointment with your primary care physician within one week of discharge. A copy of this summary will be sent to them. Every time you see your primary care physician, or any other doctor, bring your medication list, and a list of questions. CONTACT YOUR PRIMARY CARE PROVIDER if you experience any of the following: Shortness of breath or difficulty breathing Fevers or chills Feeling tired with normal activity or experiencing dizziness or fainting Difficulty following your treatment plan, or difficulty taking medications CALL 911 OR GO TO THE EMERGENCY DEPARTMENT if you experience any of the following: Severe abdominal pain or nausea/vomiting Severe chest pain, or chest pain that radiates (moves) to your jaw or arm Sudden, severe shortness of breath or difficulty breathing Thank you for allowing us to participate in your care. Supervising Physician Co-Signing Physician Notes PA Supervision Note: I did not personally see or examine the patient today, but I verified all kyle points of ROCIO Dawkins's assessment and plan with the following exceptions/additions: None Total Time Total Time Spent Total Time Spent (In Minutes): Time spent day of discharge 35 minutes including direct patient care, medication reconciliation, documentation, review of labs and images, and coordination of care. Coding Level of Care Code 18326 INP/OBS DISCH >30 MIN Diagnoses Gross hematuria R31.0 Hydronephrosis N13.30 Acute kidney injury N17.9 Urothelial carcinoma of bladder C67.9
[2024-11-05 13:00] VITALS: PULSE 113
--- NOTE | 2024-11-08 07:21 | Coding Query ---
CODING QUERY To promote full compliance with coding requirements relating to patient care, provider participation is requested in all cases of animal health technician uncertainty. Please assist us with the question(s) below: Coding Question(s): Gross Hematuria is documented and the H&P documents, "Recently admitted 10/29/24 for hematuria in setting of metastatic urothelial carcinoma. Had known hydronephrosis at that time with R ureteral stent placed. Planned for left as well but was unable to be placed 2/2 anatomy associated with bladder CA. 3-way catheter was placed with CBI. Given rising creatinine during that hospitalization decision was made to transfer for b/l nephrostomy tube placement. This [place] [facility] [place] and he was transferred back to [facility]", and the Urology Consultation documents, "This is a 74 year old male with history of metastatic urothelial carcinoma. He was recently admitted with gross hematuria and worsening creatinine. Previous attempt at right ureteral stent placement have been unsuccessful due to tumor burden within the bladder. Was transferred to [facility], where bilateral nephrostomy tubes were placed. He was subsequently returned to [facility]". Please specify below, in your clinical opinion, the most likely cause/source of the Gross Hematuria during this admission: (x) Gross Hematuria is most likely due to metastatic urothelial cancer of the bladder ( ) Gross Hematuria is most likely a Complication of recent Nephrostomy Tube placement procedure ( ) Gross Hematuria is most likely a Complication of the Nephrostomy Tube ( ) Gross Hematuria is most likely due to Other: Please Specify ( ) Gross Hematuria is with Unknown most likely cause Physician's Response(s): Thank you Melvi Obando Principal Diagnosis: "that condition established after study, to be chiefly responsible for occasioning the admission of the patient to the hospital for care." Co-Existing Principal Diagnosis: "when two or more diagnoses equally meet the criteria for principal diagnosis as determined by the circumstances of admission, diagnostic work up, and/or therapy provided, and the Alphabetic Index, Tabular List, or another coding guideline does not provide sequencing direction, any one of the diagnoses may be sequenced first." "When the physician has documented what appears to be a current diagnosis in the body of the record, but has not included the diagnosis in the final diagnostic statement, the physician should be asked whether the diagnosis should be added." (Source Coding Clinic 2 QTR90. p3-4) GILMAR
== END 2024-11-05 14:23 | disposition home health service (06) | DRG 687 ==
LOC: SUATTDRO 21:40 → 2E 21:40